=== PATIENT | male | born 1965 | race Caucasian/White ===

== ENCOUNTER 2018-01-15 12:26 | Inpatient (IN) | payer OTHER ==
[~2018-01-15] VITALS: Ht 177.8 cm; Wt 124.9 kg
[~2018-01-15 12:26] MED LIST: ANDROGEL75 G1 TOP; BUPROPION XL300 M1 PO; CARVEDILOL6.25 M1 PO; CREON DR 24,001 EACH PO; DEXTROAMP-AMPHE30 MG PO; GABAPENTIN400 M2 PO; HYDROXYZINE PAM25 M2 PO; IBUPROFEN800 M1 PO; LOSARTAN POTAS100 M1 PO; METHADONE10 MG/1 M2 PO; OMEGA-3 ACID ETH1 GM PO; ZOLPIDEM TARTRA10 M1 PO
[2018-01-15 13:22] LABS: ABSOLUTE BASOPHIL COUNT 0 /CUMM (0.0-0.2); ABSOLUTE EOSINOPHIL COUNT 0.1 /CUMM (0.0-0.7); ABSOLUTE GRANULOCYTE CT 13.9 /CUMM (1.4-6.5); ABSOLUTE LYMPH COUNT 1.2 /CUMM (1.2-3.4); ABSOLUTE MONOCYTE COUNT 0.5 /CUMM (0.10-0.60); BASOPHIL % 0.2 % (0.0-2.0); EOSINOPHIL % 0.5 % (0-5); HEMATOCRIT 29.3 % (42-52); MEAN CORPUSCULAR HGB 28.4 PG (27.0-31.0); MEAN CORPUSCULAR HGB CONC 33.3 G/DL (33.0-37.0); MEAN CORPUSCULAR VOLUME 85.2 FL (80.0-94.0); MEAN PLATELET VOLUME 6.4 FL (7.4-10.4); PLATELET COUNT 334 /CUMM (130-400); RBC DISTRIBUTION WIDTH 14.6 % (11.5-14.5); RED BLOOD CELL CT 3.44 /CUMM (4.70-6.10); WHITE BLOOD CELL COUNT 15.7 /CUMM (4.8-10.8)
--- NOTE | 2018-01-15 13:31 | ED DYSPNEA/ASTHMA COMPLAINT ---
History of Present Illness General Chief Complaint: General Adult Stated Complaint: SENT BY FOR POTENTIAL BLOOD CLOT IN CHEST Source: patient Exam Limitations: no limitations Vital Signs & Intake/Output Vital Signs & Intake/Output Vital Signs Date Time Temp Pulse Resp B/P B/P Pulse O2 O2 Flow FiO2 Mean Ox Delivery Rate 01/17 1925 40 01/17 1647 60 01/17 1430 60 01/17 1250 81 141/74 01/17 1249 80 141/74 01/17 1219 60 01/17 0850 60 01/17 0730 96.6 100 38 176/100 01/17 0609 98 92 01/17 0513 97.5 65 43 150/93 01/17 0342 101 91 01/17 0204 98.6 95 26 158/100 93 Nasal 5.0L Cannula 01/17 0202 84 Nasal 3.0L Cannula 01/17 0200 93.0 158/100 01/17 0000 91 Nasal 3.0L Cannula 01/16 2151 88 140/90 01/16 2147 97.5 88 140/90 91 Nasal 3.0L Cannula 01/16 2022 93 Nasal 3.0L Cannula ED Intake and Output 01/17 0000 01/16 1200 Intake Total 1440 Output Total 1001 700 Balance 439 -700 Intake, IV 120 Intake, Oral 1320 Number 2 Bowel Movements Output, Stool 1 Output, Urine 1000 700 Patient 275 lb Weight Allergies Coded Allergies: Penicillins (UNKNOWN 01/15/18) Reconcile Medications Bupropion HCl (Bupropion XL) 300 MG TAB.ER.24H 1 TAB PO QAM MENTAL HEALTH ( Reported) Carvedilol 6.25 MG TABLET 1 TAB PO BID HEART (Reported) Dextroamphetamine/Amphetamine (Dextroamp-Amphetamin 30 MG Tab) 30 MG TABLET 1 TAB PO BID MENTAL HEALTH (Reported) Gabapentin 400 MG CAPSULE 2 CAP PO TID UNKNOWN (Reported) Ibuprofen 800 MG TABLET 1 TAB PO TID PRN pain Lipase/Protease/Amylase (Feliz Guzman 24,000 Units Capsule) 24-76-120K CAPSULE.DR 3 TAB PO TID UNKNOWN (Reported) Losartan Potassium 100 MG TABLET 1 TAB PO DAILY HEART (Reported) Methadone HCl 10 MG/ML ORAL.CONC 30 MG PO DAILY MAINTENCE (Reported) [place]-3 Acid Ethyl Esters 1 GRAM CAPSULE 1 CAP PO TID SUPPLEMENT (Reported) Testosterone (Androgel) 20.25/1.25 ADMINISTRATIVE PROJECT COORDINATOR 40.5 TOP DAILY UNKNOWN ( Reported) Zolpidem Tartrate 10 MG TABLET 1 TAB PO QPM SLEEP (Reported) Triage Note: PT WAS [facility] FOR R/O PE. PT STATES SOB X 2 DAYS. PT TACHY IN TRIAGE HR 103. PT RECENTLY HAD SURGERY ON LEFT LEG COMPOUND FX. O2 SATS 89% ON RA Triage Nurses Notes Reviewed? yes Onset: Abrupt Duration: day(s): (2), constant, continues in ED, getting worse Timing: single episode today Severity: moderate, severe Activities at Onset: activity Prior Episodes/Possible Cause: no prior episodes Modifying Factors: Improves With: rest. Worsens With: movement. Associated Symptoms: cough HPI: 52-year-old male past medical history hypertension since run patient shortness of breath. Patient states that symptoms started 2 days ago to be getting worse. He reports that he feels short of breath and has a cough reductive of clear sputum that is worse on exertion. Improves somewhat with rest but is still present. Patient had surgery on his left lower extremity to repair a fracture 2 weeks ago. No previous history of PE or DVT. No chest pain or hemoptysis. No lower extremity edema that he can see. He does note that he has had episodes of acute bronchitis in the past multiple times initially thought that's what this was. He went to his primary care doctor today and was referred to the ER to rule out pulmonary embolism. He is also reporting pain in his left lower extremity related to the surgery. Taking morphine for this last dose was yesterday. He states the pain as a 10 out of 10. No numbness or tingling nausea vomiting sweats chills fever abdominal pain back pain or any other associated symptoms. (Ammon Walter) Past History Travel History Traveled to [place] past 21 day No Medical History Any Pertinent Medical History? see below for history Neurological: NONE EENT: NONE Cardiovascular: hypertension Respiratory: NONE Gastrointestinal: NONE Hepatic: NONE Renal: NONE Musculoskeletal: NONE Psychiatric: NONE Endocrine: NONE Blood Disorders: NONE Cancer(s): NONE GENERAL MANAGER IN TRAINING/Reproductive: NONE Surgical History Surgical History: none Psychosocial History What is your primary language Ugandan Tobacco Use: Quit >30 days ago ETOH Use: occasional use Illicit Drug Use: denies illicit drug use Family History Hx Contributory? No (Ammon Walter) Review of Systems Review of Systems Constitutional: Reports: no symptoms. EENTM: Reports: no symptoms. Respiratory: Reports: see HPI, cough, short of breath, sputum production, wheezing. Cardiovascular: Reports: no symptoms. GI: Reports: no symptoms. Genitourinary: Reports: no symptoms. Musculoskeletal: Reports: see HPI, joint pain, muscle pain, muscle stiffness. Skin: Reports: no symptoms. Neurological/Psychological: Reports: no symptoms. Hematologic/Endocrine: Reports: no symptoms. Immunologic/Allergic: Reports: no symptoms. All Other Systems: Reviewed and Negative (Ammon Walter) Physical Exam Physical Exam General Appearance: well developed/nourished, no apparent distress, alert, awake , obese Head: atraumatic, normal appearance Eyes: Bilateral: normal appearance, PERRL, EOMI. Ears, Nose, Throat: normal pharynx, normal ENT inspection, hearing grossly normal Neck: normal inspection, supple, full range of motion, NO JVD Respiratory: chest non-tender, no respiratory distress, rhonchi, wheezing Cardiovascular: normal peripheral pulses, tachycardia Peripheral Pulses: 2+ radial (R), 2+ radial (L) Gastrointestinal: soft, non-tender Extremities: THE LEFT LOWER EXTREMITY IS IN A CAST FROM THE PROXIMAL TIBIA TO THE FOOT. nO OBSERVABLE LOWER EXTREMITY EDEMA. fULL RANGE OF MOTION OF THE REMAINING EXTREMITIES Neurologic/Psych: no motor/sensory deficits, awake, alert, oriented x 3 Skin: intact, normal color, warm/dry Lymphatic: no anterior cervical esmer Core Measures ACS in differential dx? No CVA/TIA Diagnosis No Sepsis Present: No Sepsis Focused Exam Completed? No (Ammon Walter) Progress Differential Diagnosis: asthma, AMI, bronchitis, CHF, COPD, pulmonary embolism, pneumonia, unstable angina Plan of Care: Orders Procedure Date/time Status ARTERIAL BLOOD GAS (GEN) 01/18 0600 Active XRY-PORTABLE CHEST XRAY 01/18 0500 Active CBC WITHOUT DIFFERENTIAL 01/18 0500 Active Lab Add-on Test 01/17 1006 Active ARTERIAL BLOOD GAS (GEN) 01/17 0955 Complete RAPID VIRAL INFLUENZA A 01/17 0938 Complete Lab Add-on Test 01/17 0930 Active LACTIC ACID 01/17 0930 Complete CREATINE PHOSPHOKINASE 01/17 0930 Complete LOWER RESPIRATORY CULTURE 01/17 0920 Active Restraint- Medical 01/17 0901 Active Amos, Insertion/Removal/Asses 01/17 0901 Active VENTILATOR PARAMETERS 01/17 0850 Complete Lab Add-on Test 01/17 0737 Active CULTURE,URINE 01/17 0707 Active CULTURE,URINE 01/17 0639 Active GLYCOSYLATED HGB 01/17 0600 Complete TROPONIN LEVEL 01/17 0515 Complete PHOSPHORUS 01/17 0515 Complete LIPID PANEL 01/17 0515 Complete LIPASE 01/17 0515 Complete B-TYPE NATRIURETIC PEP (BNP) 01/17 0515 Complete AMYLASE 01/17 0515 Complete VRE ACTIVE SURVIELLANCE 01/17 0509 Active ACTIVE SURVEILLANCE NARES 01/17 0509 Active Transfer Disposition 01/17 0454 Active Transfer patient to 01/17 0425 Active ARTERIAL BLOOD GAS (GEN) 01/17 0256 Complete RT RE-EVALUATION 01/17 UNK Active OXYGEN SETUP (GEN) 01/17 UNK Complete CONTIN. POSITIVE AIRWAY PRESS 01/17 UNK Complete Lab Add-on Test 01/17 UNK Active Patient Safety Monitor 01/17 UNK Complete Restraint- Medical 01/17 UNK Active FingerStick- Glucose 01/17 UNK Active Amos, Insertion/Removal/Asses 01/17 UNK Active ICU LAB BUNDLE 01/17 UNK Active PSYCHIATRIC CONSULT 01/17 UNK Active OXYGEN SETUP CHG 01/16 UNK Complete INCENTIVE SPIROMETRY TRX CHG 01/16 UNK Complete AEROSOL CHG 01/16 UNK Complete OXYGEN 01/16 UNK Complete OXYGEN TRANSPORT 01/16 UNK Complete Current Medications Sig/Dylan Start time Last Medication Dose Stop Time Status Admin Cyanocobalamin/ 1 BAG DAILY 01/17 1851 AC Thiamine/Pyridoxine (Vitamin in I.V.) Dextrose/Water 1,000 ML (D5W 1000) Budesonide 0.5 MG BID 01/17 1415 AC 01/17 (Pulmicort) 1915 Lorazepam 100 MG Q10H 01/17 1400 AC 01/17 (Ativan Drip) 1435 Dextrose/Water 1,000 ML (Dextrose 5%) Methylprednisolone 40 MG Q8 01/17 1400 AC 01/17 (Solumedrol) 1251 Morphine Sulfate 2 MG Q6-PRN PRN 01/17 1030 AC (MORPHINE SULFATE) Nystatin 1 ARMIDA TID 01/17 1000 AC 01/17 (Mycostatin) 1515 Pantoprazole Sodium 40 MG DAILY 01/17 1000 AC 01/17 (Protonix) 1034 Propofol 1,000 MG Q7H 01/17 0945 AC 01/17 (PROPOFOL DRIP) 1653 N/A 1 UNIT (No Carrier) Azithromycin 500 MG Q24H 01/17 2000 AC 01/16 (Zithromax) 2150 Sodium Chloride 250 ML (Normal Saline 0.9%) Lorazepam 0 Q1P PRN 01/16 1315 AC 01/17 (Ativan) 0857 Albuterol Sulfate 3 ML BID 01/16 1000 AC 01/17 (Proventil) 1915 Ceftriaxone Sodium 1,000 MG DAILY 01/16 1000 AC 01/17 (Rocephin) 1034 Enoxaparin Sodium 40 MG DAILY 01/16 1000 AC 01/17 (Lovenox) 1035 Losartan Potassium 100 MG DAILY 01/16 1000 AC 01/17 (Cozaar) 1250 Carvedilol 6.25 MG BID 01/15 2200 AC 01/17 (Coreg) 1249 Montelukast Sodium 10 MG AT BEDTIME 01/15 2200 AC 01/16 (Singulair) 215 Acetaminophen 650 MG Q6P PRN 01/15 2030 AC (Tylenol) Laboratory Tests 01/17/18 1049: Lactic Acid 1.1, Creatine Kinase 53 L 01/17/18 1040: pH 7.41, pCO2 40, pO2 78 L, HCO3 24, ABG O2 Sat (Measured) 95.0 L, P-50 (Temp Corrected) N, Carboxyhemoglobin 0 L, O2 Concentration % 60%, Respiration Rate 20, O2 Delivery Method VENT, Vent Mode AC, Expiratory Pressure 5, Tidal Volume 500, Pressure Support 0, Phlebotomy Draw Site RIGHT RADIAL 01/17/18 0600: Hemoglobin A1c 5.8 01/17/18 0515: Anion Gap 14, Estimated GFR > 60, BUN/Creatinine Ratio 22.9, Phosphorus 4.3, Magnesium 1.8, Troponin I < 0.01, Mgy-V-[id number] Pept 1370 H, Triglycerides 115, Cholesterol 113, LDL Cholesterol, Calc 43 L, HDL Cholesterol 47, Cholesterol/HDL Ratio 2, Amylase 51, Lipase 121, CBC w Diff NO MAN DIFF REQ, RBC 3.40 L, MCV 86.8, MCH 27.7, MCHC 32.0 L, RDW 14.8 H, MPV 6.9 L, Gran % 83.2 H, Lymphocytes % 11.3 L, Monocytes % 4.8, Eosinophils % 0.3, Basophils % 0.4, Absolute Granulocytes 14.2 H, Absolute Lymphocytes 1.9, Absolute Monocytes 0.8 H, Absolute Eosinophils 0, Absolute Basophils 0.1 01/17/18 0310: pH 7.42, pCO2 36, pO2 66 L, HCO3 23, ABG O2 Sat (Measured) 93.0 L, P-50 (Temp Corrected) N, Carboxyhemoglobin 0.8 L, O2 Concentration % 6L, O2 Delivery Method N/C, Phlebotomy Draw Site RIGHT RADIAL Microbiology 01/17 1644 NASOPHARYN: Influenza Virus A & B Rapid Smear - COMP 01/17 900 LOWER RESP: Respiratory Culture - RES 01/17 900 LOWER RESP: Gram Stain - RES 01/17 07 URINE ROUT: Urine Culture - RECD 01/17 707 URINE ROUT: Urine Culture - COLB 01/17 500 UPPER RESP: Surveillance Culture - RECD 01/17 050 GI: Surveillance Culture - RECD Patient seen and evaluated. Currently he is hypoxic on room air to 89% he does have some wheezing and rhonchi. Is also slightly tachycardic. Patient will be medicated with a DuoNeb and IV morphine for pain control. We'll check basic blood work including d-dimer patient will also get a CTA to rule out PE. CTA was negative for PE but showed possible infiltrate/atelectasis in the right lower lobe. Patient does have an elevated white blood cell count of 16,000 with a left shift. Despite DuoNeb he still remains hypoxic. When he was an related in the emergency department he desaturated to the 80s. Patient is not on oxygen at baseline. He has no history of COPD or asthma. Patient will be admitted to the hospital for treatment of acute bronchitis/early pneumonia. He was given a dose of Zithromax, ceftriaxone and Solu-Medrol. Patient requires admission to the hospital for IV steroids, IV antibiotics, serial labs, serial chest x-rays, pulmonology consult, DuoNeb's, oxygen administration, monitoring of vital signs, serial EKGs. Case discussed with Dr. BUI and he agrees. Diagnostic Imaging: Viewed by Me: CT Scan. Discussed w/RAD: CT Scan. Radiology Impression: PATIENT: FANTA HAMLIN PRESENT AGE: 52 PATIENT ACCOUNT NO: [id number] : 65 LOCATION: [facility] ORDERING PHYSICIAN: Ammon FAIR SERVICE DATE: 01/15/18 EXAM TYPE: CAT - CTA CHEST-PULMONARY EMBOLISM EXAMINATION: CT ANGIOGRAM OF THE CHEST WITH AND WITHOUT CONTRAST (CT PULMONARY ANGIOGRAM FOR PE) CLINICAL INFORMATION: Reason for Study:
Presumptive Dx: PE
Signs Symptoms: SOB RECENT SURGERY
COMPARISON: None TECHNIQUE: Prior to contrast administration, noncontrast localization images were obtained. Subsequently, multidetector volumetric imaging was performed from the thoracic inlet to below the diaphragms following the administration of 80 mL Omnipaque 350 intravenous contrast. No contrast reaction reported. Sagittal, coronal, and MIP oblique sagittal reformatted images were obtained on the CT workstation, uploaded to PACS, and reviewed. Total exam dose- length product 585 mGy-cm. FINDINGS: The there is no filling defect to suggest a pulmonary embolism. Centrally a esophagus filled with fluid. Mildly dilated. There is some mild mediastinal adenopathy. Prominent subcarinal node measures 1.1 cm short axis. Precarinal node to the right of midline 1.3 cm Imaging lung best. Right lung; Small effusion on the right. Right basilar atelectasis/ infiltrate. Some scattered areas of lung nodularity. 4 mm nodule on image 37 right lung anterior. Groundglass nodule on image 40 measures 8 mm. 6 mm nodule on image 36 right lower lung zone. Left lung; Trace left-sided effusion. Mild left basilar atelectasis or infiltrate. 6 mm nodule on image 36 left lower lobe. Some smaller scattered areas of nodularity are noted. IMPRESSION: There is no filling defect to suggest a pulmonary embolism. Mild bi basilar right greater than left atelectasis/infiltrates and small right effusion and trace left effusion. Prominent central adenopathy. This may be reactive but underlying malignancy cannot be excluded.. Consider PET/CT at this time to further evaluate versus close follow-up CT in 3 months for continued evaluation of this and underlying nodularity described above. DICTATED BY: Denis Waters MD DATE/TIME DICTATED:01/15/181631 WORKFORCE SERVICES REPRESENTATIVE:NIDIA DATE/TIME TRANSCRIBED:1631 CONFIDENTIAL, DO NOT COPY WITHOUT APPROPRIATE AUTHORIZATION. Initial ED EKG: normal sinus rhythm (RATE 74), BORDERLINE PROLONGED QT (Ammon Walter) Departure Departure Disposition: STILL A PATIENT Condition: Stable Clinical Impression Primary Impression: Acute bronchitis Qualifiers: Bronchitis organism: unspecified organism Qualified Code: J20.9 - Acute bronchitis, unspecified Secondary Impressions: Hypoxia Leukocytosis Qualifiers: Leukocytosis type: unspecified Qualified Code: D72.829 - Elevated white blood cell count, unspecified Referrals: Harley Vasquez MD (PCP/Family) Departure Forms: Customer Survey General Discharge Information Admission Note Spoke With: Lindsey Herrera MD Documentation of Exam: Documentation of any treatments & extenuating circumstances including Concerns Regarding Discharge (functional status, medication knowledge or non-compliance, living conditions, etc.) that warrant an admission rather than observation: [duo nebs, iv steriods, iv antibiotics, serial labs, serial ekgs, serial chest x-rays , pulm consult oxygen] (Ammon Walter) PA/BIOLOGIST AIDE Co-Sign Statement Statement: ED Attending supervision documentation- X I saw and evaluated the patient. I have also reviewed all the pertinent lab results and diagnostic results. I agree with the findings and the plan of care as documented in the PA's/BIOLOGIST AIDE's documentation. S/P Sx with cough, sob, hypoxia. Pneumonia on CTA [] I have reviewed the ED Record and agree with the PA's/BIOLOGIST AIDE's documentation. [] Additions or exceptions (if any) to the PAs/BIOLOGIST AIDE's note and plan are summarized below: [] (Carina KU,Mark) Critical Care Note Critical Care Note Critical Care Time: 30-74 min (Ammon Walter)
[2018-01-15 13:33] LABS: PT 12.4 SEC (9.4-12.5); PTT 27 SEC (25-37)
[2018-01-15 13:47] LABS: GRANULOCYTE % 88.1 % (42.2-75.2)
--- NOTE | 2018-01-15 16:46 | CT SCAN REPORT ---
EXAMINATION: CT ANGIOGRAM OF THE CHEST WITH AND WITHOUT CONTRAST (CT PULMONARY ANGIOGRAM FOR PE) CLINICAL INFORMATION: Reason for Study:
Presumptive Dx: PE
Signs Symptoms: SOB RECENT SURGERY
COMPARISON: None TECHNIQUE: Prior to contrast administration, noncontrast localization images were obtained. Subsequently, multidetector volumetric imaging was performed from the thoracic inlet to below the diaphragms following the administration of 80 mL Omnipaque 350 intravenous contrast. No contrast reaction reported. Sagittal, coronal, and MIP oblique sagittal reformatted images were obtained on the CT workstation, uploaded to PACS, and reviewed. Total exam dose-length product 585 mGy-cm. FINDINGS: The there is no filling defect to suggest a pulmonary embolism. Centrally a esophagus filled with fluid. Mildly dilated. There is some mild mediastinal adenopathy. Prominent subcarinal node measures 1.1 cm short axis. Precarinal node to the right of midline 1.3 cm Imaging lung best. Right lung; Small effusion on the right. Right basilar atelectasis/infiltrate. Some scattered areas of lung nodularity. 4 mm nodule on image 37 right lung anterior. Groundglass nodule on image 40 measures 8 mm. 6 mm nodule on image 36 right lower lung zone. Left lung; Trace left-sided effusion. Mild left basilar atelectasis or infiltrate. 6 mm nodule on image 36 left lower lobe. Some smaller scattered areas of nodularity are noted. IMPRESSION: There is no filling defect to suggest a pulmonary embolism. Mild bi basilar right greater than left atelectasis/infiltrates and small right effusion and trace left effusion. Prominent central adenopathy. This may be reactive but underlying malignancy cannot be excluded.. Consider PET/CT at this time to further evaluate versus close follow-up CT in 3 months for continued evaluation of this and underlying nodularity described above.
--- NOTE | 2018-01-15 18:18 | History & Physical ---
Jalen KU,[facility] 01/15/181816: General Information and HPI MD Statement: I have seen and personally examined FANTA HAMLIN and documented this H&P. The patient is a 52 year old M who presented with a patient stated chief complaint of [shortness of breath]. Source of Information: patient, family Exam Limitations: no limitations History of Present Illness: 52 year old male past medical history of hypertension, ANDREW on CPAP at night presented to the ED with complains of worsening shortness of breath for the past 2 days. The patient states that on Monday afternoon he started feeling a little short of breath. On Monday his symptoms progressed getting worse with exertion and by night he had significant difficulty breathing even at rest. He put on his CPAP but that did little to help his symptoms. mentions she could hear him wheezing. He went to see his PCP this morning as he was still feeling short of breath this morning. Patient states that his oxygen sats were in the 80s while he was in the PCP office. His PCP advised him to go to the ER to rule out a blood clot in his lung as he recently had reconstructive surgery two weeks ago on his left leg after a fall. The mentions that the patient was having a cough since Monday, bringing up whitish sputum and he got some Robitussin DM for it which provided him some relief of symptoms. No history of sick contacts. Patient also mentions about having loose bowel movements 3-4 episodes per day since Monday. Patient states that he drinks about 2 pints of Vodka daily. Allergies/Medications Allergies: Coded Allergies: Penicillins (UNKNOWN 01/15/18) Home Med list Bupropion HCl (Bupropion XL) 300 MG TAB.ER.24H 1 TAB PO QAM MENTAL HEALTH ( Reported) Carvedilol 6.25 MG TABLET 1 TAB PO BID HEART (Reported) Dextroamphetamine/Amphetamine (Dextroamp-Amphetamin 30 MG Tab) 30 MG TABLET 1 TAB PO BID MENTAL HEALTH (Reported) Gabapentin 400 MG CAPSULE 2 CAP PO TID UNKNOWN (Reported) Ibuprofen 800 MG TABLET 1 TAB PO TID PRN pain Lipase/Protease/Amylase (Feliz Guzman 24,000 Units Capsule) 24-76-120K CAPSULE.DR 3 TAB PO TID UNKNOWN (Reported) Losartan Potassium 100 MG TABLET 1 TAB PO DAILY HEART (Reported) Methadone HCl 10 MG/ML ORAL.CONC 30 MG PO DAILY MAINTENCE (Reported) Mindoro-3 Acid Ethyl Esters 1 GRAM CAPSULE 1 CAP PO TID SUPPLEMENT (Reported) Testosterone (Androgel) 20.25/1.25 SPEECH INSTRUCTOR 40.5 TOP DAILY UNKNOWN ( Reported) Zolpidem Tartrate 10 MG TABLET 1 TAB PO QPM SLEEP (Reported) Past History Travel History Traveled to [place] past 21 day No Medical History Neurological: SEIZURE x 1 S/P HEAD INJ EENT: NONE Cardiovascular: hypertension Respiratory: CHRONIC BRONCHITIS SINCE Gastrointestinal: umbilical hernia Hepatic: NONE Renal: NONE Musculoskeletal: disk herniation, COMPOUND FX L ANKLE BONE SPURS IN NECK/BACK Psychiatric: NONE Endocrine: NONE Blood Disorders: NONE Cancer(s): NONE BRAZER CONTROLLED ATMOSPHERIC FURNACE/Reproductive: NONE Surgical History Surgical History: none Past Family/Social History Psychosocial History ETOH Use: occasional use Illicit Drug Use: denies illicit drug use Review of Systems Review of Systems Constitutional: Denies: chills, fever. EENTM: Reports: no symptoms. Cardiovascular: Reports: peripheral edema. Denies: chest pain, orthopena. Respiratory: Reports: cough, short of breath, sputum production, wheezing. GI: Reports: diarrhea. Denies: abdominal pain. Genitourinary: Reports: hesitation. Musculoskeletal: Reports: no symptoms. Skin: Reports: no symptoms. Neurological/Psychological: Reports: no symptoms. Exam & Diagnostic Data Last 24 Hrs of Vital Signs/I&O Vital Signs Date Time Temp Pulse Resp B/P B/P Pulse O2 O2 Flow FiO2 Mean Ox Delivery Rate 01/15 2027 98.2 86 18 126/73 94 Room Air 01/15 1720 98.5 88 22 150/93 96 Nasal 6.0L Cannula 01/15 1609 97 22 134/83 97 Nasal 6.0L Cannula 01/15 1420 91 20 134/67 95 Nasal 5.0L Cannula 01/15 1355 95 Nasal 4.0L Cannula 01/15 1330 Room Air 01/15 1254 99.8 102 20 123/71 89 Room Air Intake & Output 01/15 1600 01/15 0800 01/15 0000 Intake Total Output Total Balance Patient 250 lb Weight Weight Reported by Patient Measurement Method Physical Exam General Appearance Alert, Oriented X3, Cooperative, Mild Distress Skin No Rashes, No Breakdown Skin Temp/Moisture Exam: Warm/Dry Sepsis Skin Exam (color): Normal for Ethnicity HEENT Atraumatic Cardiovascular Normal S1, Normal S2, No Murmurs Lungs Clear to Auscultation, Normal Air Movement Abdomen Soft, No Tenderness Neurological Normal Speech Extremities RLE edema, Left leg in cast Assessment/Plan Assessment: 52 year old male past medical history of hypertension, ANDREW on CPAP at night presented to the ED with complains of worsening shortness of breath for the past 2 days. Assessment: 1. Acute Hypoxic Respiratory Failure likely secondary to bronchitis and ? underlying pneumonia 2. History of Heavy Alcohol Use 3. History of Hypertension 4. Left Foot Reconstructive Surgery 5. Anemia 6. Lung nodules Plan: * Patient likely has viral bronchitis though he could be developing superimposed pneumonia as demonstrated by his imaging. He does have a high white count of 15.7. * Oxygen supplementation if needed * Continue IV Ceftriaxone 1g and IV Azithromycin 500mg daily. * Prednisone 40mg with quick taper. * Continue CPAP at night. * TRC/Nebs as needed. * Pulm consult with Dr Martinez in am * Rapid flu test * Will follow up blood culture * Ativan per [facility]. He may go into withdrawal. * Utox - patient was on methadone for a while but states he's currently not on it. * He does have elevated proBNP. No wheezing on exam though. * His Chest CTA shows bilateral small nodules (6mm on left, 4mm and 6mm on right ) * Continue home medications for hypertension * Diet: Regular * DVT Prophylaxis: SC Lovenox * Code: Full Code As Ranked By This Provider Problem List: 1. Acute bronchitis Qualifiers Bronchitis organism: unspecified organism Qualified Code: J20.9 - Acute bronchitis, unspecified Core Measures/Misc (07/16) Acute Coronary Syndrome ACS Diagnosis: No Congestive Heart Failure Congestive Heart Failure Diagnosis No Cerebrovascular Accident CVA/TIA Diagnosis: No VTE (View Protocol) VTE Risk Factors Age>40 No Mechanical VTE Prophylaxis d/t N/A MechProphylax Ordered No VTE Pharm Prophylaxis d/t NA PharmProphylax ordered Sepsis (View protocol) Sepsis Present: No Anna Sorto MD 01/15/182125: Resident Review Statement Resident Statement: examined this patient, discussed with financial analyst intern, agreed with financial analyst intern Other Findings: The patient is a 52-year-old man with a past medical history of hypertension, ANDREW on CPAP at night, ADHD and recent left foot surgery 2 weeks prior to presentation with complaints of worsening shortness of breath for the past 3 days. His shortness of breath is worse with exertion and associated with a wheeze and cough productive of whitish sputum. He went to see his PCP this morning as he was still feeling short of breath and O2 sats were in the 80s. He was sent to the ER to rule out a blood clot in his lung as he recently had reconstructive surgery two weeks ago on his left leg after a fall. No history of sick contacts. Patient also mentions about having loose bowel movements 3-4 episodes per day since Monday. On presentation in the ER he was hypoxic on room air to 89%. CTA was negative for PE but showed mild bibasilar infiltrates/atelectasis R>L and prominent central adenopathy follow up CT in 3 month advised. Physical exam significant for bilateral bronchial breath sounds and mild expiratory wheeze on lung exam. Labs significant for ALP of 138 and Pro BNP of 904. CBC shows WBC of 15.7, Hb 9.8 and platelet of 334 without bands. Urinalysis clear. Urine toxicology benzodiazepines and opiates (medications administered in the ER). . Assessment 1. Acute hypoxic respiratory failure with multifactorial etiology-secondary to acute bronchitis with probable pneumonia and ANDREW 2. ETOH abuse at high risk for withdrawal 3. Hypertension 4. Left leg post surgical pain and chronic back pain 5. History of heroin abuse formerly on methadone 6. ANDREW on CPAP 7. ADHD Plan * [facility] * Patient received IV ceftriaxone and azithromycin in the ER and IV solumedrol 125 mg * Continue IV ceftriaxone 1 g daily and IV azithromycin 500 mg daily * Continue PO prednisone 40 mg daily and plan for quick taper * O2 by intranasal canula to keep SPO2 > 92% * Pulmonology consult with Dr. Martinez in the AM * Place on CIWA protocol and monitor for ETOH withdrawal as patient drinks 1-2 pints of vodka daily and last drink was reportedly yesterday * IV ativan as per CIWA for now * PO percocet 1 tab PO Q 6 hrs, IV morphine 4 mg Q 12 hrs for severe pain * Patient states that he stopped his methadone in August 2017 on his own accord * CTPMP checked today at 1200 AM and no concerning patterns of opiate use detected * [facility] ordered for CPAP at night for today. Patient and has been counselled to bring their own machine from home for tomorrow * Continue home medications for ADHD and depression * CA lovenox 40 mg daily * Patient is full code Kishan KU, [facility] 01/16/18 0031: Attending MD Review Statement Attending Statement Attending MD Statement: examined this patient, discuss w/resident/PA/CARTON FORMING MACHINE TENDER, agreed w/resident/PA/CARTON FORMING MACHINE TENDER, reviewed images, amended to note Attending Assessment/Plan: 52 yo obese M with h/o HTN, ANDREW on CPAP, recurrent bronchitis, ADHD, HLD, alcohol dependence, isolated seizure episode (probably from alcohol wd), pancreatitis, GERD, depression, chronic pain/ heroin abuse was on methadone, who underwent left foot recontructive surgery on December [address] Hassan ([place] ), is here for 2 day h/o exertional dyspnea, productive cough and wheezing. C/o congestion and hoarseness of voice. He went to his PCP's office where his O2 sats were in the low 80's so he was sent to ER for further evaluation. He reports being less active and more sedentary since his surgery. He is scheduled to follow with Dr. Hassan later this week. He denies chest pain, palpitations, lightheadedness, but reports having nonbloody diarrhea for past [address] 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 Patient reports alcohol abuse, drinks 2 pints of Vodka daily and reports never having undergone a detox. He is also on morphine for his pain as prescribed by Dr. Hassan. He also has oxycodone prescribed by PCP. He reports he does not take too much of them. Of note, patient was in a methadone program but stopped 2 months ago. Vitals: afebrile, HR 90-100's, BP 140/80, sats 89% RA --> 97% on 6L --> 94% on 2L. Exam: AAO, hoarse voice, seems hyperactive, speaking fast and at times difficult to understand his words, MMM, Neck supple, Pupils mid-dilated, RTL, Chest b/l reduced air entry with bibasilar rhonchi and expiratory wheeze, Heart S1S2 regular, Abd soft, obese, LE: chronic venous stasis changes, right leg 1+ edema+ , left leg in cast, peripheral pulse palpable on right. Labs: WBC 15.7, H/H 9.8/29.3 (baseline 12-15/ 38-44), D-dimer 476, lactic acid normal, trop neg, UA neg. Utox positive for opiates, benzos, also noted are methadone, amphetamines and phencyclidine. Alcohol < 10. CTA chest: no PE. Mild bibasilar atelectasis/ infiltrates with small right effusion and trace left effusion. Central adenopathy. EKG: sinus rhythm, no changes. Echo (2017): EF > 65%. PFT (2015): normal. Assessment and plan: 1. Acute hypoxic respiratory failure multifactorial in the setting of acute on chronic bronchitis with possible community acquired pneumonia and atelectasis. No evidence of PE. He has underlying sleep apnea and seems to be taking too much opiates which could be contributing to his hypoxia as well. 2. Chronic pain, recent surgery, polysubstance abuse 3. Alcohol dependence, watch for withdrawal 4. Essential hypertension 5. Anemia significant drop in the setting of recent surgery, however this needs to be evaluated. 6. Left foot reconstructive surgery - Admit to general medicine - [facility] nebs - Check flu swab, urine legionella and strep Ag, panculture - IV ceftriaxone and azithro - Rapid prednisone taper - Incentive spirometry - Add mucinex BID - Obtain baseline ABG - Pulm consult (Dr. Martinez) - Resume CPAP at night - Currently patient is awake, alert oriented, no need for Narcan. Patient already received 8 mg morphine IV in the ER. - Resume patient's home dose of morphine PO, and keep IV morphine as needed only. - CIWA protocol, no need for ativan at this point unless he shows signs of withdrawal - Type and crossmatch, goal Hb > 7.0, guaiac all stools. - Check TSH, B12, folic acid and iron studies. - Outpatient follow up with Dr. Hassan, patient does not wish to see Orthopedic surgeon here at [place]. DVT ppx Lovenox. Full code. - Resume CPAP at night - Currently patient is awake, alert oriented, no need for Narcan. Patient already received 8 mg morphine IV in the ER. - Resume patient's home dose of morphine PO, and keep IV morphine as needed only. - CIWA protocol, no need for ativan at this point unless he shows signs of withdrawal - Type and crossmatch, goal Hb > 7.0, guaiac all stools. - Check TSH, B12, folic acid and iron studies. - Outpatient follow up with Dr. Hassan, patient does not wish to see Orthopedic surgeon here at [place]. DVT ppx Lovenox. Full code.
[2018-01-15 21:58] VITALS: BP 167/89
--- NOTE | 2018-01-16 00:31 | Admission Certification ---
Admission Certification Certification Statement - As attending physician, I certify that at the time of - admission, based on clinical presentation, severity of - symptoms, need for further diagnostic testing and - therapeutic interventions, and risk of adverse outcomes - without in-hospital treatment, in my clinical assessment, - this patient requires an acute hospital stay for a minimum - of two nights or longer. I have also considered psychsocial - factors such as support system, advanced age, financial - issues, cognitive issues, and failed out-patient treatments, - past re-admission history, safety of patient, and lack of - compliance as applicable. Specific rationale supporting this admission is: Acute hypoxic respiratory failure, bronchitis, community acquired pneumonia, opiate abuse.
[2018-01-16 06:51] VITALS: BP 160/88
--- NOTE | 2018-01-16 07:06 | PN- Housestaff ---
Jalen KU,[facility] 01/16/18 0706: Subjective Follow-up For: Acute Hypoxic respiratory failure Alcohol withdrawal Subjective: Patient was seen and examined at bedside. He reports feeling better than yesterday. He ambulated last night and briefly the NC slipped off and he started feeling short of breath. States he is on Adderall at home which he would like to be continued on in the hospital. Review of Systems Constitutional: Reports: no symptoms. Respiratory: Reports: short of breath. Objective Last 24 Hrs of Vital Signs/I&O Vital Signs Date Time Temp Pulse Resp B/P B/P Pulse O2 O2 Flow FiO2 Mean Ox Delivery Rate 01/16 1303 84 150/84 01/16 1052 98 150/88 01/16 0837 Nasal 3.0L Cannula 01/16 0837 94 Nasal 3.0L Cannula 01/16 0651 97.8 100 28 160/88 94 Nasal 3.0L Cannula 01/16 0039 94 Nasal 2.0L Cannula 01/15 2325 94 148/80 01/15 2233 Nasal 2.0L Cannula 01/15 2158 97.4 94 20 167/89 94 Nasal 2.0L Cannula 01/15 2027 98.2 86 18 126/73 94 Room Air 01/15 1720 98.5 88 22 150/93 96 Nasal 6.0L Cannula 01/15 1609 97 22 134/83 97 Nasal 6.0L Cannula 01/15 1420 91 20 134/67 95 Nasal 5.0L Cannula 01/15 1355 95 Nasal 4.0L Cannula 01/15 1330 Room Air Intake & Output 01/16 1600 01/16 0800 01/16 0000 Intake Total Output Total 700 250 Balance -700 -250 Output, Urine 700 250 Patient 275 lb 250 lb Weight Weight Reported by Patient Measurement Method Physical Exam General Appearance: Alert, Oriented X3, Cooperative, Mild Distress Skin: No Rashes, No Breakdown Skin Temp/Moisture Exam: Warm/Dry Sepsis Skin Exam (color): Normal for Ethnicity HEENT: Atraumatic Cardiovascular: Normal S1, Normal S2, No Murmurs Lungs: Normal Air Movement, mild wheezing in lower lobes bilaterally Abdomen: Soft, No Tenderness Neurological: Normal Speech Extremities: RLE edema, LLE in cast Assessment/Plan Assessment: 52 year old male past medical history of hypertension, ANDREW on CPAP at night presented to the ED with complains of worsening shortness of breath for the past 2 days. Assessment: 1. Acute Hypoxic Respiratory Failure likely secondary to bronchitis and ? underlying pneumonia 2. History of Heavy Alcohol Use 3. History of Hypertension 4. Left Foot Reconstructive Surgery 5. Anemia 6. Lung nodules Plan: * Patient likely has viral bronchitis though he could be developing superimposed pneumonia as demonstrated by his imaging. His white count has improved since yesterday. * Continue oxygen supplementation to maintain sats >92%. Currently on 3L. Will wean off as tolerated. * Continue IV Ceftriaxone 1g and IV Azithromycin 500mg daily. * Prednisone 40mg daily for 5 days. * Continue CPAP at night. * TRC/Nebs as needed. * Pulm recs appreciated. * Rapid flu test was negative * Will follow up blood culture * IV Ativan prn per JUAN DAVID. Would avoid standing doses as he has been somnolent. * Utox has been positive for opiates and benzodiazepine. Patient states he was on methadone for a while but states he's currently not on it and that it was discontinued two months ago. * He did have elevated proBNP. * Would pursue echo. * His Chest CTA shows bilateral small nodules (6mm on left, 4mm and 6mm on right ). 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 * Continue home medications for hypertension and chronic pain. * Diet: Regular * DVT Prophylaxis: SC Lovenox * Code: Full Code Problem List: 1. Acute bronchitis Pain Ratin Pain Location: none Pain Goal: Remain pain free Pain Plan: none Tomorrow's Labs & Rationales: CBC SoniBoydalirio 01/16/18 1141: Attending MD Review Statement Attending Statement Attending MD Statement: examined this patient, discuss w/resident/PA/INSTRUCTOR PHYSICAL EDUCATION, agreed w/resident/PA/INSTRUCTOR PHYSICAL EDUCATION, discussed with family, reviewed EMR data (avail), discussed with nursing, discussed with case mgmt, reviewed images, amended to note Attending Assessment/Plan: Patient appears to be lethargic. Sleeping during conversation, However responding appropriately to quesitons. cpap at night for ANDREW. Labs and imaging noted. Assessment and plan: 1. Acute hypoxic respiratory failure/dyspnea multifactorial in the setting of acute on chronic bronchitis with possible community acquired pneumonia and atelectasis. No evidence of PE. He has underlying sleep apnea and seems to be taking too much opiates which could be contributing to his hypoxia as well. 2. Chronic pain, recent surgery, polysubstance abuse 3. Alcohol dependence, watch for withdrawal 4. Essential hypertension 5. Anemia significant drop in the setting of recent surgery, however this needs to be evaluated. 6. Left foot reconstructive surgery - Admit to general medicine - TRC nebs - Negative flu swab, f/u cultures - IV ceftriaxone and azithro - Rapid prednisone taper - Incentive spirometry - Add mucinex BID - Pulm consult f/u - c/w CPAP at night. - Resume patient's home dose of morphine PO, and keep IV morphine as needed only. - Type and crossmatch, goal Hb > 7.0, guaiac all stools. - f/u TSH, B12, folic acid and iron studies. - Outpatient follow up with Dr. Hassan, patient does not wish to see Orthopedic surgeon here at [place]. DVT ppx Lovenox. Full code.
[2018-01-16 08:42] LABS: ABSOLUTE BASOPHIL COUNT 0 /CUMM (0.0-0.2); ABSOLUTE EOSINOPHIL COUNT 0 /CUMM (0.0-0.7); ABSOLUTE GRANULOCYTE CT 11.1 /CUMM (1.4-6.5); ABSOLUTE LYMPH COUNT 0.8 /CUMM (1.2-3.4); ABSOLUTE MONOCYTE COUNT 0.4 /CUMM (0.10-0.60); BASOPHIL % 0 % (0.0-2.0); EOSINOPHIL % 0 % (0-5); HEMATOCRIT 28.2 % (42-52); MEAN CORPUSCULAR HGB 28.6 PG (27.0-31.0); MEAN CORPUSCULAR HGB CONC 32.9 G/DL (33.0-37.0); MEAN PLATELET VOLUME 6.9 FL (7.4-10.4); RBC DISTRIBUTION WIDTH 14.8 % (11.5-14.5); RED BLOOD CELL CT 3.24 /CUMM (4.70-6.10); WHITE BLOOD CELL COUNT 12.3 /CUMM (4.8-10.8)
[2018-01-16 11:46] LABS: GRANULOCYTE % 90.5 % (42.2-75.2); PLATELET COUNT 294 /CUMM (130-400)
[2018-01-16 14:09] VITALS: BP 149/80
--- NOTE | 2018-01-16 15:25 | Cons- Pulmonary ---
General Information and HPI Consulting Request Date of Consult: 01/16/18 Requested By: Dr. Shafer Reason for Consult: dyspnea Source of Information: patient Exam Limitations: no limitations History of Present Illness: 52M known from office. has a hx of reactive airways disease, hypertension, extremely severe sleep apnea. Here for dyspnea after recent foot fracture on left. Dx with bronchitis likely viral. Hypoxemic respiratory failure. CT chest with small nodules and likely reactive mild mediastinal adenopathy. Minimal phlegm. Doing/feeling better. Also with leg edema. At home on Symbicort 160/4.5mcg 2 puffs BID. Has taken intermittently, will resume daily. Proair as needed On CPAP and Ambien therapy. No n/v/d/c. No palpitations. No recent travel hx or obvious sick contacts. Allergies/Medications Allergies: Coded Allergies: Penicillins (UNKNOWN 01/15/18) Home Med List: Bupropion HCl (Bupropion XL) 300 MG TAB.ER.24H 1 TAB PO QAM MENTAL HEALTH ( Reported) Carvedilol 6.25 MG TABLET 1 TAB PO BID HEART (Reported) Dextroamphetamine/Amphetamine (Dextroamp-Amphetamin 30 MG Tab) 30 MG TABLET 1 TAB PO BID MENTAL HEALTH (Reported) Gabapentin 400 MG CAPSULE 2 CAP PO TID UNKNOWN (Reported) Ibuprofen 800 MG TABLET 1 TAB PO TID PRN pain Lipase/Protease/Amylase (Feliz Guzman 24,000 Units Capsule) 24-76-120K CAPSULE.DR 3 TAB PO TID UNKNOWN (Reported) Losartan Potassium 100 MG TABLET 1 TAB PO DAILY HEART (Reported) Methadone HCl 10 MG/ML ORAL.CONC 30 MG PO DAILY MAINTENCE (Reported) Adams-3 Acid Ethyl Esters 1 GRAM CAPSULE 1 CAP PO TID SUPPLEMENT (Reported) Testosterone (Androgel) 20.25/1.25 GEL.PACKAGE LINE RELIEF OPERATOR 40.5 TOP DAILY UNKNOWN ( Reported) Zolpidem Tartrate 10 MG TABLET 1 TAB PO QPM SLEEP (Reported) Current Medications: Current Medications Sig/Dylan Start time Last Medication Dose Route Stop Time Status Admin Acetaminophen 650 MG Q6P PRN 01/15 2030 AC PO Albuterol Sulfate 3 ML BID 01/16 1000 AC 01/16 INH 0852 Azithromycin 500 MG Q24H 01/16 2000 AC Sodium Chloride 250 ML IV Azithromycin 500 MG Q24H 01/15 2030 DC Sodium Chloride 250 ML IV Azithromycin 500 MG ONCE ONE 01/15 1800 DC 01/15 Dextrose/Water 250 ML IV 01/15 1859 1943 Budesonide/ 2 PUF BID 01/15 2200 AC 01/16 Formoterol Fumarate INH 1048 Bupropion HCl 300 MG QAM 01/16 1000 AC 01/16 PO 1047 Carvedilol 6.25 MG BID 01/15 2200 AC 01/16 PO 1303 Ceftriaxone Sodium 1,000 MG DAILY 01/16 1000 AC 01/16 IV 1047 Ceftriaxone Sodium 0 .STK-MED ONE 01/16 1932 DC .ROUTE Ceftriaxone Sodium 1,000 MG ONCE ONE 01/15 1800 DC 01/15 IV 01/15 180 194 Enoxaparin Sodium 40 MG DAILY 01/16 1000 AC 01/16 SC 1047 Fish Oil 1,050 MG TID 01/150 AC 01/16 PO 1047 Gabapentin 800 MG TID 01/150 AC 01/16 PO 1047 Guaifenesin/ 10 ML ONCE ONE 01/16 0015 DC 01/16 Dextromethorphan PO 01/16 0016 0057 Lipase/Protease/ 1 CAP WM 01/16 0800 AC 01/16 Amylase PO 1047 Lorazepam 2 MG ONE ONE 01/16 1315 DC 01/16 IV 01/16 1316 1311 Lorazepam 0 Q1P PRN 01/16 1315 AC IV Lorazepam 0 Q1P PRN 01/15 2030 DC IV Losartan Potassium 100 MG DAILY 01/16 1000 AC 01/16 PO 1052 Magnesium Sulfate 1 GM ONCE ONE 01/16 1445 AC Dextrose/Water 100 ML IV 01/16 1844 Methylprednisolone 0 .STK-MED ONE 01/16 1932 DC .ROUTE Methylprednisolone 125 MG ONCE ONE 01/15 1800 DC 01/15 IV 01/15 180 194 Montelukast Sodium 10 MG AT BEDTIME 01/15 2200 AC 01/15 PO 2328 Morphine Sulfate 4 MG Q12P PRN 01/15 2030 AC 01/16 IV 0816 Morphine Sulfate 30 MG Q6PRN PRN 01/15 2030 AC 01/16 PO 1107 Morphine Sulfate 2 MG ONCE ONE 01/15 2030 CAN IV 01/15 203 Morphine Sulfate 4 MG ONCE ONE 01/15 1615 DC 01/15 IV 01/15 1616 1608 Morphine Sulfate 0 .STK-MED ONE 01/15 1610 DC .ROUTE Non-Formulary 0 SEE ADMIN CRITERIA 01/150 CAN Medication ANY Patient Medication 1 ED ONE ONE 01/16 1530 AC Teaching ED 01/16 1531 Prednisone 40 MG DAILY 01/16 1132 AC 01/16 PO 01/20 1001 1302 Prednisone 40 MG DAILY 01/16 1000 DC PO Prednisone 40 MG TAPER 01/16 1000 CAN PO 01/20 0959 Zolpidem Tartrate 10 MG QPM 01/15 2200 AC 01/15 PO 2333 Review of Systems Comments 18 point review of systems was performed and reviewed. Please see pertinent positives and pertinent negatives in the HPI. Otherwise ROS is negative. 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: NONE Surgical History Surgical History: 1 Family History Relations & Conditions If Any: Relation not specified for: *No pertinent family history Psychosocial History Services at Home: None Smoking Status: Former Smoker ETOH Use: occasional use Illicit Drug Use: denies illicit drug use Exam & Diagnostic Data Last 24 Hrs of Vital Signs/I&O Vital Signs Date Time Temp Pulse Resp B/P B/P Pulse O2 O2 Flow FiO2 Mean Ox Delivery Rate 01/16 1409 97.4 94 24 149/80 92 Nasal 2.0L Cannula 01/16 1303 84 150/84 01/16 1052 98 150/88 01/16 0837 Nasal 3.0L Cannula 01/16 0837 94 Nasal 3.0L Cannula 01/16 0800 93 Nasal 3.0L Cannula 01/16 0651 97.8 100 28 160/88 94 Nasal 3.0L Cannula 01/16 0039 94 Nasal 2.0L Cannula 01/15 2325 94 148/80 01/15 2233 Nasal 2.0L Cannula 01/15 2158 97.4 94 20 167/89 94 Nasal 2.0L Cannula 01/15 2027 98.2 86 18 126/73 94 Room Air 01/15 1720 98.5 88 22 150/93 96 Nasal 6.0L Cannula 01/15 1609 97 22 134/83 97 Nasal 6.0L Cannula Intake & Output 01/16 1600 01/16 0800 01/16 0000 Intake Total Output Total 700 250 Balance -700 -250 Output, Urine 700 250 Patient 275 lb 250 lb Weight Weight Reported by Patient Measurement Method Physical Exam Other Physical Findings: gen awake and alert heent ncat cvs s1, s2 lungs rare rhonchi abd soft, obese ext left foot cast, right trace edema Last 48 Hrs of Labs/Maurilio: Laboratory Tests 01/16/18 0735: CBC w Diff NO MAN DIFF REQ, RBC 3.24 L, MCV 87.0, MCH 28.6, MCHC 32.9 L, RDW 14.8 H, MPV 6.9 L, Gran % 90.5 H, Lymphocytes % 6.4 L, Monocytes % 3.1, Eosinophils % 0, Basophils % 0, Absolute Granulocytes 11.1 H, Absolute Lymphocytes 0.8 L, Absolute Monocytes 0.4, Absolute Eosinophils 0, Absolute Basophils 0 01/15/180: Urine Opiates Screen > 4000.00 H, Methadone Screen 48, Barbiturate Screen < 60, Ur Phencyclidine Scrn 11.10, Amphetamines Screen 557, U Benzodiazepines Scrn > 800 H, Urine Cocaine Screen < 50, Urine Cannabis Screen < 5.00, Urine Color YEL , Urine Clarity HAZY H, Urine pH 6.5, Ur Specific [place] 1.010, Urine Protein 30 H, Urine Ketones NEG, Urine Nitrite NEG, Urine Bilirubin NEG, Urine Urobilinogen 0.2, Ur Leukocyte Esterase NEG, Ur Microscopic SEDIMENT EXAMINED, Urine RBC RARE, Urine WBC RARE, Urine Hemoglobin NEG, Urine Glucose NEG 01/15/18 1315: Anion Gap 16, Estimated GFR > 60, BUN/Creatinine Ratio 16.7, Glucose 144 H, Lactic Acid 1.6, Calcium 9.4, Magnesium 1.4 L, Iron 27 L, TIBC 412, % Saturation 7 L, Ferritin 45.9, Total Bilirubin 0.7, AST 36, ALT 41, Alkaline Phosphatase 138 H, Troponin I < 0.01, Ilq-[id number] Pept 904 H, Total Protein 6.9, Albumin 3.7, Globulin 3.2, Albumin/Globulin Ratio 1.2, Vitamin B12 305, Folate > 20.0 H, TSH 2.830, PT 12.4, INR 1.14, APTT 27, D-Dimer High Sensitivty 476 H, CBC w Diff NO MAN DIFF REQ, RBC 3.44 L, MCV 85.2, MCH 28.4, MCHC 33.3, RDW 14.6 H, MPV 6.4 L, Gran % 88.1 H, Lymphocytes % 7.7 L, Monocytes % 3.5, Eosinophils % 0.5, Basophils % 0.2, Absolute Granulocytes 13.9 H, Absolute Lymphocytes 1.2, Absolute Monocytes 0.5, Absolute Eosinophils 0.1, Absolute Basophils 0, Serum Alcohol < 10.0 Microbiology 01/16 0100 NASOPHARYN: Influenza Virus A & B Rapid Smear - COMP Assessment/Plan Impression/Plan: Impression 52 year old man * acute hypoxemic respiratory failure, secondary to likely viral bronchitis * [place] * leg edema Plan -prednisone 40mg po x 5 days -cont abx -will need outpt imaging follow up -trc/nebs -cpap at night -okay with davidien q -recommend ECHO DVT prophylaxis at all times Consult Acknowledgment - Thank you for your consult request.
--- NOTE | 2018-01-16 21:03 | ECHOCARDIOGRAM REPORT ---
FANTA HAMLIN Age: 52 : 1965 Gender: M Exam Date: 01/16/2018 19:32 Exam Location: [address] [place] [address] Ht (in): 70 Wt (lb): 275 BSA: 2.54 BP: 149 / 80 Ordering Physician: Maciej Rao MD Referring Physician: Maciej Rao MD Technologist: Sheela Montgomery [facility] Room Number: [id number] Indications: PULMONARY HYPERTENSION Rhythm: Sinus Technical Quality: Fair FINDINGS Left Ventricle Normal size left ventricle. No obvious regional wall motion abnormalities. Left ventricular wall thickness increased. Right Ventricle Right ventricle at upper limits of normal. Right Atrium Normal right atrial size. Left Atrium Moderate left atrial dilatation. Mitral Valve Mitral valve thickened. Alcp-qh-tzvkhiyw mitral regurgitation. Aortic Valve Trileaflet aortic valve. Diffuse thickening (sclerosis) of the aortic valve cusps without reduced excursion. No aortic stenosis. No aortic regurgitation. Tricuspid Valve Tricuspid valve not well visualized, grossly normal. Mild tricuspid regurgitation. Right ventricular systolic pressure estimated at 40 mmHg. Pulmonic Valve Pulmonic valve not well visualized. Pericardium Minimal pericardial effusion (normal variant). Great Vessels Aortic root and proximal ascending aorta not well visualized, grossly normal. CONCLUSIONS 1. This was a technically difficult examination. 2. Aortic sclerosis is present with no valvular stenosis or insufficiency. 3. Mitral leaflet thickening is present with mild to moderate mitral insufficiency and moderate left atrial enlargement. 4. A physiologic pericardial effusion is noted. 5. The left ventricular chamber size and systolic function are normal with mild concentric hypertrophy and no resting wall motion abnormalities. Mild diastolic dysfunction is present. 6. Mild tricuspid insufficiency is present with an estimated RV systolic pressure of at least 40 mmHg. 7. Lipomatous atrial septal hypertrophy is noted. Mason Boston M.D. (Electronically Signed) Final Date: 16 January 2018 21:02 MEASUREMENTS (Male / Female) Normal Values 2D ECHO LV Diastolic Diameter PLAX 5.1 cm 4.2 - 5.9 / 3.9 - 5.3 cm LV Systolic Diameter PLAX 3.2 cm 2.1 - 4.0 cm LV Fractional Shortening PLAX 37.3 % 25 - 46 % LV Ejection Fraction 2D Teich 66.9 % IVS Diastolic Thickness 1.3 cm LVPW Diastolic Thickness 1.3 cm LV Relative Wall Thickness 0.5 RV Internal Dim ED PLAX 4.0 cm 1.9 - 3.8 cm LVOT Diameter 2.2 cm Aortic Root Diameter 2.9 cm LA Systolic Diameter LX 4.8 cm 3.0 - 4.0 / 2.7 - 3.8 cm LA Volume 53.0 cm 18 - 58 / 22 - 52 cm Ascending Aorta Diameter 2.9 cm DOPPLER AV Peak Velocity 152.0 cm/s AV Peak Gradient 9.2 mmHg AV Mean Velocity 113.0 cm/s AV Mean Gradient 6.0 mmHg AV Velocity Time Integral 29.7 cm LVOT Peak Velocity 128.0 cm/s LVOT Peak Gradient 6.6 mmHg LVOT Mean Velocity 85.6 cm/s LVOT Mean Gradient 3.0 mmHg LVOT Velocity Time Integral 24.5 cm LVOT Stroke Volume 93.1 cm AV Area Cont Eq vti 3.1 cm AV Area Cont Eq pk 3.2 cm MV Peak Velocity 146.0 cm/s MV Peak Gradient 8.5 mmHg MV Mean Velocity 66.1 cm/s MV Mean Gradient 2.0 mmHg Mitral E Point Velocity 134.0 cm/s Mitral A Point Velocity 69.9 cm/s Mitral E to A Ratio 1.9 MV PHT Velocity 153.0 cm/s MV Deceleration [place] 430.0 cm/s MV Pressure Half Time 106.7 ms MV Area PHT 2.1 cm MV Deceleration Time 140.0 ms TR Peak Velocity 301.0 cm/s TR Peak Gradient 36.2 mmHg Right Atrial Pressure 5.0 mmHg Pulmonary Artery Systolic Pressu 41.2 mmHg Right Ventricular Systolic Press 41.2 mmHg PV Peak Velocity 117.0 cm/s PV Peak Gradient 5.5 mmHg PV Mean Velocity 85.9 cm/s PV Mean Gradient 3.0 mmHg PV Velocity Time Integral 24.9 cm LV E' Lateral Velocity 13.9 cm/s Mitral E to LV E' Lateral Ratio 9.6 LV E' Septal Velocity 9.8 cm/s Mitral E to LV E' Septal Ratio 13.6
[2018-01-16 21:47] VITALS: BP 140/90
[2018-01-17] VITALS (14 sets, daily range): BP systolic 122–199; BP diastolic 64–116
--- NOTE | 2018-01-17 03:21 | Event Note ---
Event Note Event Note: I was paged that patient is agitated and saturation was decreased to 80s. Went to see the patient and his oxygen was increased from 3 L to 5 L and his saturation was 94%. Patient was getting Ativan after every hour as his CIWA score is high. A/P: Patient was examined. On examination his breathing sounds were clear on both sides with normal air entry. Patient was drowsy and not able to follow the commands. ABGs were ordered to see if patient is retaining CO2 that came back normal. Case was discussed with attending and will plan to put the patient on CPAP. Later on patient was reassessed again also he was using CPAP but his saturation was 93% with difficulty in breathing and gurgling sound in the lungs. Considering patient is low threshold to be intubated and requiring Ativan after every 1 hour, it was decided to transfer the patient to ICU for close monitoring. Patient's family was informed about patient's condition and transfer to ICU. They agreed with the plan that if patient start deteriorating we will intubate him.
[2018-01-17 05:39] LABS: ABSOLUTE BASOPHIL COUNT 0.1 /CUMM (0.0-0.2); ABSOLUTE EOSINOPHIL COUNT 0 /CUMM (0.0-0.7); ABSOLUTE GRANULOCYTE CT 14.2 /CUMM (1.4-6.5); ABSOLUTE LYMPH COUNT 1.9 /CUMM (1.2-3.4); ABSOLUTE MONOCYTE COUNT 0.8 /CUMM (0.10-0.60); BASOPHIL % 0.4 % (0.0-2.0); EOSINOPHIL % 0.3 % (0-5); GRANULOCYTE % 83.2 % (42.2-75.2); HEMATOCRIT 29.5 % (42-52); MEAN CORPUSCULAR HGB 27.7 PG (27.0-31.0); MEAN CORPUSCULAR VOLUME 86.8 FL (80.0-94.0); MEAN PLATELET VOLUME 6.9 FL (7.4-10.4); PLATELET COUNT 351 /CUMM (130-400); RBC DISTRIBUTION WIDTH 14.8 % (11.5-14.5); WHITE BLOOD CELL COUNT 17.1 /CUMM (4.8-10.8)
--- NOTE | 2018-01-17 06:35 | RADIOLOGY REPORT ---
EXAMINATION: XR PORTABLE CHEST CLINICAL INFORMATION: Shortness of breath. Desaturation. COMPARISON: None TECHNIQUE: Portable frontal view of the chest was obtained. 6:02 AM FINDINGS: The projection is apical lordotic. Lung volume is low. This causes crowding of the bronchovascular markings. There is no significant central pulmonary vascular congestion. There is no infiltrate or pleural effusion or pneumothorax. IMPRESSION: Low lung volume. No acute abnormality of the chest.
--- NOTE | 2018-01-17 07:28 | Transfer of Care Summary ---
Hospital Course Course Hospital Course: 52 year old male past medical history of hypertension, ANDREW on CPAP at night presented to the ED with complains of worsening shortness of breath for the past 2 days. He reported using 2 pints of vodka/day Hospital Course: Mr Vitale was admitted with a diagnosis of acute hypoxic respiratory failure likely secondary tp viral bronchitis with possible pneumonia. He was started on oxygen 3L via NC, as well as IV Ceftriaxone and Azithromycin for pneumonia and a 5 day course of Prednisone 40mg. He was initially started on IV Ativan prn per JUAN DAVID. However, by yesterday evening, the patient was reported to be increasingly agitated and hence he was started on scheduled Ativan 2mg q6. Overnight patient was reported to be increasingly agitated requiring frequent doses of IV Ativan. His respiratory status deteriorated with his sats in 80s on 8L of oxygen. He was thus transferred to the ICU for possible intubation and IV Ativan drip to treat for alcohol withdrawal. Significant Procedures: SERVICE DATE: 01/15/18 EXAM TYPE: CAT - CTA CHEST-PULMONARY EMBOLISM IMPRESSION: There is no filling defect to suggest a pulmonary embolism. Mild bi basilar right greater than left atelectasis/infiltrates and small right effusion and trace left effusion. Prominent central adenopathy. This may be reactive but underlying malignancy cannot be excluded.. Consider PET/CT at this time to further evaluate versus close follow-up CT in 3 months for continued evaluation of this and underlying nodularity described above. Assessment/Plan: Assessment: 1. Acute Hypoxic Respiratory Failure likely secondary to bronchitis and ? underlying pneumonia 2. History of Heavy Alcohol Use 3. History of Hypertension 4. Left Foot Reconstructive Surgery 5. Anemia 6. Lung nodules 7. History of ANDREW on CPAP at night Plan: * Continue monitoring in the ICU. * Continue IV antibiotics and Ativan as per primary team. * follow up blood culture * Nurse had concerns that patient may have aspirated during last night's episode. Consider CXR in 24-48 hours. * Utox has been positive for opiates and benzodiazepine. Patient states he was on methadone for a while but states he's currently not on it and that it was discontinued two months ago. * Consider Clonidine * Follow up Echo * His Chest CTA shows bilateral small nodules (6mm on left, 4mm and 6mm on right ). 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 * Diet: Regular * DVT Prophylaxis: SC Lovenox * Code: Full Code
--- NOTE | 2018-01-17 08:58 | Event Note ---
Event Note Event Note: I spoke around 8:35 A.M with his about that we will need to intubating him to protect his airway and starting him on Ativan drip for detox. She agree with that.
--- NOTE | 2018-01-17 08:58 | PN- Resident CRCU ---
Jase KU,Jayne 01/17/18 0858: Subjective HPI/CRCU Issues: Patient was transferred at approximately 5 AM to the ICU due to worsening respiratory status and increased requirement of Ativan. Patient was intubated at approximately 9 AM in the ICU and placed on a propofol drip. Patient was started on IV Ativan drip at rate of 10. Vitals: MAXIMUM TEMPERATURE of 98.6, heart rate 80-101, respiration rate ranging from the 20s to 40s, blood pressure in the morning prior to intubation was greater than 200 systolic, after intubation repeat blood pressure was 141/74 patient saturating in the low 90s to mid 90s on mechanical ventilation. Labs: WBC 17.1 with 83.2% granulocytes, H&H 9.4 and 29.5, platelet count 351 Sodium 145, potassium 3.9, chloride 104, bicarbonate 27, BUN 16, creatinine 0.7, phosphorus 4.3, magnesium 1.8, upon and less than 0.01, proBNP increased at 1370 from 904, Imaging: Chest x-ray prior to intubation: Low lung volumes, no acute abnormality Chest x-ray after intubation: Endotracheal tube at approximately 4 cm above the flori, OG tube within the stomach, worsening airspace opacity within the right mid lung and at the right lung base Objective Vital Signs & I&O Last 8 Hrs of Vitals and I&O: Vital Signs Date Time Temp Pulse Resp B/P B/P Pulse O2 O2 Flow FiO2 Mean Ox Delivery Rate 01/17 1647 60 01/17 1430 60 01/17 1250 81 141/74 01/17 1249 80 141/74 01/17 1219 60 01/17 0850 60 01/17 0730 96.6 100 38 176/100 01/17 0609 98 92 01/17 0513 97.5 65 43 150/93 01/17 0342 101 91 01/17 0204 98.6 95 26 158/100 93 Nasal 5.0L Cannula 01/17 020 84 Nasal 3.0L Cannula 01/17 0200 93.0 158/100 01/17 0000 91 Nasal 3.0L Cannula 01/161 88 140/90 01/167 97.5 88 140/90 91 Nasal 3.0L Cannula 01/16 2022 93 Nasal 3.0L Cannula Intake & Output 01/17 1600 01/17 0800 01/17 0000 Intake Total 30 700 Output Total 200 501 Balance -170 199 Intake, IV 30 100 Intake, Oral 0 600 Number 0 1 Bowel Movements Output, Stool 1 Output, Urine 200 500 Exam General Appearance: well developed/nourished, sedated, intubated, obese Respiratory: rhonchi Cardiovascular: regular rate/rhythm Gastrointestinal: normal bowel sounds, soft, non-tender, distention Extremities: lower extremity edema, left leg with cast Cranial Nerves: PERRL, on sedation Skin: intact Skin Temp/Moisture Exam: Warm/Dry Current Medications: Current Medications Sig/Dylan Start time Last Medication Dose Route Stop Time Status Admin Acetaminophen 650 MG Q6P PRN 01/15 2030 AC PO Albuterol Sulfate 3 ML BID 01/16 1000 AC 01/17 INH 0914 Azithromycin 500 MG Q24H 01/16 2000 AC 01/16 Sodium Chloride 250 ML IV 2150 Budesonide 0.5 MG BID 01/17 1415 AC INH Budesonide/ 2 PUF BID 01/15 2200 DC 01/16 Formoterol Fumarate INH 2151 Bupropion HCl 300 MG QAM 01/16 1000 DC 01/16 PO 1047 Carvedilol 6.25 MG BID 01/15 2200 AC 01/17 PO 1249 Ceftriaxone Sodium 1,000 MG DAILY 01/16 1000 AC 01/17 IV 1034 Enoxaparin Sodium 40 MG DAILY 01/16 1000 AC 01/17 SC 1035 Fish Oil 1,050 MG TID 01/15 2200 DC 01/16 PO 2151 Furosemide 40 MG ONCE ONE 01/17 1015 DC 01/17 IV 01/17 1016 1034 Gabapentin 800 MG TID 01/15 2200 DC 01/16 PO 2151 Lipase/Protease/ 1 CAP WM 01/16 0800 DC 01/16 Amylase PO 1633 Lorazepam 100 MG Q24H 01/17 1415 DC Dextrose/Water 1,000 ML IV Lorazepam 100 MG Q10H 01/17 1400 AC 01/17 Dextrose/Water 1,000 ML IV 1435 Lorazepam 50 MG Q24H 01/17 0845 DC 01/17 Dextrose/Water 500 ML IV 0856 Lorazepam 2 MG Q6 01/16 1800 DC 01/16 PO 2359 Lorazepam 0 Q1P PRN 01/16 1315 AC 01/17 IV 0857 Losartan Potassium 100 MG DAILY 01/16 1000 AC 01/17 PO 1250 Magnesium Sulfate 1 GM ONCE ONE 01/16 1445 DC 01/16 Dextrose/Water 100 ML IV 01/16 1844 1813 Methylprednisolone 40 MG Q8 01/17 1400 AC 01/17 IV 1251 Methylprednisolone 125 MG ONCE ONE 01/17 0430 DC 01/17 IV 01/17 0431 0455 Montelukast Sodium 10 MG AT BEDTIME 01/15 2200 AC 01/16 PO 2151 Morphine Sulfate 2 MG Q6-PRN PRN 01/17 1030 AC IV Morphine Sulfate 4 MG Q12P PRN 01/15 2030 DC 01/17 IV 0756 Morphine Sulfate 30 MG Q6PRN PRN 01/15 2030 DC 01/16 PO 1107 Non-Formulary 0 SEE ADMIN CRITERIA 01/17 0930 DC Medication ANY Nystatin 1 ARMIDA TID 01/17 1000 AC 01/17 TOP 1515 Pantoprazole Sodium 40 MG DAILY 01/17 1000 AC 01/17 IV 1034 Prednisone 40 MG DAILY 01/16 1132 DC 01/16 PO 01/20 1001 1302 Propofol 1,000 MG Q24H 01/17 0945 DC N/A 1 UNIT IV Propofol 1,000 MG Q7H 01/17 0945 AC 01/17 N/A 1 UNIT IV 1653 Propofol 1,000 MG .STK-MED ONE 01/17 0905 DC IV 01/17 0906 Zolpidem Tartrate 10 MG QPM 01/15 2200 DC 01/16 PO 2150 Impression/Plan Impression/Problem List Impression: Patient is a 52 year old male past medical history of hypertension, ANDREW on CPAP at night presented to the ED with complains of worsening shortness of breath for the past 2 days. He reported using 2 pints of vodka/day Hospital Course: Mr Vitale was admitted with a diagnosis of acute hypoxic respiratory failure likely secondary tp viral bronchitis with possible pneumonia. He was started on oxygen 3L via NC, as well as IV Ceftriaxone and Azithromycin for pneumonia and a 5 day course of Prednisone 40mg. He was initially started on IV Ativan prn per JUAN DAVID. However, by yesterday evening, the patient was reported to be increasingly agitated and hence he was started on scheduled Ativan 2mg q6. Overnight patient was reported to be increasingly agitated requiring frequent doses of IV Ativan. His respiratory status deteriorated with his sats in 80s on 8L of oxygen. He was thus transferred to the ICU for possible intubation and IV Ativan drip to treat for alcohol withdrawal. Respiratory: Acute Hypoxic Respiratory Failure likely secondary to bronchitis and ? underlying pneumonia Patient had increased respiratory effort and was intubated for impending respiratory failure. Patient was placed on IV propofol - Respiratory therapy on board - ABG and CXR in AM - Continue to monitor q1h - Continue IV Antibiotics - IV Solumedrol Lung nodules Follow up CT Chest Infection: Bronchitis/Pneumonia - IV Ceftriaxone - IV Azithromycin - Continue to monitor vitals - Follow up sputum cultures - Trend WBC Cardiac History of HTN - continue coreg Fluid Overload: Patient was diuresed IV lasix x1 today. - continue to monitor I/O - continue daily weights Heme: Anemia Continue to monitor h/h Metabolic: Alcohol withdrawal - Continue IV Ativan drip - Monitor CIWA per protocol Ailementary: NPO due to intubation and sedation IV fluids Neurology: Sedated on propofol Ativan for alcohol withdrawal Nephrology: No issues DVT PPx: Lovenox Problem List: 1. Hypoxia Pain Ratin Tomorrow's Labs & Rationales: cbc bep abg Royal Martinez MD 01/17/18 1038: Impression/Plan Plan DVT/Prophylaxis: pharmacological Attending MD Review Statement Attending Sign Off Attending Cosign Statement: I have: examined this patient, reviewed [employer] EMR data, personally reviewd images, discussd w/resident/PA/BEVELING MACHINE OPERATOR, discussed mgmt plan w/tulio, discussed mgmt plan w/CM, discussed mgmt plan w/pt, agreed w/resident/PA/BEVELING MACHINE OPERATOR, amended to note. Other Findings: Impression 52 year old man * acute hypoxemic respiratory failure, likely to withdrawal symptoms requiring increased sedation, his lung opacities have a differential diagnosis of pneumonia, ARDS, fluid overload which all will be treated * substance dependence, etoh dependence Plan Respiratory -RR reduced -sedation so that patient is not breathing over the ventilator -assess abg in 1 hour and will reassess ventilator settings -solumedrol 40mg iv q8h ID -cont abx -f/u all cultures -influenza swab and pcr CVS -ECHO reviewed -trial of lasix -monitor hemodynamics -monitor ins/outs Heme -monitor cbc, coags, platelets Metabolic -ins/outs -monitor electrolytes -mvi, folate, thiamine -check amylase, lipase -cpk Alimentary -NPO for now Neuro -sedate to ciwa and that patient is not overbreathing the ventilator then will titrate -currently on propofol and ativan -check lactate DVT prophylaxis at all times TTS 50 min
--- NOTE | 2018-01-17 09:32 | RADIOLOGY REPORT ---
XR PORTABLE CHEST CLINICAL INFORMATION: Intubated. COMPARISON: Chest x-ray 01/17/2018. TECHNIQUE: Portable frontal view of the chest was obtained. FINDINGS: Technically limited study. Endotracheal tube tip is approximately 4 cm above the flori. Enteric tube courses below the diaphragm with its tip projecting over the stomach. Low lung volumes. Worsening airspace opacity within the right midlung and at the right lung base. The left lung remains clear. No definite pneumothorax. Cardiac silhouette is enlarged and unchanged. Osseous structures are stable. IMPRESSION: Endotracheal tube tip is approximately 4 cm above the flori. Enteric tube tip is within the stomach. Worsening airspace opacity within the right midlung and at the right lung base. Stable enlargement of the cardiac silhouette.
[2018-01-18] VITALS (7 sets, daily range): BP systolic 133–156; BP diastolic 69–90
[2018-01-18 05:35] LABS: ABSOLUTE BASOPHIL COUNT 0 /CUMM (0.0-0.2); ABSOLUTE EOSINOPHIL COUNT 0 /CUMM (0.0-0.7); ABSOLUTE GRANULOCYTE CT 9.2 /CUMM (1.4-6.5); ABSOLUTE LYMPH COUNT 0.9 /CUMM (1.2-3.4); ABSOLUTE MONOCYTE COUNT 0.5 /CUMM (0.10-0.60); BASOPHIL % 0.4 % (0.0-2.0); EOSINOPHIL % 0.1 % (0-5); GRANULOCYTE % 86.1 % (42.2-75.2); HEMATOCRIT 28.8 % (42-52); MEAN CORPUSCULAR HGB CONC 32.4 G/DL (33.0-37.0); MEAN CORPUSCULAR VOLUME 86.4 FL (80.0-94.0); MEAN PLATELET VOLUME 7.2 FL (7.4-10.4); PLATELET COUNT 313 /CUMM (130-400); RBC DISTRIBUTION WIDTH 14.4 % (11.5-14.5); RED BLOOD CELL CT 3.34 /CUMM (4.70-6.10); WHITE BLOOD CELL COUNT 10.7 /CUMM (4.8-10.8)
--- NOTE | 2018-01-18 06:38 | RADIOLOGY REPORT ---
EXAMINATION: XR PORTABLE CHEST CLINICAL INFORMATION: Intubation. COMPARISON: Chest x-ray January 17, 2018 TECHNIQUE: Portable frontal view of the chest was obtained. 5:59 AM FINDINGS: Endotracheal tube catheter about 2.5 cm above the flori. Nasogastric tube catheter passes below the diaphragm into the stomach the catheter tip is not visualized. There is low lung volume. Prominence of the central hilar vessels and increased lung markings is accentuated by the low inspiratory effort. There is increased density in the retrocardiac area and at the right lung base due to probable basilar atelectasis present. IMPRESSION: 1. Endotracheal tube catheter about 2.5 cm above flori. 2. Nasogastric tube in stomach. 3. Low lung volume with prominence of the central hilar vessels and probable bibasilar atelectasis.
--- NOTE | 2018-01-18 07:20 | PN- Resident CRCU ---
Jase KU,Jayne 01/18/18 0717: Subjective HPI/CRCU Issues: Overnight issues: Patient is sedated on mechanical ventilation. Overnight patient became agitated, fighting the vent. Propofol was increased. Vitals: MAXIMUM TEMPERATURE: 98.6, heart rate 60s to 100, sinus, respiration rate 40 is now down to 20s, blood pressure 199/116 now down to 137/81, 92-95% on mechanical ventilation on tidal volume of 500, O2 of 40%, respiration rate of 20, PEEP of 5 Labs: WBC: 10.7 down from 17.1, H&H 9.4 and 28.8, platelets 313 Sodium 139, potassium 3.8, chloride 100, bicarbonate 27, anion gap 12, BUN 16, creatinine 0.6, calcium 8.8, phosphorus 3.5, magnesium 1.8, LFTs within normal limits, albumin 3.3 Electrolytes repleted this AM Imaging: Chest x-ray showing endotracheal tube 2.5 cm above the flori, NG tube and stomach, low lung volumes with prominence of the central hilar vessels and probable bibasilar atelectasis Objective Vital Signs & I&O Last 8 Hrs of Vitals and I&O: Vital Signs Date Time Temp Pulse Resp B/P B/P Pulse O2 O2 Flow FiO2 Mean Ox Delivery Rate 01/18 1620 40 01/18 1600 94 Ventilator 40% 01/18 1600 97.6 56 22 140/88 94 Ventilator 40% 01/18 1338 40 01/18 1200 94 Ventilator 40% 01/18 1027 40 Intake & Output 01/18 1600 Intake Total 1479 Output Total 3100 Balance -1621 Intake, IV 1359 Intake, Tube 120 Irrigant Number 0 Bowel Movements Output, Urine 3100 Patient 275 lb Weight Intake & Output 01/18 1600 Intake Total 1479 Output Total 3100 Balance -1621 Intake, IV 1359 Intake, Tube 120 Irrigant Number 0 Bowel Movements Output, Urine 3100 Patient 275 lb Weight Exam General Appearance: well developed/nourished, sedated, intubated Head: atraumatic Respiratory: crackles, wheezing Cardiovascular: regular rate/rhythm Gastrointestinal: normal bowel sounds, soft, non-tender Extremities: lower extermity edema, left leg with cast IV Drips IV Drips: IV Ativan IV Propofol Current Medications: Current Medications Sig/Dylan Start time Last Medication Dose Route Stop Time Status Admin Acetaminophen 650 MG Q6P PRN 01/15 2030 AC PO Albuterol Sulfate 3 ML BID 01/16 1000 AC 01/18 INH 0834 Azithromycin 500 MG Q24H 01/16 2000 AC 01/17 Sodium Chloride 250 ML IV 2022 Budesonide 0.5 MG BID 01/17 1415 AC 01/18 INH 0835 Carvedilol 6.25 MG BID 01/15 2200 AC 01/18 PO 1045 Ceftriaxone Sodium 1,000 MG DAILY 01/16 1000 AC 01/18 IV 1046 Cyanocobalamin/ 1 BAG DAILY 01/17 1851 DC 01/18 Thiamine/Pyridoxine IV 1047 Dextrose/Water 1,000 ML Enoxaparin Sodium 40 MG DAILY 01/16 1000 AC 01/18 SC 1045 Folic Acid 1 MG DAILY 01/19 1000 AC PO Furosemide 40 MG ONCE ONE 01/18 1000 DC 01/18 IV 01/18 1001 1053 Lorazepam 100 MG Q10H 01/17 1400 AC 01/18 Dextrose/Water 1,000 ML IV 1045 Lorazepam 0 Q1P PRN 01/16 1315 AC 01/17 IV 0857 Losartan Potassium 100 MG DAILY 01/16 1000 AC 01/18 PO 1045 Magnesium Chloride 64 MG DAILY 01/18 1000 CAN PO Magnesium Oxide 400 MG ONE ONE 01/18 0815 DC 01/18 PO 01/18 0816 0830 Methylprednisolone 40 MG Q8 01/17 1400 AC 01/18 IV 1427 Montelukast Sodium 10 MG AT BEDTIME 01/15 2200 AC 01/17 PO 2249 Morphine Sulfate 2 MG Q6-PRN PRN 01/17 1030 AC IV Multivitamins 1 TAB DAILY 01/19 1000 AC PO Nystatin 1 ARMIDA TID 01/17 1000 AC 01/18 TOP 1558 Pantoprazole Sodium 40 MG DAILY 01/17 1000 AC 01/18 IV 1046 Phosphate 250 MG ONCE ONE 01/18 0745 DC 01/18 PO 01/18 0746 0830 Potassium Chloride 20 MEQ ONCE ONE 01/18 0745 DC 01/18 PO 01/18 0746 0830 Propofol 1,000 MG Q7H 01/17 0945 AC 01/18 N/A 1 UNIT IV 1427 Thiamine HCl 100 MG DAILY 01/19 1000 AC PO Impression/Plan Impression/Problem List Impression: Patient is a 52 year old male past medical history of hypertension, ANDREW on CPAP at night presented to the ED with complains of worsening shortness of breath for the past 2 days. He reported using 2 pints of vodka/day Hospital Course: Mr Vitale was admitted with a diagnosis of acute hypoxic respiratory failure likely secondary tp viral bronchitis with possible pneumonia. He was started on oxygen 3L via NC, as well as IV Ceftriaxone and Azithromycin for pneumonia and a 5 day course of Prednisone 40mg. He was initially started on IV Ativan prn per CIWA. However, by yesterday evening, the patient was reported to be increasingly agitated and hence he was started on scheduled Ativan 2mg q6. On 01/18 early monring at ~ 5AM, patient was reported to be increasingly agitated requiring frequent doses of IV Ativan. His respiratory status deteriorated with his sats in 80s on 8L of oxygen. He was thus transferred to the ICU for possible intubation and IV Ativan drip to treat for alcohol withdrawal. Respiratory: Acute Hypoxic Respiratory Failure likely secondary to bronchitis and ? underlying pneumonia Patient had increased respiratory effort and was intubated for impending respiratory failure. Patient was placed on IV propofol which was increased overnight due to agitation. Patient's ABG today shows respiratory alkalosis. Respiratory rate decreased today. Will try to wean down sedation. - Respiratory therapy on board - ABG and CXR in AM - Continue to monitor q1h - Continue IV Antibiotics - IV Solumedrol Lung nodules Follow up CT Chest outpatient Infection: Bronchitis/Pneumonia Sputum culture today is growing Staph Aureus and patient is positive for MRSA in the nares. However as patient remains afebrile with resolving leukocytosis on day 4 of current IV antibiotics will not broaden coverage at this time. - IV Ceftriaxone - IV Azithromycin - Continue to monitor vitals - Follow up sputum cultures sensitivities - Trend WBC Cardiac History of HTN - continue coreg Diastolic Heart Failure Patient's CXR today appears to have worsened from day prior. Patient is currently fluid balance positive. Patient given 1 dose of IV Lasix 40mg. - continue to monitor I/O - continue daily weights Heme: Anemia Continue to monitor h/h Metabolic: Alcohol withdrawal - Continue IV Ativan drip - Monitor CIWA per protocol - Thiamine, Folic acid, MVM Ailementary: NPO due to intubation and sedation IV fluids Electrolytes repleted Nutrition consulted today Will start tube feeds pending nutrition assessment Neurology: Sedated on propofol and IV ativan Nephrology: None DVT PPx: Lovenox Problem List: 1. Hypoxia 2. Alcohol withdrawal Pain Ratin Tomorrow's Labs & Rationales: cbc bep abg Plan DVT/Prophylaxis: mechanical, pharmacological Royal Martinez MD 01/18/18 1219: Attending MD Review Statement Attending Sign Off Attending Cosign Statement: I have: examined this patient, reviewed aval EMR data, personally reviewd images, discussd w/resident/PA/PROCESS ASSISTANT, discussed mgmt plan w/tulio, discussed mgmt plan w/CM, discussed mgmt plan w/pt, agreed w/resident/PA/PROCESS ASSISTANT, amended to note. Other Findings: Impression 52 year old man * acute hypoxemic respiratory failure, likely to withdrawal symptoms requiring increased sedation, his lung opacities have a differential diagnosis of pneumonia, ARDS, fluid overload which all will be treated * substance dependence, etoh dependence Plan Respiratory -RR reduce to 16 -sedation so that patient is not breathing over the ventilator -continue solumedrol 40mg iv q8h ID -cont abx -f/u all cultures CVS -ECHO reviewed -lasix -monitor hemodynamics -monitor ins/outs Heme -monitor cbc, coags, platelets Metabolic -ins/outs -monitor electrolytes -mvi, folate, thiamine Alimentary -can consider tube feeds in am Neuro -ciwa -currently on propofol and ativan, titrate propofol to off DVT prophylaxis at all times TTS 35 min
[2018-01-19] VITALS (8 sets, daily range): BP systolic 140–158; BP diastolic 73–90
[2018-01-19 04:44] LABS: ABSOLUTE BASOPHIL COUNT 0 /CUMM (0.0-0.2); ABSOLUTE EOSINOPHIL COUNT 0 /CUMM (0.0-0.7); ABSOLUTE GRANULOCYTE CT 10.1 /CUMM (1.4-6.5); ABSOLUTE LYMPH COUNT 1.1 /CUMM (1.2-3.4); ABSOLUTE MONOCYTE COUNT 0.6 /CUMM (0.10-0.60); BASOPHIL % 0.2 % (0.0-2.0); EOSINOPHIL % 0 % (0-5); GRANULOCYTE % 85.4 % (42.2-75.2); MEAN CORPUSCULAR HGB 28.1 PG (27.0-31.0); MEAN CORPUSCULAR HGB CONC 32.5 G/DL (33.0-37.0); MEAN CORPUSCULAR VOLUME 86.6 FL (80.0-94.0); PLATELET COUNT 332 /CUMM (130-400); RBC DISTRIBUTION WIDTH 14.5 % (11.5-14.5); RED BLOOD CELL CT 3.47 /CUMM (4.70-6.10); WHITE BLOOD CELL COUNT 11.8 /CUMM (4.8-10.8)
--- NOTE | 2018-01-19 06:35 | RADIOLOGY REPORT ---
EXAMINATION: XR PORTABLE CHEST CLINICAL INFORMATION: Intubation. COMPARISON: Chest x-ray January 18, 2018 TECHNIQUE: Portable frontal view of the chest was obtained. 6:05 AM FINDINGS: Patient's rotated to left. Endotracheal tube catheter in position about 4 cm above flori. Nasogastric tube tip in stomach. There is continued mild central pulmonary vascular prominence accentuated by the low inspiration. There is continued density the left lung base of infiltrate and/or atelectasis. There is improved aeration at the right lung base since prior chest x-ray. IMPRESSION: 1. Endotracheal tube 4 cm above flori. 2. Nasogastric tube in stomach. 3. Low lung volumes. Improved aeration of right lung. Persistent dense left lung base
--- NOTE | 2018-01-19 07:30 | PN- Resident CRCU ---
Jase KU,Jayne 01/19/18 0730: Subjective HPI/CRCU Issues: Overnight issues: Patient was fighting the vent overnight and propranolol was increased. Patient today remains sedated on propranolol of 20 and Ativan 12 Vitals: MAXIMUM TEMPERATURE 98.4, heart rate 60s to 70s, sinus rhythm, respiration rate 16-28, blood pressure 140s to 150s over 70s to 90s, saturating between 93-96% on mechanical ventilation at tidal volume of 500, FiO2 of 40, PEEP of 5 Total intake 7837, total output 9400 Labs: WBC 11.8 with 79 segmented neutrophils and 2 bands, H&H 9.7 and 30, platelet count 332 Sodium 140, potassium 3.8, chloride 101, bicarbonate 26, BUN 16, creatinine 0.6, glucose 250, calcium 8.9, phosphorus 3.8, magnesium 1.8, LFTs within normal limits, albumin 3.1 Microbiology: Respiratory culture from January 17 growing yeast and MRSA Upper respiratory nares surveillance culture from January 17 growing MRSA Chest x-ray: No tracheal to 4 cm above flori, NG tube stomach, low lung volumes , improved aeration of right lung, persistent dense left lung base ABG: PH 7.47, PCO2 35, PO2 76, bicarbonate 25, ABG O2 saturation 95, on vent settings of FiO2 40%, respiratory rate of 16, PEEP of 5, tidal volume 500 Objective Vital Signs & I&O Last 8 Hrs of Vitals and I&O: Vital Signs Date Time Temp Pulse Resp B/P B/P Pulse O2 O2 Flow FiO2 Mean Ox Delivery Rate 01/19 1200 93 Ventilator 40% 01/19 0848 40 01/19 0822 98.2 64 20 140/86 94 Ventilator 40% 01/19 0800 96 Ventilator 40% 01/19 0600 61 21 140/73 01/19 0542 40 01/19 0402 40 01/19 0400 93 Ventilator 40% 01/19 0047 40 01/19 0000 98.7 66 27 150/90 01/19 0000 95 Ventilator 40% 01/18 2300 98.7 65 16 150/90 96 Ventilator 40% 01/18 2232 40 01/18 2102 74 150/82 01/19 2000 40 01/19 2000 97.7 66 24 156/84 01/19 2000 96 Ventilator 40% 01/18 1620 40 01/18 1600 94 Ventilator 40% 01/18 1600 97.6 56 22 140/88 94 Ventilator 40% 01/18 1338 40 Intake & Output 01/19 1600 01/19 0800 01/19 0000 Intake Total 1222 1191 Output Total 1000 1075 Balance 222 116 Intake, IV 1117 1191 Intake, Oral 0 0 Intake, Tube 45 Feeding Intake, Tube 60 Irrigant Number 2 Bowel Movements Output, 100 Gastric Drainage Output, Urine 1000 975 Exam General Appearance: well developed/nourished, sedated, intubated, obese Head: atraumatic Respiratory: normal breath sounds, no respiratory distress, lungs clear Cardiovascular: regular rate/rhythm Gastrointestinal: normal bowel sounds, soft, non-tender Extremities: no edema, right leg with cast Cranial Nerves: PERRL IV Drips IV Drips: IV Ativan IV Propofol Current Medications: Current Medications Sig/Dylan Start time Last Medication Dose Route Stop Time Status Admin Acetaminophen 650 MG Q6P PRN 01/15 2030 AC PO Albuterol Sulfate 3 ML BID 01/16 1000 AC 01/19 INH 0808 Azithromycin 500 MG Q24H 01/16 2000 AC 01/18 Sodium Chloride 250 ML IV 2003 Budesonide 0.5 MG BID 01/17 1415 AC 01/19 INH 0808 Carvedilol 6.25 MG BID 01/15 2200 AC 01/19 PO 0936 Ceftriaxone Sodium 1,000 MG DAILY 01/16 1000 AC 01/19 IV 0936 Cyanocobalamin/ 1 BAG DAILY 01/17 1851 DC 01/18 Thiamine/Pyridoxine IV 1047 Dextrose/Water 1,000 ML Enoxaparin Sodium 40 MG DAILY 01/16 1000 AC 01/19 SC 0936 Folic Acid 1 MG DAILY 01/19 1000 AC 01/19 PO 0936 Insulin Aspart 3 UNITS .STK-MED ONE 01/19 0002 DC SC 01/19 0003 Insulin Aspart 0 Q6 01/18 2359 AC 01/19 SC 1220 Insulin Human Regular 3 UNITS .STK-MED ONE 01/18 2359 DC IV 01/19 0000 Lorazepam 100 MG Q7H 01/19 1400 AC Dextrose/Water 1,000 ML IV Lorazepam 100 MG Q10H 01/17 1400 AC 01/19 Dextrose/Water 1,000 ML IV 01/19 1359 0550 Lorazepam 0 Q1P PRN 01/16 1315 AC 01/17 IV 0857 Losartan Potassium 100 MG DAILY 01/16 1000 AC 01/19 PO 0936 Magnesium Oxide 400 MG ONE ONE 01/19 0545 DC 01/19 PO 01/19 0546 0550 Methylprednisolone 40 MG Q8 01/17 1400 AC 01/19 IV 0508 Montelukast Sodium 10 MG AT BEDTIME 01/15 2200 AC 01/18 PO 2102 Morphine Sulfate 2 MG Q6-PRN PRN 01/17 1030 AC 01/19 IV 1155 Multivitamins 1 TAB DAILY 01/19 1000 AC 01/19 PO 0936 Nystatin 1 ARMIDA TID 01/17 1000 AC 01/19 TOP 0937 Pantoprazole Sodium 40 MG DAILY 01/17 1000 AC 01/19 IV 0936 Potassium Chloride 40 MEQ ONCE ONE 01/19 0545 DC 01/19 PO 01/19 0546 0550 Propofol 1,000 MG Q12H 01/19 2200 AC N/A 1 UNIT IV Propofol 1,000 MG Q7H 01/17 0945 AC 01/19 N/A 1 UNIT IV 01/19 2159 1003 Thiamine HCl 100 MG DAILY 01/19 1000 AC 01/19 PO 0936 Impression/Plan Impression/Problem List Impression: Patient is a 52 year old male past medical history of hypertension, ANDREW on CPAP at night presented to the ED with complains of worsening shortness of breath for the past 2 days. He reported using 2 pints of vodka/day Hospital Course: Mr Vitale was admitted with a diagnosis of acute hypoxic respiratory failure likely secondary tp viral bronchitis with possible pneumonia. He was started on oxygen 3L via NC, as well as IV Ceftriaxone and Azithromycin for pneumonia and a 5 day course of Prednisone 40mg. He was initially started on IV Ativan prn per JUAN DAVID. However, by yesterday evening, the patient was reported to be increasingly agitated and hence he was started on scheduled Ativan 2mg q6. On 01/18 early at ~ 5AM, patient was reported to be increasingly agitated requiring frequent doses of IV Ativan. His respiratory status deteriorated with his sats in 80s on 8L of oxygen. He was thus transferred to the ICU for possible intubation and IV Ativan drip to treat for alcohol withdrawal. Respiratory: Acute Hypoxic Respiratory Failure likely secondary to bronchitis and ? underlying pneumonia Patient had increased respiratory effort and was intubated for impending respiratory failure. Patient was placed on IV propofol which was increased overnight due to agitation. Patient's ABG today continues to show respiratory alkalosis. Respiratory rate was decreased yesterday to 16. Will decrease tidal volume to 450 today. - Respiratory therapy on board - ABG and CXR in AM - Continue to monitor q1h - Continue IV Antibiotics - IV Solumedrol decreased to 40 q12 Lung nodules Follow up CT Chest outpatient Infection: Bronchitis/Pneumonia Sputum culture today is growing Staph Aureus and patient is positive for MRSA in the nares. However as patient remains afebrile with resolving leukocytosis on day 4 of current IV antibiotics will not broaden coverage at this time. - IV Ceftriaxone - IV Azithromycin - Continue to monitor vitals - Trend WBC Cardiac Run of VTACH - 8 beats - EKG was done, showed no change from previous EKG. Troponin <0.01. - electrolytes which were borderline - K+ of 3.8, Mg of 1.8 were repleted - discussed with cardiology, Dr. [place]. Per cardiology if repeated episodes, coreg can be increased. History of HTN - continue coreg Diastolic Heart Failure Patient's CXR today appears to have improved from day prior. Patient is currently fluid balance negative. - continue to monitor I/O - continue daily weights - avoid excessive fluids Heme: Anemia Continue to monitor h/h Metabolic: Alcohol withdrawal - Continue IV Ativan drip - Monitor CIWA per protocol - Thiamine, Folic acid, MVM Ailementary: NPO due to intubation and sedation IV fluids Electrolytes repleted Continue tube feeds Neurology: Sedated on propofol and IV ativan Continue to wean off propofol. IV ativan can be increased if needed. Nephrology: None DVT PPx: Lovenox Problem List: 1. Hypoxia 2. Alcohol withdrawal 3. Acute bronchitis 4. V-tach Pain Ratin Tomorrow's Labs & Rationales: cbc bep abg Plan DVT/Prophylaxis: mechanical, pharmacological Royal Martinez MD 01/19/18 1115: Attending MD Review Statement Attending Sign Off Attending Cosign Statement: I have: examined this patient, reviewed [facility] EMR data, personally reviewd images, discussd w/resident/PA/[employer], discussed mgmt plan w/tluio, discussed mgmt plan w/CM, discussed mgmt plan w/pt, agreed w/resident/PA/[employer], amended to note. Other Findings: Impression 52 year old man * acute hypoxemic respiratory failure, likely to withdrawal symptoms requiring increased sedation, his lung opacities have a differential diagnosis of pneumonia, ARDS, fluid overload which all will be treated * substance dependence, etoh dependence Plan Respiratory -TV reduce to 450 -reduce solumedrol 40mg iv q12h ID -cont abx -f/u all cultures CVS -ECHO reviewed -lasix -monitor hemodynamics -monitor ins/outs Heme -monitor cbc, coags, platelets Metabolic -ins/outs -monitor electrolytes -mvi, folate, thiamine Alimentary -tube feeds Neuro -ciwa -currently on propofol and ativan, titrate propofol to off DVT prophylaxis at all times TTS 35 min
--- NOTE | 2018-01-19 13:38 | Cons- Cardiology ---
General Information and HPI Consulting Request Date of Consult: 01/19/18 Requested By: William Shafer MD Reason for Consult: Non sustained VT; Respiratory failure Source of Information: old records Exam Limitations: clinical condition History of Present Illness: The patient is a 52-year-old male. His past history is remarkable for hypertension. He was seen by me in the office last July for evaluation of hypertension. At that time, the patient was on losartan 100 mg day, carvedilol 3.125 mg twice a day, amlodipine 5 mg a day, Lasix, and atorvastatin. The patient was admitted to the hospital immediately emergency room a few days ago with complaints of worsening shortness of breath. On arrival to the emergency room, his oxygen saturations were in the low 80s. No other obvious cardiac basilar symptoms are noted at that time. The patient was admitted to the hospital for further evaluation and treatment. After admission, the patient was ultimately transferred to the ICU due to increasing oxygen requirements and hypoxia. He was ultimately intubated. Currently, the patient seemed dynamically stable. Earlier today, the patient had a 7 beat run of wide-complex tachycardia. As noted, the patient also has history of alcohol use/abuse. Allergies/Medications Allergies: Coded Allergies: Penicillins (UNKNOWN 01/15/18) Home Med List: Bupropion HCl (Bupropion XL) 300 MG TAB.ER.24H 1 TAB PO QAM MENTAL HEALTH ( Reported) Carvedilol 6.25 MG TABLET 1 TAB PO BID HEART (Reported) Dextroamphetamine/Amphetamine (Dextroamp-Amphetamin 30 MG Tab) 30 MG TABLET 1 TAB PO BID MENTAL HEALTH (Reported) Gabapentin 400 MG CAPSULE 2 CAP PO TID UNKNOWN (Reported) Ibuprofen 800 MG TABLET 1 TAB PO TID PRN pain Lipase/Protease/Amylase (Creon Dr 24,000 Units Capsule) 24-76-120K CAPSULE.DR 3 TAB PO TID UNKNOWN (Reported) Losartan Potassium 100 MG TABLET 1 TAB PO DAILY HEART (Reported) Methadone HCl 10 MG/ML ORAL.CONC 30 MG PO DAILY MAINTENCE (Reported) [place]-3 Acid Ethyl Esters 1 GRAM CAPSULE 1 CAP PO TID SUPPLEMENT (Reported) Testosterone (Androgel) 20.25/1.25 GEL.MD.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 40.5 TOP DAILY UNKNOWN ( Reported) Zolpidem Tartrate 10 MG TABLET 1 TAB PO QPM SLEEP (Reported) Current Medications: Current Medications Sig/Dylan Start time Last Medication Dose Route Stop Time Status Admin Acetaminophen 650 MG Q6P PRN 01/15 2030 AC PO Albuterol Sulfate 3 ML BID 01/16 1000 AC 01/19 INH 0808 Azithromycin 500 MG Q24H 01/16 2000 AC 01/18 Sodium Chloride 250 ML IV 2002 Budesonide 0.5 MG BID 01/17 1415 AC 01/19 INH 0808 Carvedilol 6.25 MG BID 01/15 2200 AC 01/19 PO 0936 Ceftriaxone Sodium 1,000 MG DAILY 01/16 1000 AC 01/19 IV 0936 Cyanocobalamin/ 1 BAG DAILY 01/17 1851 DC 01/18 Thiamine/Pyridoxine IV 1047 Dextrose/Water 1,000 ML Enoxaparin Sodium 40 MG DAILY 01/16 1000 AC 01/19 SC 0936 Folic Acid 1 MG DAILY 01/19 1000 AC 01/19 PO 0936 Insulin Aspart 3 UNITS .STK-MED ONE 01/19 0002 DC SC 01/19 0003 Insulin Aspart 0 Q6 01/18 2359 AC 01/19 SC 1220 Insulin Human Regular 3 UNITS .STK-MED ONE 01/18 2359 DC IV 01/19 0000 Lorazepam 100 MG Q7H 01/19 1400 AC 01/19 Dextrose/Water 1,000 ML IV 1323 Lorazepam 100 MG Q10H 01/17 1400 AC 01/19 Dextrose/Water 1,000 ML IV 01/19 1359 0550 Lorazepam 0 Q1P PRN 01/16 1315 AC 01/17 IV 0857 Losartan Potassium 100 MG DAILY 01/16 1000 AC 01/19 PO 0936 Magnesium Oxide 400 MG ONE ONE 01/19 1330 DC 01/19 PO 01/19 1331 1323 Magnesium Oxide 400 MG ONE ONE 01/19 0545 DC 01/19 PO 01/19 0546 0550 Methylprednisolone 40 MG Q12 01/19 2200 AC IV Methylprednisolone 40 MG Q8 01/17 1400 DC 01/19 IV 0508 Montelukast Sodium 10 MG AT BEDTIME 01/15 2200 AC 01/18 PO 2102 Morphine Sulfate 2 MG Q6-PRN PRN 01/17 1030 AC 01/19 IV 1155 Multivitamins 1 TAB DAILY 01/19 1000 AC 01/19 PO 0936 Nystatin 1 ARMIDA TID 01/17 1000 AC 01/19 TOP 0937 Pantoprazole Sodium 40 MG DAILY 01/17 1000 AC 01/19 IV 0936 Phosphate 250 MG 1330 01/19 1330 DC PO 01/19 1331 Potassium Chloride 20 MEQ ONCE ONE 01/19 1315 DC 01/19 PO 01/19 1316 1323 Potassium Chloride 40 MEQ ONCE ONE 01/19 0545 DC 01/19 PO 01/19 0546 0550 Propofol 1,000 MG Q12H 01/19 2200 AC N/A 1 UNIT IV Propofol 1,000 MG Q7H 01/17 0945 AC 01/19 N/A 1 UNIT IV 01/19 2159 1003 Thiamine HCl 100 MG DAILY 01/19 1000 AC 01/19 PO 0936 Past History Travel History Traveled to [place] past 21 day No Medical History Neurological: SEIZURE x 1 S/P HEAD INJ EENT: NONE Cardiovascular: hypertension Respiratory: CHRONIC BRONCHITIS SINCE Gastrointestinal: umbilical hernia Hepatic: NONE Renal: NONE Musculoskeletal: disk herniation, COMPOUND FX L ANKLE BONE SPURS IN NECK/BACK Psychiatric: NONE Endocrine: NONE Blood Disorders: NONE Cancer(s): NONE 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 Surgical History Surgical History: 1 Family History Relations & Conditions If Any: Relation not specified for: *No pertinent family history Psychosocial History Services at Home: None Smoking Status: Former Smoker ETOH Use: occasional use Illicit Drug Use: denies illicit drug use Exam & Diagnostic Data Vital Signs and I&O Vital Signs Date Time Temp Pulse Resp B/P B/P Pulse O2 O2 Flow FiO2 Mean Ox Delivery Rate 01/19 1200 93 Ventilator 40% 01/19 0848 40 01/19 0822 98.2 64 20 140/86 94 Ventilator 40% 01/19 0800 96 Ventilator 40% 01/19 0600 61 21 140/73 01/19 0542 40 01/19 0402 40 01/19 0400 93 Ventilator 40% 01/19 0047 40 01/19 0000 98.7 66 27 150/90 01/19 0000 95 Ventilator 40% 01/18 2300 98.7 65 16 150/90 96 Ventilator 40% 01/18 2232 40 01/18 2102 74 150/82 01/18 2000 40 01/19 2000 97.7 66 24 156/84 01/19 2000 96 Ventilator 40% 01/18 1620 40 01/18 1600 94 Ventilator 40% 01/18 1600 97.6 56 22 140/88 94 Ventilator 40% Intake & Output 03/01/19 0800 01/19 0000 01/18 1600 01/18 0800 01/18 0000 Intake Total 1222 1191 1479 1712 1530 Output Total 1000 1075 3100 1600 350 Balance 222 116 -7097 219 9160 Intake, IV 1117 1191 1359 1712 1430 Intake, Oral 0 0 Intake, Other 0 100 Intake, Tube 45 0 Feeding Intake, Tube 60 120 Irrigant Number 2 0 0 0 Bowel Movements Output, 100 100 Gastric Drainage Output, Urine 6248 850 4429 1500 350 Patient 275 lb 275 lb Weight Physical Exam: General Appearance intubated and sedated in the ICU Skin normal HEENT Atraumatic Cardiovascular regular S1, S2, no audible murmurs Lungs scant bilateral rhonchi Abdomen Soft, No Tenderness Neurological patient sedated, minimally arousable, grossly nonfocal Extremities RLE edema, Left leg in cast Labs/Maurilio Results: Laboratory Tests 01/19 01/19 0545 0403 Blood Gas pH (7.35 - 7.45 PH) 7.47 H pCO2 (35 - 45 TORR) 35 pO2 (80 - 100 TORR) 76 L HCO3 (21 - 28 MEQ/L) 25 ABG O2 Sat (Measured) (>96.0 %) 95.0 L P-50 (Temp Corrected) N Carboxyhemoglobin (1.5 - 5.0 %) 0.3 L O2 Concentration % .40 Respiration Rate (BPM) 16 O2 Delivery Method VENT Vent Mode A/C Expiratory Pressure (CMH2O/P) 5 Tidal Volume (CC) 500 Chemistry Sodium (137 - 145 mmol/L) 140 Potassium (3.5 - 5.1 mmol/L) 3.8 Chloride (98 - 107 mmol/L) 101 Carbon Dioxide (22 - 30 mmol/L) 26 Anion Gap (5 - 16) 13 BUN (9 - 20 mg/dL) 16 Creatinine (0.7 - 1.2 mg/dL) 0.6 L Estimated GFR (>60 ml/min) > 60 Glucose (65 - 99 mg/dL) 250 H Calcium (8.4 - 10.2 mg/dL) 8.9 Phosphorus (2.5 - 4.5 mg/dL) 3.8 Magnesium (1.6 - 2.3 mg/dL) 1.8 Total Bilirubin (0.2 - 1.3 mg/dL) 0.4 AST (17 - 59 U/L) 16 L ALT (21 - 72 U/L) 34 Albumin (3.5 - 5.0 g/dL) 3.1 L Hematology CBC w Diff MAN DIFF ORDERED WBC (4.8 - 10.8 /CUMM) 11.8 H RBC (4.70 - 6.10 /CUMM) 3.47 L Hgb (14.0 - 18.0 G/DL) 9.7 L Hct (42 - 52 %) 30.0 L MCV (80.0 - 94.0 FL) 86.6 MCH (27.0 - 31.0 PG) 28.1 MCHC (33.0 - 37.0 G/DL) 32.5 L RDW (11.5 - 14.5 %) 14.5 Plt Count (130 - 400 /CUMM) 332 MPV (7.4 - 10.4 FL) 7.0 L Gran % (42.2 - 75.2 %) 85.4 H Lymphocytes % (20.5 - 51.1 %) 9.3 L Monocytes % (1.7 - 9.3 %) 5.1 Eosinophils % (0 - 5 %) 0 Basophils % (0.0 - 2.0 %) 0.2 Absolute Granulocytes (1.4 - 6.5 /CUMM) 10.1 H Segmented Neutrophils (42.2 - 75.2 %) 79 H Band Neutrophils (0.0 - 5.0 %) 2 Absolute Lymphocytes (1.2 - 3.4 /CUMM) 1.1 L Lymphocytes (20.5 - 51.1 %) 16 L Monocytes (1.7 - 9.3 %) 3 Absolute Monocytes (0.10 - 0.60 /CUMM) 0.6 Absolute Eosinophils (0.0 - 0.7 /CUMM) 0 Absolute Basophils (0.0 - 0.2 /CUMM) 0 Platelet Estimate (ADEQUATE) ADEQUATE Polychromasia 1+ Poikilocytosis 1+ Anisocytosis 1+ Elliptocytes FEW Miscellaneous Phlebotomy Draw Site RIGHT RADIAL 01/18 01/18 0545 0500 Blood Gas pH (7.35 - 7.45 PH) 7.46 H pCO2 (35 - 45 TORR) 33 L pO2 (80 - 100 TORR) 67 L HCO3 (21 - 28 MEQ/L) 23 ABG O2 Sat (Measured) (>96.0 %) 93.0 L P-50 (Temp Corrected) N Carboxyhemoglobin (1.5 - 5.0 %) 0.4 L O2 Concentration % .40 Respiration Rate (BPM) 20 O2 Delivery Method VENT Vent Mode A/C Expiratory Pressure (CMH2O/P) 5 Tidal Volume (CC) 500 Chemistry Sodium Cancelled Potassium Cancelled Chloride Cancelled Carbon Dioxide Cancelled Anion Gap Cancelled BUN Cancelled Creatinine Cancelled Glucose Cancelled Calcium Cancelled Phosphorus Cancelled Magnesium Cancelled Total Bilirubin Cancelled AST Cancelled ALT Cancelled Albumin Cancelled Miscellaneous Phlebotomy Draw Site RIGHT RADIAL 01/18 2519 Chemistry Sodium (137 - 145 mmol/L) 139 Potassium (3.5 - 5.1 mmol/L) 3.8 Chloride (98 - 107 mmol/L) 100 Carbon Dioxide (22 - 30 mmol/L) 27 Anion Gap (5 - 16) 12 BUN (9 - 20 mg/dL) 16 Creatinine (0.7 - 1.2 mg/dL) 0.6 L Estimated GFR (>60 ml/min) > 60 Glucose (65 - 99 mg/dL) 268 H Calcium (8.4 - 10.2 mg/dL) 8.8 Phosphorus (2.5 - 4.5 mg/dL) 3.5 Magnesium (1.6 - 2.3 mg/dL) 1.8 Total Bilirubin (0.2 - 1.3 mg/dL) 0.5 AST (17 - 59 U/L) 19 ALT (21 - 72 U/L) 31 [id number]-P-[id number] Pept (<125 pg/mL) 433 H Albumin (3.5 - 5.0 g/dL) 3.3 L Hematology CBC w Diff MAN DIFF ORDERED WBC (4.8 - 10.8 /CUMM) 10.7 RBC (4.70 - 6.10 /CUMM) 3.34 L Hgb (14.0 - 18.0 G/DL) 9.4 L Hct (42 - 52 %) 28.8 L MCV (80.0 - 94.0 FL) 86.4 MCH (27.0 - 31.0 PG) 28.0 MCHC (33.0 - 37.0 G/DL) 32.4 L RDW (11.5 - 14.5 %) 14.4 Plt Count (130 - 400 /CUMM) 313 MPV (7.4 - 10.4 FL) 7.2 L Gran % (42.2 - 75.2 %) 86.1 H Lymphocytes % (20.5 - 51.1 %) 8.7 L Monocytes % (1.7 - 9.3 %) 4.7 Eosinophils % (0 - 5 %) 0.1 Basophils % (0.0 - 2.0 %) 0.4 Absolute Granulocytes (1.4 - 6.5 /CUMM) 9.2 H Segmented Neutrophils (42.2 - 75.2 %) 89 H Absolute Lymphocytes (1.2 - 3.4 /CUMM) 0.9 L Lymphocytes (20.5 - 51.1 %) 9 L Monocytes (1.7 - 9.3 %) 2 Absolute Monocytes (0.10 - 0.60 /CUMM) 0.5 Absolute Eosinophils (0.0 - 0.7 /CUMM) 0 Absolute Basophils (0.0 - 0.2 /CUMM) 0 Platelet Estimate (ADEQUATE) ADEQUATE Polychromasia 1+ Hypochromic-Microcytic 1+ Poikilocytosis 1+ Basophilic Stippling 1+ Ovalocytes 1+ Other Body Source Fld Total RBCs Counted (%) 100 Diagnostic Data CXR Results FINDINGS: Patient's rotated to left. Endotracheal tube catheter in position about 4 cm above flori. Nasogastric tube tip in stomach. There is continued mild central pulmonary vascular prominence accentuated by the low inspiration. There is continued density the left lung base of infiltrate and/or atelectasis. There is improved aeration at the right lung base since prior chest x-ray. IMPRESSION: 1. Endotracheal tube 4 cm above flori. 2. Nasogastric tube in stomach. 3. Low lung volumes. Improved aeration of right lung. Persistent dense left lung base Other Results Echocardiogram:CONCLUSIONS 1. This was a technically difficult examination. 2. Aortic sclerosis is present with no valvular stenosis or insufficiency. 3. Mitral leaflet thickening is present with mild to moderate mitral insufficiency and moderate left atrial enlargement. 4. A physiologic pericardial effusion is noted. 5. The left ventricular chamber size and systolic function are normal with mild concentric hypertrophy and no resting wall motion abnormalities. Mild diastolic dysfunction is present. 6. Mild tricuspid insufficiency is present with an estimated RV systolic pressure of at least 40 mmHg. 7. Lipomatous atrial septal hypertrophy is noted. Assessment/Plan Assessment/Plan Assessment: 1. Nonsustained wide-complex tachycardia-the patient's rhythm strip is most suggestive of nonsustained ventricular tachycardia. At the moment, his potassium and magnesium are somewhat borderline. His left ventricular function is normal by recent echocardiogram. There is no evidence of ischemia. 2. Acute hypoxic respiratory failure 3. History of hypertension 4. Possible bronchitis/pneumonia; sputum culture positive for staph aureus 5. Pulmonary nodules 6. History of hypertension 7. Transient acute HFpEF, likely related to volume overload 8. Normocytic anemia 9. Hypoalbuminemia Recommendations: -The case was discussed in detail with the medical house staff. -Continue current medications. Continue beta blockers at current dose for now. -Replete potassium and magnesium -No need to repeat echocardiogram -Continue to monitor on equipment monitor phototypesetting -Recheck troponin to rule out interval change -If recurrent episodes of nonsustained wide, plus tachycardia are noted, consider increasing carvedilol to 12.5 mg twice a day -Otherwise continue as per the medical/ICU team. Consult Acknowledgment - Thank you for your consult request.
--- NOTE | 2018-01-19 20:01 | Incdntl Nt Psy ---
Incidental Note Notation: 52 , male presented to the ED 01/15/18 with a CC of worsening SOB. PMH includes hypertension, ANDREW on CPAP at night. He also reports he drinks 2 pints of vodka daily, He is currently intubated and on a lorazepam drip for delirium tremens. The lorazepam is running at 15 mg/hour, now at 1950. Propofol was stopped at approx. 1300. We had been asked previously about his psychotropic medications, including bupropion, zolpidem, hydroxyzine, and amphetamine salts. We are unsure why the gabapentin is prescribed, but it is sometimes used off-label for anxiety. Since the patient has an alcohol use disorder, he should not restart bupropion, due to the combined effect of lowering seizure threshold. Also, zolpidem presents an increased risk of dependence in patients who drink alcoholically, and should be avoided, along with the other "Z" drugs, such as zaleplon. Hydroxyzine, sometimes used for anxiety, can prolong QTc; The ekg of 01/19/18 shows SR 64 bpm, and QTc 475 mS, the upper limit we observe for increased risk for TdP. The patient does not need amphetamine salts/Adderall in the hospital. 1. All of the psychotropic medications, as above, can be held, and some should not be restarted. We will offer assistance as we go forward in finding acceptable medications after we can interview the patient. 2. When medically clear, we would like to see the patient enter into aftercare with [facility], if he wants to stop drinking alcohol, [facility] we suggest. Social work can assist with this process. We will continue to follow along. Thank you for this consult.
[2018-01-20] VITALS (7 sets, daily range): BP systolic 140–163; BP diastolic 76–98
[2018-01-20 04:30] LABS: ABSOLUTE BASOPHIL COUNT 0 /CUMM (0.0-0.2); ABSOLUTE EOSINOPHIL COUNT 0 /CUMM (0.0-0.7); ABSOLUTE GRANULOCYTE CT 9.3 /CUMM (1.4-6.5); ABSOLUTE MONOCYTE COUNT 0.5 /CUMM (0.10-0.60); BASOPHIL % 0.2 % (0.0-2.0); EOSINOPHIL % 0.1 % (0-5); GRANULOCYTE % 86.3 % (42.2-75.2); HEMATOCRIT 31.4 % (42-52); MEAN CORPUSCULAR HGB 27.1 PG (27.0-31.0); MEAN CORPUSCULAR HGB CONC 31.3 G/DL (33.0-37.0); MEAN CORPUSCULAR VOLUME 86.7 FL (80.0-94.0); MEAN PLATELET VOLUME 7.1 FL (7.4-10.4); PLATELET COUNT 333 /CUMM (130-400); RBC DISTRIBUTION WIDTH 14.2 % (11.5-14.5); RED BLOOD CELL CT 3.62 /CUMM (4.70-6.10); WHITE BLOOD CELL COUNT 10.7 /CUMM (4.8-10.8)
--- NOTE | 2018-01-20 05:54 | RADIOLOGY REPORT ---
EXAMINATION: XR PORTABLE CHEST CLINICAL INFORMATION: Intubation. COMPARISON: Chest x-ray January 19, 2018, 6:05 AM TECHNIQUE: Portable frontal view of the chest was obtained. 5:22 AM FINDINGS: Patient's rotated to left. Endotracheal tube catheter about 5 cm above the flori. Nasogastric tube passes down into stomach. Lung volume is low. There is continued mild central pulmonary vascular congestion accentuated by the low inspiratory effort. Improved aeration at right lung base. There is no focal consolidation. No large pleural effusion. IMPRESSION: 1. Endotracheal tube twice and is above flori. 2. Nasogastric tube passes into stomach. 3. Low lung volume with mild central pulmonary vascular congestion. 4. Resolved atelectasis of the right lung base.
--- NOTE | 2018-01-20 09:45 | PN- Resident CRCU ---
Subjective HPI/CRCU Issues: Patient has had multiple loose watery bowel movements yesterday and overnight. Patient had guiac positive stools. Vitals: MAXIMUM TEMPERATURE 99, heart rate 60s to 70s, sinus rhythm, respiration rate 16 -2, blood pressure in the 150s over 80s, saturating between 97 and 99% on mechanical ventilation with tidal volume at 450, FiO2 at 40, PEEP at 5 Patient is approximately half a liter fluid positive. Currently on an IV Ativan drip running at 15 IV propofal drip was shut off yesterday at 1 PM Labs: WBC: 10.7, H&H 9.8 and 30 1., platelet count 333 Sodium: 139, potassium: 4.1, chloride: 102, BUN/creatinine 15 and 0.6, calcium 8.9, phosphorus 3.7, magnesium 1.9, LFTs within normal limits, troponin less than 0.01, proBNP 328 ABG: PH 7.43, PCO2 36, PO2 82, bicarbonate 23, ABG O2 saturation at 96, on vent settings of 40% O2, respiratory rate of 16, PEEP of 5, tidal volume 450 Chest x-ray: 1. Endotracheal tube twice and is above flori. 2. Nasogastric tube passes into stomach. 3. Low lung volume with mild central pulmonary vascular congestion. 4. Resolved atelectasis of the right lung base. Objective Vital Signs & I&O Last 8 Hrs of Vitals and I&O: Vital Signs Date Time Temp Pulse Resp B/P B/P Pulse O2 O2 Flow FiO2 Mean Ox Delivery Rate 01/20 1200 94 Ventilator 30% 01/20 1114 30 01/20 0815 40 01/20 0800 97 Ventilator 40% 01/20 0800 97.4 78 24 140/80 97 Ventilator 40% 01/20 0600 67 22 145/79 01/20 0552 40 01/20 0400 98.6 66 16 147/77 01/20 0400 97 Ventilator 40% 01/20 0318 40 01/20 0200 65 18 160/80 01/20 0048 40 01/20 0000 96 Ventilator 40% 01/19 2359 99.2 62 25 158/90 96 Ventilator 40% 01/19 2300 99.2 62 27 158/90 96 Ventilator 40% 01/19 2214 40 01/19 2200 62 23 144/88 01/19 2123 64 136/86 01/19 2021 40 01/20 2000 97.8 70 20 158/90 01/20 2000 96 Ventilator 40% 01/19 1647 40 01/19 1600 98 Ventilator 40% 01/19 1600 99.0 70 16 150/80 98 Ventilator 40% 01/19 1421 40 Intake & Output 01/20 1600 01/20 0800 01/20 0000 Intake Total 1830 2086 Output Total 1375 1575 Balance 455 511 Intake, IV 1197 1450 Intake, Oral 0 0 Intake, Tube 403 346 Feeding Intake, Tube 230 290 Irrigant Number 2 1 Bowel Movements Output, Urine 1375 1575 Exam General Appearance: well developed/nourished, no apparent distress, sedated, intubated, obese Head: atraumatic, normal appearance Respiratory: normal breath sounds, chest non-tender, no respiratory distress, crackles Cardiovascular: regular rate/rhythm Gastrointestinal: normal bowel sounds, soft Extremities: left leg covered with cast IV Drips IV Drips: IV Ativan Nutrition Nutrition: tube feeding Current Medications: Current Medications Sig/Dylan Start time Last Medication Dose Route Stop Time Status Admin Acetaminophen 650 MG Q6P PRN 01/15 2030 AC PO Albuterol Sulfate 3 ML BID 01/16 1000 AC 01/20 INH 0806 Azithromycin 500 MG Q24H 01/16 2000 AC 01/19 Sodium Chloride 250 ML IV 1956 Budesonide 0.5 MG BID 01/17 1415 AC 01/20 INH 0807 Carvedilol 6.25 MG BID 01/15 2200 AC 01/20 PO 0914 Ceftriaxone Sodium 1,000 MG DAILY 01/16 1000 DC 01/20 IV 0913 Enoxaparin Sodium 40 MG DAILY 01/16 1000 AC 01/20 SC 0913 Fentanyl Citrate 50 MCG ONCE ONE 01/19 2045 DC 01/19 IV 01/19 2046 2040 Fentanyl Citrate 100 MCG .STK-MED ONE 01/19 2038 DC IM 01/19 203 Folic Acid 1 MG DAILY 01/19 1000 AC 01/20 PO 0914 Furosemide 40 MG ONCE ONE 01/20 1100 DC 01/20 IV 01/20 1101 1058 Insulin Aspart 0 Q6 01/18 2359 AC 01/20 SC 1217 Lorazepam 100 MG Q7H 01/20 1100 AC 01/20 Dextrose/Water 500 ML IV 1133 Lorazepam 100 MG Q7H 01/19 1400 DC 01/20 Dextrose/Water 1,000 ML IV 0406 Lorazepam 0 Q1P PRN 01/16 1315 AC 01/17 IV 0857 Losartan Potassium 100 MG DAILY 01/16 1000 AC 01/20 PO 0913 Magnesium Oxide 400 MG ONE ONE 01/20 1000 DC 01/20 PO 01/20 1001 1441 Methylprednisolone 40 MG DAILY 01/21 1000 AC IV Methylprednisolone 40 MG Q12 01/19 2200 DC 01/20 IV 0913 Montelukast Sodium 10 MG AT BEDTIME 01/15 2200 AC 01/19 PO 2123 Morphine Sulfate 2 MG Q6-PRN PRN 01/17 1030 AC 01/19 IV 1155 Multivitamins 1 TAB DAILY 01/19 1000 AC 01/20 PO 0914 Nystatin 1 ARMIDA TID 01/17 1000 AC 01/20 TOP 0914 Pantoprazole Sodium 40 MG DAILY 01/17 1000 AC 01/20 IV 0913 Phosphate 250 MG 1330 01/20 1330 DC 01/20 PO 01/20 1331 1440 Propofol 1,000 MG Q12H 01/19 2200 CAN N/A 1 UNIT IV Propofol 1,000 MG Q7H 01/17 0945 DC 01/19 N/A 1 UNIT IV 01/19 2159 1003 Thiamine HCl 100 MG DAILY 01/19 1000 AC 01/20 PO 0913 Impression/Plan Impression/Problem List Impression: Patient is a 52 year old male past medical history of hypertension, ANDREW on CPAP at night presented to the ED with complains of worsening shortness of breath for the past 2 days. He reported using 2 pints of vodka/day Hospital Course: Mr Vitale was admitted with a diagnosis of acute hypoxic respiratory failure likely secondary tp viral bronchitis with possible pneumonia. He was started on oxygen 3L via NC, as well as IV Ceftriaxone and Azithromycin for pneumonia and a 5 day course of Prednisone 40mg. He was initially started on IV Ativan prn per JUAN DAVID. However, by yesterday evening, the patient was reported to be increasingly agitated and hence he was started on scheduled Ativan 2mg q6. 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 His respiratory status deteriorated with his sats in 80s on 8L of oxygen. He was thus transferred to the ICU for possible intubation and IV Ativan drip to treat for alcohol withdrawal. Respiratory: Acute Hypoxic Respiratory Failure likely secondary to bronchitis and ? underlying pneumonia Patient had increased respiratory effort and was intubated for impending respiratory failure. IV propofol was weaned off on 01/19. Patient remains on sedated on IV Ativan. ABG todays is wnl. - Will attempt to wean off the intubation today and IV ativan with agitation score raised to 3-4. - Respiratory therapy on board - ABG and CXR in AM - Continue to monitor q1h - Continue IV Antibiotics - IV Solumedrol decreased to 40mg daily Lung nodules Follow up CT Chest outpatient Infection: Bronchitis/Pneumonia Sputum culture is growing MRSA and patient is positive for MRSA in the nares. However as patient remains afebrile with resolving leukocytosis on day 5 of current IV antibiotics. 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 Will not broaden coverage at this time. - IV Ceftriaxone - IV Azithromycin - Continue to monitor vitals - Trend WBC Cardiac: Run of VTACH - 8 beats on 01/19 EKG was done on 01/19, showed no change from previous EKG. Troponin <0.01. Discussed with cardiology, Dr. [place]. Per cardiology if repeated episodes, coreg can be increased. - electrolytes repleted today - continue to monitor - if further vtach, may increase dose of carvedilol - cardiology on board. appreciate recommendations History of HTN - continue coreg Diastolic Heart Failure Patient's CXR today appears to have improved from day prior. Patient is currently fluid balance positive. Will diurese with IV lasix 40mg today. Patient 's ativan is now double concentrated to decrease excessive fluids. - continue to monitor I/O - continue daily weights - avoid excessive fluids Heme: Anemia. Likely 2/2 to iron deficiency anemia with low iron levels. Patient today was found to have guiac positive stools. Continue to monitor h/h Patient will need to follow up with GI for outpatient colonoscopy IV protonix increased to 40mg BID Metabolic: Alcohol withdrawal - Continue IV Ativan drip and wean as tolerated for PARISH between 3-4. - Monitor CIWA per protocol - Thiamine, Folic acid, MVM Ailementary: NPO due to intubation and sedation Electrolytes repleted Continue tube feeds Diarrhea: Patient has had multiple episodes of loose stools - C.dif sent Neurology: Sedated on IV ativan Wean off Ativan as tolerated Nephrology: None DVT PPx: Lovenox GI PPx: IV Protonix Problem List: 1. Hypoxia 2. Alcohol withdrawal Pain Ratin Tomorrow's Labs & Rationales: cbc - infection bep - lasix, monitor electrolytes abg - intubated Plan DVT/Prophylaxis: mechanical, pharmacological
--- NOTE | 2018-01-20 10:18 | PN- CRCU ---
Subjective HPI/Critical Care Issues: Patient remains intubated sedated hemodynamically stable Objective Current Medications: Current Medications Sig/Dlyan Start time Last Medication Dose Route Stop Time Status Admin Acetaminophen 650 MG Q6P PRN 01/15 2030 AC PO Albuterol Sulfate 3 ML BID 01/16 1000 AC 01/20 INH 0806 Azithromycin 500 MG Q24H 01/16 2000 AC 01/19 Sodium Chloride 250 ML IV 1956 Budesonide 0.5 MG BID 01/17 1415 AC 01/20 INH 0807 Carvedilol 6.25 MG BID 01/15 2200 AC 01/20 PO 0914 Ceftriaxone Sodium 1,000 MG DAILY 01/16 1000 DC 01/20 IV 0913 Enoxaparin Sodium 40 MG DAILY 01/16 1000 AC 01/20 SC 0913 Fentanyl Citrate 50 MCG ONCE ONE 01/19 2045 DC 01/19 IV 01/19 2046 2040 Fentanyl Citrate 100 MCG .STK-MED ONE 01/19 203 DC IM 01/19 203 Folic Acid 1 MG DAILY 01/19 1000 AC 01/20 PO 0914 Insulin Aspart 0 Q6 01/18 2359 AC 01/20 SC 0608 Lorazepam 100 MG Q7H 01/19 1400 AC 01/20 Dextrose/Water 1,000 ML IV 0406 Lorazepam 100 MG Q10H 01/17 1400 DC 01/19 Dextrose/Water 1,000 ML IV 01/19 1359 0550 Lorazepam 0 Q1P PRN 01/16 1315 AC 01/17 IV 0857 Losartan Potassium 100 MG DAILY 01/16 1000 AC 01/20 PO 0913 Magnesium Oxide 400 MG ONE ONE 01/20 1000 DC PO 01/20 1001 Magnesium Oxide 400 MG ONE ONE 01/19 1330 DC 01/19 PO 01/19 1331 1323 Methylprednisolone 40 MG Q12 01/19 2200 AC 01/20 IV 0913 Methylprednisolone 40 MG Q8 01/17 1400 DC 01/19 IV 0508 Montelukast Sodium 10 MG AT BEDTIME 01/15 2200 AC 01/19 PO 2123 Morphine Sulfate 2 MG Q6-PRN PRN 01/17 1030 AC 01/19 IV 1155 Multivitamins 1 TAB DAILY 01/19 1000 AC 01/20 PO 0914 Nystatin 1 ARMIDA TID 01/17 1000 AC 01/20 TOP 0914 Pantoprazole Sodium 40 MG DAILY 01/17 1000 AC 01/20 IV 0913 Phosphate 250 MG 1330 01/20 1330 AC PO 01/20 1331 Phosphate 250 MG 1330 01/19 1330 DC 01/19 PO 01/19 1331 1607 Potassium Chloride 20 MEQ ONCE ONE 01/19 1315 DC 01/19 PO 01/19 1316 1323 Propofol 1,000 MG Q12H 01/19 2200 CAN N/A 1 UNIT IV Propofol 1,000 MG .STK-MED ONE 01/19 1327 DC IV 01/19 1328 Propofol 1,000 MG Q7H 01/17 0945 DC 01/19 N/A 1 UNIT IV 01/19 2159 1003 Thiamine HCl 100 MG DAILY 01/19 1000 AC 01/20 PO 0913 Vital Signs & I&O Last 24 Hrs of Vitals and I&O: Vital Signs Date Time Temp Pulse Resp B/P B/P Pulse O2 O2 Flow FiO2 Mean Ox Delivery Rate 01/20 0815 40 01/20 0800 97 Ventilator 40% 01/20 0800 97.4 78 24 140/80 97 Ventilator 40% 01/20 0600 67 22 145/79 01/20 0552 40 01/20 0400 98.6 66 16 147/77 01/20 0400 97 Ventilator 40% 01/20 0318 40 01/20 0200 65 18 160/80 01/20 0048 40 01/20 0000 96 Ventilator 40% 01/19 2359 99.2 62 25 158/90 96 Ventilator 40% 01/19 2300 99.2 62 27 158/90 96 Ventilator 40% 01/19 2214 40 01/19 2200 62 23 144/88 01/19 2123 64 136/86 01/19 2021 40 01/20 2000 97.8 70 20 158/90 01/20 2000 96 Ventilator 40% 01/19 1647 40 01/19 1600 98 Ventilator 40% 01/19 1600 99.0 70 16 150/80 98 Ventilator 40% 01/19 1421 40 01/19 1200 93 Ventilator 40% Intake & Output 01/20 1600 01/20 0800 01/20 0000 Intake Total 1830 2086 Output Total 1375 1575 Balance 455 511 Intake, IV 1197 1450 Intake, Oral 0 0 Intake, Tube 403 346 Feeding Intake, Tube 230 290 Irrigant Number 2 1 Bowel Movements Output, Urine 1375 1575 FiO2 0.4 saturation 97% exam of his chest shows rare rhonchi cardiac exam shows regular S1 and S2 without murmurs abdomen is soft nontender x-ray shows no evidence of pneumonia Impression/Plan Impression/Plan Impression/Plan: 52-year-old intubated in the setting of alcohol withdrawal bronchitis. Respiratory status appears stable. Sputum shows few white cells and MRSA is likely a colonizer. Recommendations: Decrease IV Solu-Medrol to daily. Taper FiO2 as saturations allow. Continue sedation. DVT prophylaxis
[2018-01-21] VITALS (15 sets, daily range): BP systolic 138–185; BP diastolic 70–102
--- NOTE | 2018-01-21 06:27 | RADIOLOGY REPORT ---
EXAMINATION: CHEST 1 VIEW CLINICAL INFORMATION: Intubated. COMPARISON: January 20, 2018. TECHNIQUE: An AP view of the chest is provided. FINDINGS: The cardiac silhouette is enlarged, though stable. An endotracheal tube is in place. The tip is approximately 4 cm above the flori. An enteric tube is in place. The tip extends below the diaphragm. The mediastinal and hilar contours are unremarkable. There are neither pleural effusions nor pneumothoraces. There are no consolidations. The osseous structures are unremarkable. IMPRESSION: No evidence for acute disease. Endotracheal tube and enteric tube in place.
[2018-01-21 08:18] LABS: ABSOLUTE BASOPHIL COUNT 0 /CUMM (0.0-0.2); ABSOLUTE EOSINOPHIL COUNT 0.5 /CUMM (0.0-0.7); ABSOLUTE GRANULOCYTE CT 10.5 /CUMM (1.4-6.5); ABSOLUTE LYMPH COUNT 2.4 /CUMM (1.2-3.4); ABSOLUTE MONOCYTE COUNT 1.1 /CUMM (0.10-0.60); BASOPHIL % 0.3 % (0.0-2.0); EOSINOPHIL % 3.1 % (0-5); GRANULOCYTE % 72.6 % (42.2-75.2); HEMATOCRIT 33.7 % (42-52); MEAN CORPUSCULAR HGB 27.7 PG (27.0-31.0); MEAN CORPUSCULAR HGB CONC 32.5 G/DL (33.0-37.0); MEAN CORPUSCULAR VOLUME 85.3 FL (80.0-94.0); MEAN PLATELET VOLUME 6.9 FL (7.4-10.4); PLATELET COUNT 329 /CUMM (130-400); RBC DISTRIBUTION WIDTH 14.2 % (11.5-14.5); RED BLOOD CELL CT 3.95 /CUMM (4.70-6.10); WHITE BLOOD CELL COUNT 14.4 /CUMM (4.8-10.8)
--- NOTE | 2018-01-21 08:35 | PN- Resident CRCU ---
Subjective HPI/CRCU Issues: Patient seen and examined. He is seen lying flat in bed with his head elevated intubated on a vent with multiple lines and restraints in place. He appears to be in no acute distress. He is awake and alert and follows simple commands. When asked if he is in any pain he shakes his head indicating "No". Subjective complaints and review of systems are unobtainable. Objective Vital Signs & I&O Last 8 Hrs of Vitals and I&O: Tele NSR HR 70s/80s SBP 150s/160s Exam General Appearance: awake, comfortable, intubated, lethargic Other Physical Findings: GEN: obese middle aged man in no acute distress HEENT: NCAT, PERRL, EOMI, anicteric sclera, MMM, ET/OG tubes in place NECK: Supple, no JVD, trachea midline CARD: Normal S1/S2 w/o m/g/r; RRR PULM: CTA bilaterally ABD: Soft, NT, ND, BS + : Amos catheter in place draining clear yellow urine NEURO: Awake and alert, calm and cooperative following simple commands, CN II- XII EXT: hard cast in place on LLE, normal pulses, sensation intact, no edema Weaning Parameters NIF: 48 Weaning Schedule Start Time: 1015 Minute Volume: 9.6 Resp Rate: 27 Vt: 390 Heart Rate: 66 End Time: 1020 Minute Volume: 10.4 Resp Rate: 38 Vt: 350 Heart Rate: 66 Start Time: 1245 Minute Volume: 12.0 Resp Rate: 32 Vt: 385 Heart Rate: 66 End Time: 1420 Minute Volume: 13.8 Resp Rate: 38 Vt: 400 Heart Rate: 88 Current Medications: Current Medications Sig/Dylan Start time Last Medication Dose Route Stop Time Status Admin Acetaminophen 1,000 MG ONCE ONE 01/21 0230 DC 01/21 N/A 1 UNIT IV 01/21 0244 0251 Acetaminophen 650 MG Q6P PRN 01/15 2030 AC PO Albuterol Sulfate 3 ML BID 01/16 1000 AC 01/21 INH 0806 Azithromycin 500 MG Q24H 01/17 2000 DC 01/19 Sodium Chloride 250 ML IV 195 Budesonide 0.5 MG BID 01/17 1415 AC 01/21 INH 0806 Carvedilol 6.25 MG BID 01/15 2200 AC 01/21 PO 1046 Enoxaparin Sodium 40 MG DAILY 01/16 1000 AC 01/21 SC 1045 Folic Acid 1 MG DAILY 01/19 1000 AC 01/21 PO 1045 Insulin Aspart 0 Q6 01/18 2359 AC 01/21 SC 0700 Lorazepam 100 MG Q7H 01/20 1100 AC 01/21 Dextrose/Water 500 ML IV 1047 Lorazepam 0 Q1P PRN 01/16 1315 AC 01/21 IV 0322 Losartan Potassium 100 MG DAILY 01/16 1000 AC 01/21 PO 1045 Methylprednisolone 40 MG DAILY 01/21 1000 AC 01/21 IV 1045 Methylprednisolone 40 MG Q12 01/19 2200 DC 01/20 IV 0913 Montelukast Sodium 10 MG AT BEDTIME 01/15 2200 AC 01/20 PO 2300 Morphine Sulfate 4 MG .STK-MED ONE 01/20 2327 DC IM 01/20 232 Morphine Sulfate 2 MG Q6-PRN PRN 01/17 1030 AC 01/20 IV 2328 Multivitamins 1 TAB DAILY 01/19 1000 AC 01/21 PO 1045 Nystatin 1 ARMIDA TID 01/17 1000 DC 01/20 TOP 2220 Pantoprazole Sodium 40 MG DAILY 01/17 1000 AC 01/21 IV 1045 Phosphate 250 MG 1330 01/20 1330 DC 01/20 PO 01/20 1331 1440 Thiamine HCl 100 MG DAILY 01/19 1000 AC 01/21 PO 1045 Impression/Plan Impression/Problem List Impression: 52 year old man with multiple medical problems obstructive sleep apnea and alcohol abuse seen for evaluation of worsening shortness of breath found to have acute bronchitis / pneumonia. Patient was started on intravenous antibiotics and steroids but subsequently developed respiratory failure requiring intubation. He began to show symptoms of alcohol withdrawal with elevated CIWA scores for which ativan drip was started. Patient remains hemodynamically stable while intubated on a ventilator with ativan drip for EtOH withdrawal. He is awake and alert, calm and cooperitive, following simple commands. He remains on maximum dose ativan via drip and is requiring multiple additional doses of ativan per CIWA scoring. He remains afebrile off antibiotics, however has mild leukocytosis without any clear significance. Patient underwent a weaning trial successfully today and was subsequently extubated. Problem List -Acute hypoxic Respiratory Failure s/p intubation -Acute Bronchitis/Pneumonia -EtOH withdrawal, on Ativan Drip -ANDREW on CPAP -Hypertension -Hyperlipidemia -GERD -ADHD -Depression -History of pancreatitis -History of alcohol withdrawal seizures -History of heroin abuse -Iron Deficiency anemia with guaic positive stools Plan -Continue ICU admission -Telemetry monitoring -TRC with Nebs PRN -Intubated, on Vent: VT 450, RR 16, FiO2 30%, PEEP 5 -OGT / Amos -CIWA -Restraints: soft bilateral upper extremities -Contact isolation for MRSA -Accuchecks with Novolog SSI Q6H -Guaic all stools -Ativan GGT -Ativan PRN per CIWA -Solumedrol 40 mg IV Daily -Protonix 40 mg IV Daily -S/P 5 days azithromycin/ceftriaxone -Thiamine / Folate / Multivitamin -Continue meds: Pulmicort, Coreg, Losartan -Psych following for alcohol abuse -Cardiology following for ectopy -Follow cultures & sensitivites -Daily CBC, ICU, ABG, CXR -Pain control with acetaminophen, morphine -NPO, on Tube Feeds -DVT PPx with lovenox -FULL CODE -Outpatient follow up for lung nodules and anemia Problem List: 1. Hypoxia 2. Acute bronchitis 3. Alcohol withdrawal Pain Ratin Tomorrow's Labs & Rationales: CBC, ICU, ABG, CXR Plan DVT/Prophylaxis: mechanical, pharmacological Plan DVT/Prophylaxis: mechanical, pharmacological
--- NOTE | 2018-01-21 09:42 | PN- CRCU ---
Subjective HPI/Critical Care Issues: Patient remains intubated and sedated Objective Current Medications: Current Medications Sig/Dylan Start time Last Medication Dose Route Stop Time Status Admin Acetaminophen 1,000 MG ONCE ONE 01/21 0230 DC 01/21 N/A 1 UNIT IV 01/21 0244 0251 Acetaminophen 650 MG Q6P PRN 01/15 2030 AC PO Albuterol Sulfate 3 ML BID 01/16 1000 AC 01/21 INH 0806 Azithromycin 500 MG Q24H 01/16 2000 DC 01/19 Sodium Chloride 250 ML IV 1956 Budesonide 0.5 MG BID 01/17 1415 AC 01/21 INH 0806 Carvedilol 6.25 MG BID 01/15 2200 AC 01/20 PO 2300 Ceftriaxone Sodium 1,000 MG DAILY 01/16 1000 DC 01/20 IV 0913 Enoxaparin Sodium 40 MG DAILY 01/16 1000 AC 01/20 SC 0913 Folic Acid 1 MG DAILY 01/19 1000 AC 01/20 PO 0914 Furosemide 40 MG ONCE ONE 01/20 1100 DC 01/20 IV 01/20 1101 1058 Insulin Aspart 0 Q6 01/18 2359 AC 01/21 SC 0700 Lorazepam 100 MG Q7H 01/20 1100 AC 01/21 Dextrose/Water 500 ML IV 0232 Lorazepam 100 MG Q7H 01/19 1400 DC 01/20 Dextrose/Water 1,000 ML IV 0406 Lorazepam 0 Q1P PRN 01/16 1315 AC 01/21 IV 0322 Losartan Potassium 100 MG DAILY 01/16 1000 AC 01/20 PO 0913 Magnesium Oxide 400 MG ONE ONE 01/20 1000 DC 01/20 PO 01/20 1001 1441 Methylprednisolone 40 MG DAILY 01/21 1000 AC IV Methylprednisolone 40 MG Q12 01/19 2200 DC 01/20 IV 0913 Montelukast Sodium 10 MG AT BEDTIME 01/15 2200 AC 01/20 PO 2300 Morphine Sulfate 4 MG .STK-MED ONE 01/20 2327 DC IM 01/20 2328 Morphine Sulfate 2 MG Q6-PRN PRN 01/17 1030 AC 01/20 IV 2328 Multivitamins 1 TAB DAILY 01/19 1000 AC 01/20 PO 0914 Nystatin 1 ARMIDA TID 01/17 1000 AC 01/20 TOP 2220 Pantoprazole Sodium 40 MG DAILY 01/17 1000 AC 01/20 IV 0913 Phosphate 250 MG 1330 01/20 1330 DC 01/20 PO 01/20 1331 1440 Thiamine HCl 100 MG DAILY 01/19 1000 AC 01/20 PO 0913 Vital Signs & I&O Last 24 Hrs of Vitals and I&O: Vital Signs Date Time Temp Pulse Resp B/P B/P Pulse O2 O2 Flow FiO2 Mean Ox Delivery Rate 01/21 0810 30 01/21 0800 98.4 84 18 160/90 01/21 0800 98.4 84 18 160/90 94 Ventilator 30% 01/21 0606 30 01/21 0600 76 28 167/84 01/21 0400 97.9 86 25 154/84 01/21 0400 96 Ventilator 30% 01/21 0340 30 01/21 0300 82 30 151/80 01/21 0200 88 25 160/84 01/21 0100 88 23 166/84 01/21 0050 30 01/21 0000 98.8 92 26 174/102 01/21 0000 98.8 92 26 174/102 97 Ventilator 30% 01/21 0000 97 Ventilator 30% 01/20 2300 98 164/88 01/20 2235 30 01/20 2200 88 28 163/98 01/21 2000 98.1 74 16 155/85 01/20 2000 97 Ventilator 30% 01/20 1910 30 01/20 1625 30 01/20 1600 96 Ventilator 30% 01/20 1600 98.9 80 26 140/76 94 Ventilator 30% 01/20 1432 30 01/20 1200 94 Ventilator 30% 01/20 1114 30 Intake & Output 01/21 1600 01/21 0800 01/21 0000 Intake Total 1474 1917 Output Total 1000 1202 Balance 474 715 Intake, IV 645 738 Intake, Tube 599 679 Feeding Intake, Tube 230 500 Irrigant Number 300 150 Bowel Movements Output, Stool 0 2 Output, Urine 1000 1200 Oxygen saturation 94-96% exam of his chest shows occasional rhonchi cardiac exam shows a regular S1 and S2 abdomen is soft. Positive bowel sounds Impression/Plan Impression/Plan Impression/Plan: 52-year-old gentleman intubated in the setting of COPD and alcohol withdrawal his Ativan is been able to be tapered. Recommendations: Now the propofol has been discontinued assess weaning parameters and begin CPAP pressure support trials.
[2018-01-22] VITALS (7 sets, daily range): BP systolic 148–193; BP diastolic 83–100
[2018-01-22 05:31] LABS: ABSOLUTE BASOPHIL COUNT 0.1 /CUMM (0.0-0.2); ABSOLUTE EOSINOPHIL COUNT 0.4 /CUMM (0.0-0.7); ABSOLUTE GRANULOCYTE CT 11.6 /CUMM (1.4-6.5); ABSOLUTE LYMPH COUNT 2.2 /CUMM (1.2-3.4); ABSOLUTE MONOCYTE COUNT 0.9 /CUMM (0.10-0.60); BASOPHIL % 0.4 % (0.0-2.0); EOSINOPHIL % 2.8 % (0-5); GRANULOCYTE % 76.2 % (42.2-75.2); HEMATOCRIT 34.4 % (42-52); MEAN CORPUSCULAR HGB CONC 31.7 G/DL (33.0-37.0); MEAN PLATELET VOLUME 7.2 FL (7.4-10.4); PLATELET COUNT 307 /CUMM (130-400); RBC DISTRIBUTION WIDTH 14.5 % (11.5-14.5); RED BLOOD CELL CT 4.05 /CUMM (4.70-6.10); WHITE BLOOD CELL COUNT 15.3 /CUMM (4.8-10.8)
--- NOTE | 2018-01-22 07:21 | PN- Resident CRCU ---
Jase KU,Jayne 01/22/18 0720: Subjective HPI/CRCU Issues: Overnight issues: Patient was extubated yesterday afternoon. Patient was on CPAP overnight. Patient is currently in wrist restraint due to confusion and impulsivity. Patient this morning is alert and oriented 3 asking for his . Patient denies any shortness of breath, chest pain, cough, fever/chills, abdominal pain, nausea/vomiting, tremor, auditory/visual/tactile hallucinations, headache, sweating. Vitals: MAXIMUM TEMPERATURE 98.9, heart rate 70s to 90s, sinus rhythm, respiration rate 16- 20, blood pressure 168/90, saturating at 95-99% Total intake 18,404, output 20,075 On IV Ativan drip currently at a rate of 10. Labs: WBC 15.3 with 76 percent granulocytes, H&H 10.9 and 34.4, platelet count 307. Sodium 143, potassium 3.7, chloride 104, bicarbonate 24, BUN 14, creatinine 0.6, calcium 9.2, phosphorus 3.8, magnesium 1.9 LFTs within normal limits ABG: PH 7.44, PCO2 33, PO2 109, bicarbonate 22, ABG O2 sat at 97, Chest x-ray: No evidence for acute disease. Endotracheal tube and enteric tube in place. Objective Vital Signs & I&O Last 8 Hrs of Vitals and I&O: Vital Signs Date Time Temp Pulse Resp B/P B/P Pulse O2 O2 Flow FiO2 Mean Ox Delivery Rate 01/22 0843 94 Nasal 2.0L Cannula 01/22 0600 98.8 90 20 178/94 01/22 0526 79 97 01/22 0400 98.8 85 24 174/83 01/22 0400 97 CPAP 2.0L 01/22 0246 78 96 01/22 0200 98.0 88 20 193/90 01/22 0004 78 100 01/22 0000 98.0 90 22 157/86 01/22 0000 96 CPAP 2.0L 01/22 0000 98.0 90 22 157/86 96 CPAP 2.0L 01/21 2200 97.4 78 18 153/86 01/21 2137 71 97 01/21 2112 83 058/83 01/21 2015 97 Nasal 2.0L Cannula 01/22 2000 Nasal 3.0L Cannula 01/22 2000 97.4 70 20 142/76 01/21 1800 98.4 80 32 138/73 01/21 1700 98.4 84 20 146/70 01/21 1645 30 01/21 1600 98.4 86 20 160/88 01/21 1600 97 Ventilator 30% 01/21 1600 98.4 86 20 160/88 97 CPAP 01/21 1415 30 01/21 1400 98.6 92 28 173/94 01/21 1200 98.6 84 30 158/90 01/21 1200 94 Ventilator 30% 01/21 1046 80 185/94 01/21 1045 30 01/21 1045 80 185/94 01/21 1000 98.4 84 20 18594 Intake & Output 01/22 1600 01/22 0800 01/22 0000 Intake Total 400 400 Output Total 750 1195 Balance -350 -795 Intake, IV 400 400 Output, Stool 50 Output, Urine 700 1195 Exam General Appearance: well developed/nourished, no apparent distress, alert, awake , comfortable, obese Head: atraumatic, normal appearance Respiratory: chest non-tender, no respiratory distress, wheezing Cardiovascular: regular rate/rhythm Gastrointestinal: normal bowel sounds, soft, non-tender Extremities: normal inspection, left leg with cast Cranial Nerves: normal hearing, normal speech, PERRL Weaning Parameters NIF: 35 Minute Volume: 9.7 Resp rate: 26 Vt: 350 Heart Rate: 110 Weaning Schedule Start Time: 1050 Minute Volume: 11.5 Resp Rate: 29 Vt: 450 Heart Rate: 110 End Time: 1205 Minute Volume: 12.1 Resp Rate: 26 Vt: 1089 Heart Rate: 100 Start Time: 1415 Minute Volume: 10.1 Resp Rate: 26 Vt: 401 Heart Rate: 86 End Time: 1420 Minute Volume: 13.8 Resp Rate: 38 Vt: 400 Heart Rate: 88 IV Drips IV Drips: IV Ativan Drip Nutrition Nutrition: NPO, tube feeding Current Medications: Current Medications Sig/Dylan Start time Last Medication Dose Route Stop Time Status Admin Acetaminophen 650 MG Q6P PRN 01/15 2030 AC PO Albuterol Sulfate 3 ML BID 01/16 1000 AC 01/22 INH 0839 Budesonide 0.5 MG BID 01/17 1415 AC 01/22 INH 0840 Carvedilol 6.25 MG BID 01/15 2200 AC 01/21 PO 1046 Enoxaparin Sodium 40 MG DAILY 01/16 1000 AC 01/21 SC 1045 Folic Acid 1 MG DAILY 01/19 1000 AC 01/21 PO 1045 Insulin Aspart 0 Q6 01/18 2359 DC 01/21 SC 1229 Lorazepam 100 MG Q7H 01/20 1100 AC 01/22 Dextrose/Water 500 ML IV 0609 Lorazepam 0 Q1P PRN 01/16 1315 AC 01/21 IV 0322 Losartan Potassium 100 MG DAILY 01/16 1000 AC 01/21 PO 1045 Methylprednisolone 40 MG DAILY 01/21 1000 AC 01/21 IV 1045 Montelukast Sodium 10 MG AT BEDTIME 01/15 2200 AC 01/20 PO 2300 Morphine Sulfate 2 MG Q6-PRN PRN 01/17 1030 AC 01/21 IV 1227 Multivitamins 1 TAB DAILY 01/19 1000 AC 01/21 PO 1045 Nystatin 1 ARMIDA TID 01/17 1000 DC 01/20 TOP 2220 Pantoprazole Sodium 40 MG DAILY 01/17 1000 AC 01/21 IV 1045 Potassium Chloride 30 MEQ ONCE ONE 01/22 0745 DC PO 01/22 0746 Thiamine HCl 100 MG DAILY 01/19 1000 AC 01/21 PO 1045 Impression/Plan Impression/Problem List Impression: Patient is a 52 year old male past medical history of hypertension, ANDREW on CPAP at night presented to the ED with complains of worsening shortness of breath for the past 2 days. He reported using 2 pints of vodka/day Hospital Course: Mr Vitale was admitted with a diagnosis of acute hypoxic respiratory failure likely secondary tp viral bronchitis with possible pneumonia. He was started on oxygen 3L via NC, as well as IV Ceftriaxone and Azithromycin for pneumonia and a 5 day course of Prednisone 40mg. He was initially started on IV Ativan prn per JUAN DAVID. However, by yesterday evening, the patient was reported to be increasingly agitated and hence he was started on scheduled Ativan 2mg q6. On 01/18 consultant at ~ 5AM, patient was reported to be increasingly agitated requiring frequent doses of IV Ativan. His respiratory status deteriorated with his sats in 80s on 8L of oxygen. He was thus transferred to the ICU for possible intubation and IV Ativan drip to treat for alcohol withdrawal. Respiratory: Acute Hypoxic Respiratory Failure likely secondary to bronchitis and ? underlying pneumonia Patient had increased respiratory effort and was intubated for impending respiratory failure on 01/18 and sedated with IV propofol which was weaned off on 01/19. Sedation was continued with IV Ativan. Patient was successfully extubated on 01/21. Patient's chest x-ray and blood gas are within normal limits. Patient is in no acute respiratory distress this morning saturating well on nasal cannula and CPAP at night. Patient received a DuoNeb treatment this morning. - Oxygen supplementation, continue to wean off as tolerated. - TRC/DuoNeb - IV Solumedrol discontinued - Start by mouth prednisone at 40 mg daily for the next 3 days followed by tapering to 30 mg daily Lung nodules - Follow up CT Chest outpatient Infection: Bronchitis/Pneumonia Sputum culture is growing MRSA and patient is positive for MRSA in the nares. 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 Patient received a total of 5 days of IV antibiotics. Patient remains afebrile in no acute respiratory distress with decreasing requirement of oxygen and doing well off mechanical ventilation. Patient's leukocytosis is likely secondary to steroid use. Patient's chest x- ray and ABG are within normal limits. - Continue to monitor vitals and watch off antibiotics Cardiac: Run of VTACH - 8 beats on 01/19 EKG was done on 01/19, showed no change from previous EKG. Troponin <0.01. Discussed with cardiology, Dr. Boston. Per cardiology if repeated episodes, coreg can be increased. - electrolytes repleted today - continue to monitor - if further vtach, may increase dose of carvedilol - cardiology on board. appreciate recommendations History of HTN - continue coreg Diastolic Heart Failure Patient's echo showed mild diastolic dysfunction. During his ICU stay patient was fluid overloaded requiring daily IV Lasix. Patient today appears euvolemic with a normal chest x-ray. - continue to monitor I/O - continue daily weights - avoid excessive fluids Heme: Anemia. Likely 2/2 to iron deficiency anemia with low iron levels. Guiac positive stools on 01/20. H/H stable. - Continue to monitor h/h - Patient will need to follow up with GI for outpatient colonoscopy - IV protonix switched to PO Metabolic: Alcohol withdrawal - Continue IV Ativan drip and wean as tolerated - Monitor CIWA per protocol - Thiamine, Folic acid, MVM Ailementary: Formal swallow evaluation today after extubating on 01/21. Patient started on a heart healthy puree, nectar thick diet. Electrolytes repleted today Diarrhea: Patient has had multiple episodes of loose stools. - C.dif negative Neurology: Sedated on IV ativan Wean off Ativan as tolerated Nephrology: None DVT PPx: Lovenox Problem List: 1. Alcohol withdrawal 2. Leukocytosis 3. Hypoxia 4. Acute bronchitis 5. V-tach Pain Ratin Tomorrow's Labs & Rationales: cbc- leukocytosis icu bundle Plan DVT/Prophylaxis: mechanical, pharmacological Juan KU,Royal 01/22/18 1101: Attending MD Review Statement Attending Sign Off Attending Cosign Statement: I have: examined this patient, reviewed aval EMR data, personally reviewd images, discussd w/resident/PA/MARKETING LIAISON, discussed mgmt plan w/tulio, discussed mgmt plan w/CM, discussed mgmt plan w/pt, agreed w/resident/PA/MARKETING LIAISON, amended to note. Other Findings: Impression 52 year old man * improved acute hypoxemic respiratory failure, likely to withdrawal symptoms requiring increased sedation * substance dependence, etoh dependence Plan Respiratory -steroid taper -po prednisone ID -monitor wbc, fevers CVS -ECHO reviewed -lasix -monitor hemodynamics -monitor ins/outs Heme -monitor cbc, coags, platelets Metabolic -ins/outs -monitor electrolytes -mvi, folate, thiamine Alimentary -diet/nutrition follow up Neuro -ciwa -taper ativan gtt -psych/crisis evaluation DVT prophylaxis at all times TTS 35 min
--- NOTE | 2018-01-22 12:29 | PN- Cardiology ---
Objective Vital Signs and I&Os Vital Signs Date Time Temp Pulse Resp B/P B/P Pulse O2 O2 Flow FiO2 Mean Ox Delivery Rate 01/22 1200 96 Nasal 2.0L Cannula 01/22 0843 94 Nasal 2.0L Cannula 01/22 0800 94 Nasal 2.0L Cannula 01/22 0600 98.8 90 20 178/94 01/22 0526 79 97 01/22 0400 98.8 85 24 174/83 01/22 0400 97 CPAP 2.0L 01/22 0246 78 96 01/22 0200 98.0 88 20 193/90 01/22 0004 78 100 01/22 0000 98.0 90 22 157/86 01/22 0000 96 CPAP 2.0L 01/22 0000 98.0 90 22 157/86 96 CPAP 2.0L 01/21 2200 97.4 78 18 153/86 01/21 2137 71 97 01/21 2112 83 058/83 01/21 2015 97 Nasal 2.0L Cannula 01/22 2000 Nasal 3.0L Cannula 01/22 2000 97.4 70 20 142/76 01/21 1800 98.4 80 32 138/73 01/21 1700 98.4 84 20 146/70 01/21 1645 30 01/21 1600 98.4 86 20 160/88 01/21 1600 97 Ventilator 30% 01/21 1600 98.4 86 20 160/88 97 CPAP 01/21 1415 30 01/21 1400 98.6 92 28 173/94 Intake & Output 01/22 1600 01/22 0800 01/22 0000 01/21 1600 01/21 0800 01/21 0000 Intake Total 869 036 7940 1474 1917 Output Total 750 1195 1650 1000 1202 Balance -350 -795 -527 474 715 Intake, IV 400 400 454 645 738 Intake, Other 215 Intake, Tube 454 599 679 Feeding Intake, Tube 230 500 Irrigant Number 300 150 Bowel Movements Output, Stool 50 300 0 2 Output, Urine 700 1195 1350 1000 1200 Current Medications: Current Medications Sig/Dylan Start time Last Medication Dose Route Stop Time Status Admin Acetaminophen 650 MG Q6P PRN 01/15 2030 AC PO Albuterol Sulfate 3 ML BID 01/16 1000 AC 01/22 INH 0839 Budesonide 0.5 MG BID 01/17 1415 AC 01/22 INH 0840 Carvedilol 6.25 MG BID 01/15 2200 AC 01/22 PO 1023 Enoxaparin Sodium 40 MG DAILY 01/16 1000 AC 01/22 SC 1023 Folic Acid 1 MG DAILY 01/19 1000 AC 01/22 PO 1024 Insulin Aspart 0 Q6 01/18 2359 DC 01/21 SC 1229 Lorazepam 100 MG Q10H 01/22 1400 AC Dextrose/Water 500 ML IV Lorazepam 100 MG Q7H 01/20 1100 DC 01/22 Dextrose/Water 500 ML IV 0609 Lorazepam 0 Q1P PRN 01/16 1315 AC 01/21 IV 0322 Losartan Potassium 100 MG DAILY 01/16 1000 AC 01/22 PO 1023 Methylprednisolone 40 MG DAILY 01/21 1000 AC 01/22 IV 1024 Montelukast Sodium 10 MG AT BEDTIME 01/15 2200 AC 01/20 PO 2300 Morphine Sulfate 2 MG Q6-PRN PRN 01/17 1030 AC 01/21 IV 1227 Multivitamins 1 TAB DAILY 01/19 1000 AC 01/22 PO 1024 Pantoprazole Sodium 40 MG DAILY 01/17 1000 AC 01/22 IV 1024 Potassium Chloride 30 MEQ ONCE ONE 01/22 0745 DC 01/22 PO 01/22 0746 1023 Thiamine HCl 100 MG DAILY 01/19 1000 AC 01/22 PO 1024 Results Last 48 Hrs of Labs/Mics: Laboratory Tests 01/22/18 0500: Anion Gap 14, Estimated GFR > 60, Glucose 128 H, Calcium 9.2, Phosphorus 3.8, Magnesium 1.9, Total Bilirubin 0.6, AST 22, ALT 33, Albumin 3.5, CBC w Diff NO MAN DIFF REQ, RBC 4.05 L, MCV 85.0, MCH 27.0, MCHC 31.7 L, RDW 14.5, MPV 7.2 L, Gran % 76.2 H, Lymphocytes % 14.4 L, Monocytes % 6.2, Eosinophils % 2.8, Basophils % 0.4, Absolute Granulocytes 11.6 H, Absolute Lymphocytes 2.2, Absolute Monocytes 0.9 H, Absolute Eosinophils 0.4, Absolute Basophils 0.1 01/21/18 1550: pH 7.44, pCO2 33 L, pO2 109 H, HCO3 22, ABG O2 Sat (Measured) 97.0, P-50 (Temp Corrected) N, Carboxyhemoglobin 0.5 L, O2 Concentration % 30%, Temperature 98.6 , O2 Delivery Method ESPRIT, Vent Mode CPAP, Expiratory Pressure 5, Pressure Support 6, Phlebotomy Draw Site RIGHT RADIAL 01/21/18 0658: CBC w Diff NO MAN DIFF REQ, RBC 3.95 L, MCV 85.3, MCH 27.7, MCHC 32.5 L, RDW 14.2, MPV 6.9 L, Gran % 72.6, Lymphocytes % 16.4 L, Monocytes % 7.6, Eosinophils % 3.1, Basophils % 0.3, Absolute Granulocytes 10.5 H, Absolute Lymphocytes 2.4, Absolute Monocytes 1.1 H, Absolute Eosinophils 0.5, Absolute Basophils 0 01/21/18 0600: pH 7.45, pCO2 34 L, pO2 78 L, HCO3 24, ABG O2 Sat (Measured) 96.0, P-50 (Temp Corrected) N, Carboxyhemoglobin 0.6 L, O2 Concentration % .30, Respiration Rate 16, O2 Delivery Method VENT, Vent Mode A/C, Expiratory Pressure 5, Tidal Volume 450, Phlebotomy Draw Site RIGHT RADIAL 01/21/18 0510: Anion Gap 13, Estimated GFR > 60, Glucose 167 H, Calcium 8.9, Phosphorus 4.1, Magnesium 1.9, Total Bilirubin 0.4, AST 23, ALT 34, Albumin 3.4 L Assessment/Plan Assessment/Plan Assessment: 1. Nonsustained wide-complex tachycardia-the patient's rhythm strip is most suggestive of nonsustained ventricular tachycardia. At the moment, his potassium and magnesium are somewhat borderline. His left ventricular function is normal by recent echocardiogram. There is no evidence of ischemia. 2. Acute hypoxic respiratory failure 3. History of hypertension 4. Possible bronchitis/pneumonia; sputum culture positive for staph aureus 5. Pulmonary nodules 6. History of hypertension 7. Transient acute HFpEF, likely related to volume overload 8. Normocytic anemia 9. Hypoalbuminemia Recommendations:
[2018-01-23] VITALS (8 sets, daily range): BP systolic 126–171; BP diastolic 74–95
[2018-01-23 05:17] LABS: ABSOLUTE BASOPHIL COUNT 0 /CUMM (0.0-0.2); ABSOLUTE EOSINOPHIL COUNT 0.4 /CUMM (0.0-0.7); ABSOLUTE GRANULOCYTE CT 10.5 /CUMM (1.4-6.5); ABSOLUTE LYMPH COUNT 2.9 /CUMM (1.2-3.4); ABSOLUTE MONOCYTE COUNT 0.9 /CUMM (0.10-0.60); BASOPHIL % 0.3 % (0.0-2.0); EOSINOPHIL % 2.6 % (0-5); GRANULOCYTE % 71.1 % (42.2-75.2); HEMATOCRIT 36.6 % (42-52); MEAN CORPUSCULAR HGB 27.4 PG (27.0-31.0); MEAN CORPUSCULAR HGB CONC 32.2 G/DL (33.0-37.0); MEAN CORPUSCULAR VOLUME 85.1 FL (80.0-94.0); MEAN PLATELET VOLUME 7.6 FL (7.4-10.4); PLATELET COUNT 333 /CUMM (130-400); RBC DISTRIBUTION WIDTH 14.1 % (11.5-14.5); WHITE BLOOD CELL COUNT 14.7 /CUMM (4.8-10.8)
--- NOTE | 2018-01-23 07:20 | PN- Resident CRCU ---
Jase KU,Jayne 01/23/18 0720: Subjective HPI/CRCU Issues: Overnight issues: Patient continues to remain confused. Was alert and oriented this morning to time and place but not person. Denies any complaints this morning. Denies auditory/visual/tactile hallucinations however does at times appear to be having a conversation with no one in particular. Patient denies headache, tremor, sweats, chest pain, palpitations, shortness of breath, cough, abdominal pain, n/ v. Patient has a gardner in place that is draining. Patient has a rectal tube in place which continues to put soft, watery diarrhea. Vitals: MAXIMUM TEMPERATURE 99.2, heart rate 70s to 80s, sinus rhythm, respiration rate 16-30, blood pressure this morning 158/71, ranging from 140s to 160s over 70s to 90s, saturating between 92-96% on room air and CPAP at night Currently on IV Ativan drip at a rate of 8 Total intake 12133, output 40746 Accu-Cheks: 95, 110, 238, 140, 124 CIWA: 13, 13, 14, 9, 7, 8, 7, 7, 13 Labs: WBC 14.7 on steroids, H&H 11.8 and 36.6, platelets 333 Sodium 143, potassium 4.0, chloride 104, Bicarbonate 24, BUN 17, creatinine 0.7, glucose 106, calcium 9.5, phosphorus 3.5, magnesium 2.0, LFTs within normal limits Objective Vital Signs & I&O Last 8 Hrs of Vitals and I&O: Vital Signs Date Time Temp Pulse Resp B/P B/P Pulse O2 O2 Flow FiO2 Mean Ox Delivery Rate 01/23 0910 75 152/75 01/23 0910 75 152/73 01/23 0800 98.2 73 22 150/88 01/23 0800 98.2 73 22 150/88 99 Room Air 01/23 0600 81 30 165/91 01/23 0521 71 95 01/23 0400 97.4 71 15 171/90 01/23 0400 94 CPAP 01/23 0308 88 96 01/23 0200 91 25 152/87 Exam General Appearance: well developed/nourished, no apparent distress, awake, comfortable, obese, alert and oriented x 2, confused Head: atraumatic, normal appearance Respiratory: normal breath sounds, chest non-tender, no respiratory distress, lungs clear Cardiovascular: regular rate/rhythm Gastrointestinal: normal bowel sounds, soft, non-tender Extremities: no edema, left leg in cast Cranial Nerves: normal hearing, PERRL, slightly slurred speech, no tremor Skin: intact, warm/dry Skin Temp/Moisture Exam: Warm/Dry Weaning Parameters NIF: 35 Minute Volume: 9.7 Resp rate: 26 Vt: 350 Heart Rate: 110 Weaning Schedule Start Time: 1050 Minute Volume: 11.5 Resp Rate: 29 Vt: 450 Heart Rate: 110 End Time: 1205 Minute Volume: 12.1 Resp Rate: 26 Vt: 1089 Heart Rate: 100 Start Time: 1415 Minute Volume: 10.1 Resp Rate: 26 Vt: 401 Heart Rate: 86 End Time: 1420 Minute Volume: 13.8 Resp Rate: 38 Vt: 400 Heart Rate: 88 IV Drips IV Drips: IV Ativan Current Medications: Current Medications Sig/Dylan Start time Last Medication Dose Route Stop Time Status Admin Acetaminophen 650 MG Q6P PRN 01/15 2030 AC PO Acetylcysteine 2 ML BID 01/22 1445 DC INH Albuterol Sulfate 3 ML BID 01/16 1000 AC 01/22 INH 195 Budesonide 0.5 MG BID 01/17 1415 AC 01/22 INH 195 Carvedilol 6.25 MG BID 01/15 2200 AC 01/23 PO 0910 Enoxaparin Sodium 40 MG DAILY 01/16 1000 AC 01/23 SC 0910 Folic Acid 1 MG DAILY 01/19 1000 DC 01/22 PO 1024 Lorazepam 100 MG Q10H 01/22 1400 AC 01/23 Dextrose/Water 500 ML IV 0204 Lorazepam 100 MG Q7H 01/20 1100 DC 01/22 Dextrose/Water 500 ML IV 0609 Lorazepam 0 Q1P PRN 01/16 1315 AC 01/23 IV 0911 Losartan Potassium 100 MG DAILY 01/16 1000 AC 01/23 PO 0910 Magnesium Oxide 400 MG ONE ONE 01/23 0800 DC 01/23 PO 01/23 0801 0909 Methylprednisolone 40 MG DAILY 01/21 1000 DC 01/22 IV 1024 Montelukast Sodium 10 MG AT BEDTIME 01/15 2200 AC 01/22 PO 2115 Morphine Sulfate 2 MG Q6-PRN PRN 01/17 1030 AC 01/23 IV 0801 Multivitamins 1 TAB DAILY 01/19 1000 AC 01/23 PO 0911 Omeprazole 40 MG DAILY AC 01/23 0700 AC 01/23 PO 0647 Pantoprazole Sodium 40 MG DAILY 01/17 1000 DC 01/22 IV 1024 Prednisone 40 MG DAILY 01/23 1000 AC 01/23 PO 0911 Thiamine HCl 100 MG DAILY 01/19 1000 AC 01/23 PO 0911 Impression/Plan Impression/Problem List Impression: Patient is a 52 year old male past medical history of hypertension, ANDREW on CPAP at night presented to the ED with complains of worsening shortness of breath for the past 2 days. He reported using 2 pints of vodka/day Hospital Course: Mr Vitale was admitted with a diagnosis of acute hypoxic respiratory failure likely secondary tp viral bronchitis with possible pneumonia. He was started on oxygen 3L via NC, as well as IV Ceftriaxone and Azithromycin for pneumonia and a 5 day course of Prednisone 40mg. He was initially started on IV Ativan prn per JUAN DAVID. However, by yesterday evening, the patient was reported to be increasingly agitated and hence he was started on scheduled Ativan 2mg q6. On 01/18 addiction social worker at ~ 5AM, patient was reported to be increasingly agitated requiring frequent doses of IV Ativan. His respiratory status deteriorated with his sats in 80s on 8L of oxygen. He was thus transferred to the ICU for possible intubation and IV Ativan drip to treat for alcohol withdrawal. Respiratory: Acute Hypoxic Respiratory Failure likely secondary to bronchitis and ? underlying pneumonia Patient had increased respiratory effort and was intubated for impending respiratory failure on 01/18 and sedated with IV propofol which was weaned off on 01/19. Sedation was continued with IV Ativan. Patient was successfully extubated on 01/21. Patient's chest x-ray and blood gas are within normal limits. Patient is in no acute respiratory distress this morning saturating well on room air and CPAP at night. - Continue CPAP at night for ANDREW - TRC/DuoNeb - Continue PO prednisone at 40 mg daily for the next 2 days followed by tapering to 30 mg daily Lung nodules - Follow up CT Chest outpatient Infection: Bronchitis/Pneumonia Sputum culture is growing MRSA and patient is positive for MRSA in the nares. 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 Patient received a total of 5 days of IV antibiotics. Patient remains afebrile in no acute respiratory distress with decreasing requirement of oxygen and doing well off mechanical ventilation. Patient's leukocytosis is likely secondary to steroid use. Patient's chest x- ray and ABG are within normal limits. - Continue to monitor vitals and watch off antibiotics Cardiac: Run of VTACH - 8 beats on 01/19 EKG was done on 01/19, showed no change from previous EKG. Troponin <0.01. Discussed with cardiology, Dr. Boston. Per cardiology if repeated episodes, coreg can be increased. - electrolytes repleted today - continue to monitor - if further vtach, may increase dose of carvedilol - cardiology on board. appreciate recommendations History of HTN - continue coreg Diastolic Heart Failure Patient's echo showed mild diastolic dysfunction. During his ICU stay patient was fluid overloaded requiring daily IV Lasix. Patient today appears euvolemic with a normal chest x-ray. - continue to monitor I/O - continue daily weights - avoid excessive fluids Heme: Anemia. Likely 2/2 to iron deficiency anemia with low iron levels. Guiac positive stools on 01/20. H/H stable. - Continue to monitor h/h - Patient will need to follow up with GI for outpatient colonoscopy - Continue PO protonix Metabolic: Alcohol withdrawal - Continue IV Ativan drip and wean as tolerated - Monitor CIWA per protocol - Thiamine, Folic acid, MVM Ailementary: Formal swallow evaluation today after extubating on 01/21. Patient started on a heart healthy puree, nectar thick diet. Electrolytes repleted today Diarrhea: Patient has had multiple episodes of loose stools. - C.dif negative Neurology: AMS secondary to alcohol withdrawal: Sedated on IV ativan Wean off Ativan as tolerated Psychiatric Health Per psychiatry patient's medications have been held Psychiatry is to re-evaluate patient Further recommendations pending Nephrology: None DVT PPx: Lovenox Problem List: 1. Alcohol withdrawal 2. Leukocytosis 3. V-tach Pain Ratin Tomorrow's Labs & Rationales: cbc icu bundle Plan DVT/Prophylaxis: mechanical, pharmacological Royal Martinez MD 01/23/18 1241: Attending MD Review Statement Attending Sign Off Attending Cosign Statement: I have: examined this patient, reviewed aval EMR data, personally reviewd images, discussd w/resident/PA/PHYSICAL THERAPY COORDINATOR, discussed mgmt plan w/tulio, discussed mgmt plan w/CM, discussed mgmt plan w/pt, agreed w/resident/PA/PHYSICAL THERAPY COORDINATOR, amended to note. Other Findings: Impression 52 year old man * improved acute hypoxemic respiratory failure, likely to withdrawal symptoms requiring increased sedation * substance dependence, etoh dependence Plan Respiratory -steroid taper -po prednisone ID -monitor wbc, fevers CVS -ECHO reviewed -lasix -monitor hemodynamics -monitor ins/outs Heme -monitor cbc, coags, platelets Metabolic -ins/outs -monitor electrolytes -mvi, folate, thiamine Alimentary -diet/nutrition follow up Neuro -ciwa -taper ativan gtt -psych/crisis evaluation DVT prophylaxis at all times TTS 35 min
[2018-01-24] VITALS (8 sets, daily range): BP systolic 110–163; BP diastolic 68–96
--- NOTE | 2018-01-24 07:23 | PN- Resident CRCU ---
Jase KU,Jayne 01/24/18 0722: Subjective HPI/CRCU Issues: Patient remains confused however is calm at this time. Patient is alert and oriented to place and person. Patient denies any complaints at this time. Vitals: MAXIMUM TEMPERATURE 98.2, heart rate 60s to 93, sinus rhythm, respiration rate 18-29, blood pressure 140/83, saturating at 93% on room air, on CPAP at night Patient remains on IV Ativan drip at a rate of 7 Total intake 03413, output 04036 CIWA: 6, 9, 6, 0, 0, 10, 15, 13 Accu-Cheks: 122, 99, 193, 137 Labs: WBC 13.7, H&H 11.8 and 37.0, platelets 320 Sodium 144, potassium 3.6, chloride 105, bicarbonate 23, BUN and creatinine 19 and 0.9, glucose 86, calcium 9.6, phosphorus 4.6, magnesium 1.9, LFTs within normal limits Objective Vital Signs & I&O Last 8 Hrs of Vitals and I&O: Vital Signs Date Time Temp Pulse Resp B/P B/P Pulse O2 O2 Flow FiO2 Mean Ox Delivery Rate 01/24 1101 94 Room Air Room Air 01/24 1001 74 122/65 01/24 1001 75 122/65 01/24 0800 98.2 76 20 140/80 96 Room Air 01/24 0600 74 27 115/76 01/24 0520 70 93 01/24 0400 97.4 66 26 117/68 01/24 0400 93 CPAP 01/24 0217 66 92 01/24 0200 65 26 110/68 01/24 0018 70 92 01/24 0000 97.2 70 18 153/77 01/24 0000 97.2 70 18 153/77 93 CPAP 01/24 0000 93 CPAP 01/23 2209 86 96 01/23 2200 82 26 151/88 01/23 2122 88 156/83 01/23 2119 95 Room Air 01/24 2000 97.6 72 26 160/95 01/24 2000 95 Nasal 1.0L Cannula 01/23 1600 93 Nasal 2.0L Cannula 01/23 1556 97.7 78 24 126/80 93 Room Air Intake & Output 01/24 1600 01/24 0800 01/24 0000 Intake Total 8374 079 5588 Output Total 650 400 700 Balance 590 332 335 Intake, IV 520 612 615 Intake, Oral 720 120 420 Number 1 1 0 Bowel Movements Output, Urine 650 400 700 Intake & Output 01/24 1600 Intake Total 1240 Output Total 650 Balance 590 Intake, IV 520 Intake, Oral 720 Number 1 Bowel Movements Output, Urine 650 Exam General Appearance: well developed/nourished, alert, awake, obese Respiratory: normal breath sounds, chest non-tender, no respiratory distress, lungs clear Cardiovascular: regular rate/rhythm Gastrointestinal: normal bowel sounds, soft, non-tender Extremities: normal inspection, no edema, left leg with cast Cranial Nerves: normal hearing, normal speech, PERRL Weaning Parameters NIF: 35 Minute Volume: 9.7 Resp rate: 26 Vt: 350 Heart Rate: 110 Weaning Schedule Start Time: 1050 Minute Volume: 11.5 Resp Rate: 29 Vt: 450 Heart Rate: 110 End Time: 1205 Minute Volume: 12.1 Resp Rate: 26 Vt: 1089 Heart Rate: 100 Start Time: 1415 Minute Volume: 10.1 Resp Rate: 26 Vt: 401 Heart Rate: 86 End Time: 1420 Minute Volume: 13.8 Resp Rate: 38 Vt: 400 Heart Rate: 88 Current Medications: Current Medications Sig/Dylan Start time Last Medication Dose Route Stop Time Status Admin Acetaminophen 650 MG Q6P PRN 01/15 2030 AC 01/24 PO 1431 Albuterol Sulfate 3 ML BID 01/16 1000 AC 01/24 INH 1057 Atorvastatin Calcium 20 MG DAILY 01/24 1000 AC 01/24 PO 1220 Budesonide 0.5 MG BID 01/17 1415 DC 01/24 INH 1057 Budesonide/ 2 PUF BID 01/24 2200 AC Formoterol Fumarate INH Carvedilol 6.25 MG BID 01/15 2200 AC 01/24 PO 1001 Diphenhydramine HCl 25 MG Q6P PRN 01/23 1200 AC 01/23 IV 1759 Enoxaparin Sodium 40 MG DAILY 01/16 1000 AC 01/24 SC 1001 Lidocaine 1 PAT DAILY PRN 01/24 1430 AC EXT Lorazepam 100 MG Q14H 01/24 1130 AC 01/24 Dextrose/Water 500 ML IV 1109 Lorazepam 100 MG Q11H 01/23 1230 DC 01/24 Dextrose/Water 500 ML IV 01/24 1129 0001 Lorazepam 0 Q1P PRN 03/20 1315 AC 01/23 IV 0911 Losartan Potassium 100 MG DAILY 01/16 1000 AC 01/24 PO 1001 Magnesium Oxide 400 MG ONE ONE 01/24 1015 DC 01/24 PO 01/24 1016 1220 Montelukast Sodium 10 MG AT BEDTIME 01/15 2200 AC 01/23 PO 2122 Morphine Sulfate 2 MG Q4 HRS NEEDED PRN 01/23 1200 AC 01/24 IV 1222 Multivitamins 1 TAB DAILY 01/19 1000 AC 01/24 PO 1001 Nicotine 7 MG DAILY 01/24 1354 AC 01/24 TOP 1434 Omeprazole 40 MG DAILY AC 01/23 0700 AC 01/24 PO 0655 Polyethylene Glycol 17 GM DAILY 01/24 1000 CAN PO Potassium Chloride 40 MEQ ONCE ONE 01/24 1015 DC 01/24 PO 01/24 1016 1220 Prednisone 30 MG DAILY 01/25 1000 AC PO Prednisone 40 MG DAILY 01/23 1000 DC 01/24 PO 1001 Thiamine HCl 500 MG TID 01/23 1000 AC 01/24 Sodium Chloride 250 ML IV 01/25 2213 1109 Impression/Plan Impression/Problem List Impression: Patient is a 52 year old male past medical history of hypertension, ANDREW on CPAP at night presented to the ED with complains of worsening shortness of breath for the past 2 days. He reported using 2 pints of vodka/day Hospital Course: Mr Vitale was admitted with a diagnosis of acute hypoxic respiratory failure likely secondary tp viral bronchitis with possible pneumonia. He was started on oxygen 3L via NC, as well as IV Ceftriaxone and Azithromycin for pneumonia and a 5 day course of Prednisone 40mg. He was initially started on IV Ativan prn per JUAN DAVID. However, by yesterday evening, the patient was reported to be increasingly agitated and hence he was started on scheduled Ativan 2mg q6. 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 His respiratory status deteriorated with his sats in 80s on 8L of oxygen. He was thus transferred to the ICU for possible intubation and IV Ativan drip to treat for alcohol withdrawal. Respiratory: Acute Hypoxic Respiratory Failure likely secondary to bronchitis and ? underlying pneumonia Patient had increased respiratory effort and was intubated for impending respiratory failure on 01/18 and sedated with IV propofol which was weaned off on 01/19. Sedation was continued with IV Ativan. Patient was successfully extubated on 01/21. Patient's chest x-ray and blood gas are within normal limits. Patient is in no acute respiratory distress this morning saturating well on room air and CPAP at night. - Continue CPAP at night for ANDREW - TRC/DuoNeb - Continue PO prednisone with a taper of 10mg every 2 days. - Symbicort BID Lung nodules - Follow up CT Chest outpatient Infection: Bronchitis/Pneumonia Sputum culture is growing MRSA and patient is positive for MRSA in the nares. 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 Patient received a total of 5 days of IV antibiotics. Patient remains afebrile in no acute respiratory distress with decreasing requirement of oxygen and doing well off mechanical ventilation. Patient's leukocytosis is likely secondary to steroid use. Patient's chest x- ray and ABG are within normal limits. - Continue to monitor vitals and watch off antibiotics Cardiac: Run of VTACH - 8 beats on 01/19 EKG was done on 01/19, showed no change from previous EKG. Troponin <0.01. Discussed with cardiology, Dr. Boston. Per cardiology if repeated episodes, coreg can be increased. - electrolytes repleted today - continue to monitor - if further vtach, may increase dose of carvedilol - cardiology on board. appreciate recommendations History of HTN - continue coreg Diastolic Heart Failure Patient's echo showed mild diastolic dysfunction. During his ICU stay patient was fluid overloaded requiring daily IV Lasix. Patient today appears euvolemic with a normal chest x-ray. - continue to monitor I/O - continue daily weights - avoid excessive fluids Heme: Anemia. Likely 2/2 to iron deficiency anemia with low iron levels. Guiac positive stools on 01/20. H/H stable. - Continue to monitor h/h - Patient will need to follow up with GI for outpatient colonoscopy - Continue PO protonix Metabolic: Alcohol withdrawal - Continue IV Ativan drip and wean as tolerated - Monitor CIWA per protocol - Thiamine, Folic acid, MVM Ailementary: Formal swallow evaluation today after extubating on 01/21. Patient started on a heart healthy puree, nectar thick diet. Re-evaluated today. Patient's diet changed to puree with thin liquids. Electrolytes repleted today Diarrhea: Patient has had multiple episodes of loose stools. Continues to have loose stool. Frequency has decreased. - C.dif negative Neurology: AMS and agitation 2/2 alcohol withdrawal and back pain: Sedated on IV ativan Wean off Ativan as tolerated Morphine PRN, Lidocaine patch, Tylenol PRN Psychiatric Health Per psychiatry patient's medications have been held Psychiatry is to re-evaluate patient Further recommendations pending Tobacco use Patient reports tobacco use Nicotine patch given Nephrology: None DVT PPx: Lovenox Problem List: 1. Alcohol withdrawal 2. V-tach Pain Ratin Tomorrow's Labs & Rationales: cbc icu bundle Plan DVT/Prophylaxis: mechanical, pharmacological Royal Martinez MD 01/24/18 1202: Attending MD Review Statement Attending Sign Off Attending Cosign Statement: I have: examined this patient, reviewed [employer] EMR data, personally reviewd images, discussd w/resident/PA/SCHOOL LEADER, discussed mgmt plan w/tulio, discussed mgmt plan w/CM, discussed mgmt plan w/pt, agreed w/resident/PA/SCHOOL LEADER, amended to note. Other Findings: Impression 52 year old man * resolving acute hypoxemic respiratory failure, likely to withdrawal symptoms requiring increased sedation * substance dependence, etoh dependence Plan -taper prednisone by 10mg every 2 days -dc pulmicort, begin symbicort 160/4.5 2 puffs BID with rinsing of the mouth -f/u crisis/psych recommendations -mvi, folate, thiamine -ciwa monitoring -taper ativan gtt, begin and taper librium DVT prophylaxis at all times TTS 35 min
[2018-01-24 08:06] LABS: ABSOLUTE BASOPHIL COUNT 0 /CUMM (0.0-0.2); ABSOLUTE EOSINOPHIL COUNT 0.6 /CUMM (0.0-0.7); ABSOLUTE GRANULOCYTE CT 8.8 /CUMM (1.4-6.5); ABSOLUTE LYMPH COUNT 3.3 /CUMM (1.2-3.4); BASOPHIL % 0.4 % (0.0-2.0); EOSINOPHIL % 4.6 % (0-5); MEAN CORPUSCULAR HGB 27.2 PG (27.0-31.0); MEAN CORPUSCULAR VOLUME 85.1 FL (80.0-94.0); MEAN PLATELET VOLUME 7.7 FL (7.4-10.4); PLATELET COUNT 320 /CUMM (130-400); RBC DISTRIBUTION WIDTH 14.6 % (11.5-14.5); RED BLOOD CELL CT 4.35 /CUMM (4.70-6.10); WHITE BLOOD CELL COUNT 13.7 /CUMM (4.8-10.8)
[2018-01-24] MEDS ORDERED: ATORVASTATIN CA20 M1 PO (09:50)
--- NOTE | 2018-01-24 16:38 | Cons- Psychiatry ---
Psychiatric Consult Date of Consult: 01/24/18 Reason for Consult: "Psychiatric medication adjustment" History of Present Illness: 52 , male presented to the ED 01/15/18 with a CC of worsening SOB. PMH includes hypertension, ANDREW on CPAP at night. He also reports he drinks 2 pints of vodka daily, He is currently on a lorazepam drip for delirium tremens, which is running at 7 mg/hour. We had previously discussed psychotropic medication management with the team. He has been delirious, and this is the first opportunity we have had to talk with him, although nursing reports he was alert and oriented yesterday. Colateral: The patient's spouse, Yarely, is present and supportive. She reports that the patient has been drinking for about 2 years, and that subsequent to a concussion last year, he was supposed to have an appointment with a neuropsychiatrist today , and was also referred to a neuro-glass blower,; that appointment is not made yet. He reports that the patient was treated for depression, and he has never had a suicide attempt. She reports that the patient goes to [facility] in [place], and is prescribed Adderall, in the same unknown medication that Dr. Tamayo had started. The patient takes gabapentin strictly for pain. She offers the following timeline: 2009-patient hurt his left foot and tore a tendon which has been healing. He was started on opiate pain medications. 2013-the patient was enrolled in [facility] for opiate withdrawal and detoxification, and was off opiates for several years. At this time, the patient was started on Wellbutrin for depression. He was not drinking alcohol at this time. Wellbutrin had been continued by Dr. Mendel Vasquez, PCP. 05/08/2017-the patient fell and slept in his bare feet on the kitchen striking his head on the floor. The reports that he had blue lips, he was convulsing, foaming at the mouth, and speaking gibberish for about 15 seconds, after which the police arrived. The patient was transported to [facility] emergency department, where he was treated and released for a reported mild concussion. The spouse reports that in the wake of this event, the patient began to experience severe headaches and forgetfulness, and she stopped allowing him to drive. 07/25/2027-the patient fell and broke the same left foot, which she witnessed. There was no head strike. 10/17/2017 - the patient's primary care provider, Dr. Mendel Vasquez of [facility], sent the patient to [facility], were he had an MRI. From there he was referred to [facility], where he was treated. He is referred to the neuropsychiatrist, mentioned above and also recommended to see neuro- glass blower for vision problems. October 2017-the patient suffered another seizure. He was transported in [facility] which said that this seizure was in the setting of alcohol detoxification. The spouse reports they gave him taper schedule of medication, and he was sent home. She reports the patient did not take the medications. 12/29/2017-the patient had surgery on his left foot with Dr. Tamayo, who is prescribing morphine and an unknown medication (which the spouse will bring in tomorrow.) Allergies: Coded Allergies: Penicillins (UNKNOWN 01/15/18) Current Medications: Current Medications Sig/Dylan Start time Last Medication Dose Route Stop Time Status Admin Acetaminophen 650 MG Q6P PRN 01/15 2030 AC 01/24 PO 1431 Albuterol Sulfate 3 ML BID 01/16 1000 AC 01/24 INH 1057 Atorvastatin Calcium 20 MG DAILY 01/24 1000 AC 01/24 PO 1220 Budesonide 0.5 MG BID 01/17 1415 DC 01/24 INH 1057 Budesonide/ 2 PUF BID 01/24 2200 AC Formoterol Fumarate INH Carvedilol 6.25 MG BID 01/15 2200 AC 01/24 PO 1001 Diphenhydramine HCl 25 MG Q6P PRN 01/23 1200 AC 01/24 IV 1534 Enoxaparin Sodium 40 MG DAILY 01/16 1000 AC 01/24 SC 1001 Lidocaine 1 PAT DAILY PRN 01/24 1430 AC 01/24 EXT 1533 Lorazepam 100 MG Q14H 01/24 1130 AC 01/24 Dextrose/Water 500 ML IV 1109 Lorazepam 100 MG Q11H 01/23 1230 DC 01/24 Dextrose/Water 500 ML IV 01/24 1129 0001 Lorazepam 0 Q1P PRN 01/16 1315 AC 01/23 IV 0911 Losartan Potassium 100 MG DAILY 01/16 1000 AC 01/24 PO 1001 Magnesium Oxide 400 MG ONE ONE 01/24 1015 DC 01/24 PO 01/24 1016 1220 Montelukast Sodium 10 MG AT BEDTIME 01/15 2200 AC 01/23 PO 2122 Morphine Sulfate 2 MG Q4 HRS NEEDED PRN 01/23 1200 AC 01/24 IV 1222 Multivitamins 1 TAB DAILY 01/19 1000 AC 01/24 PO 1001 Nicotine 7 MG DAILY 01/24 1354 AC 01/24 TOP 1434 Omeprazole 40 MG DAILY AC 01/23 0700 AC 01/24 PO 0655 Polyethylene Glycol 17 GM DAILY 01/24 1000 CAN PO Potassium Chloride 40 MEQ ONCE ONE 01/24 1015 DC 01/24 PO 01/24 1016 1220 Prednisone 30 MG DAILY 01/25 1000 AC PO Prednisone 40 MG DAILY 01/23 1000 DC 01/24 PO 1001 Thiamine HCl 500 MG TID 01/23 1000 AC 01/24 Sodium Chloride 250 ML IV 01/25 2213 1534 Past History Past Medical History Neurological: SEIZURE x 1 S/P HEAD INJ EENT: NONE Cardiovascular: hypertension Respiratory: CHRONIC BRONCHITIS SINCE Gastrointestinal: umbilical hernia Hepatic: NONE Renal: NONE Musculoskeletal: disk herniation, COMPOUND FX L ANKLE BONE SPURS IN NECK/BACK Psychiatric: alcohol dependence, depression Endocrine: NONE Blood Disorders: NONE Cancer(s): NONE CHOKE SETTER/Reproductive: NONE Past Surgical History Surgical History: surgical repair of left foot on 12/29/2017 Psychosocial History Strengths/Capabilities: Supportive spouse Physical Limitations (Interventions): Currently not ambulatory due to delirium and restraints Psychiatric Treatment History Psych Treatment Psychiatric Treatment Yes Inpatient Treatment Yes Outpatient Treatment Yes Location of Treatment initial treatment for depression and opiate dependence at [facility] Reason for Treatment Depression Dates of Treatment 2013 until now Response to Treatment Unknown Diagnosis: Alcohol use disorder, severe Depression disorder, unspecified History of concussion, with memory deficit History of opiate use disorder Risk Factors: / hospitalized, substance abuse, male, limited support Substance Use/Abuse History Drug Use/Abuse Substances Used/Abused Yes Substance Used/Abused Alcohol First Use 2015 Last Used prior to admission How much used/taken 1 pint of liquor How often daily For how long 2 years Route of use oral Substance Abuse Treatment Substance Abuse Treatment Past Substance Abuse TX Yes Inpatient Treatment Yes Outpatient Treatment No Location of Treatment [facility] Reason for Treatment Opiate use disorder Dates of Treatment 2013 Response to Treatment Improved, per his spouse Assessment/Plan Mental Status Orientation: the patient is oriented to person, knows he is in the hospital, month, but not day, date, year Affect: Labile Speech: Slurred Neuro-vegetative: Sleep Disturbance Mental Status Exam: The patient is lying in bed, mildly agitated, but able to engage partially in an interview. He is oriented to person, knows he's had a hospital, and month. He is not oriented to day, date or year. He denies current visual or auditory or tactile hallucinations, and reports that his is cheating on him. [Note: Nursing reports that the patient has been reporting visual hallucinations today, but does not always admit them. Also, his spouse was in the room, and does not know where the delusional beliefs that she is cheating on him arises] The patient denies suicidal or homicidal ideation. Lab Results: Laboratory Tests 01/24 0650 Chemistry Sodium (137 - 145 mmol/L) 144 Potassium (3.5 - 5.1 mmol/L) 3.6 Chloride (98 - 107 mmol/L) 105 Carbon Dioxide (22 - 30 mmol/L) 23 Anion Gap (5 - 16) 16 BUN (9 - 20 mg/dL) 19 Creatinine (0.7 - 1.2 mg/dL) 0.9 Estimated GFR (>60 ml/min) > 60 Glucose (65 - 99 mg/dL) 86 Calcium (8.4 - 10.2 mg/dL) 9.6 Phosphorus (2.5 - 4.5 mg/dL) 4.6 H Magnesium (1.6 - 2.3 mg/dL) 1.9 Total Bilirubin (0.2 - 1.3 mg/dL) 0.6 AST (17 - 59 U/L) 34 ALT (21 - 72 U/L) 33 Albumin (3.5 - 5.0 g/dL) 3.6 Hematology CBC w Diff NO MAN DIFF REQ WBC (4.8 - 10.8 /CUMM) 13.7 H RBC (4.70 - 6.10 /CUMM) 4.35 L Hgb (14.0 - 18.0 G/DL) 11.8 L Hct (42 - 52 %) 37.0 L MCV (80.0 - 94.0 FL) 85.1 MCH (27.0 - 31.0 PG) 27.2 MCHC (33.0 - 37.0 G/DL) 32.0 L RDW (11.5 - 14.5 %) 14.6 H Plt Count (130 - 400 /CUMM) 320 MPV (7.4 - 10.4 FL) 7.7 Gran % (42.2 - 75.2 %) 64.0 Lymphocytes % (20.5 - 51.1 %) 24.0 Monocytes % (1.7 - 9.3 %) 7.0 Eosinophils % (0 - 5 %) 4.6 Basophils % (0.0 - 2.0 %) 0.4 Absolute Granulocytes (1.4 - 6.5 /CUMM) 8.8 H Absolute Lymphocytes (1.2 - 3.4 /CUMM) 3.3 Absolute Monocytes (0.10 - 0.60 /CUMM) 1.0 H Absolute Eosinophils (0.0 - 0.7 /CUMM) 0.6 Absolute Basophils (0.0 - 0.2 /CUMM) 0 Diffential Diagnosis: Alcohol use disorder, severe Depression disorder, unspecified History of concussion, with memory deficit History of opiate use disorder Impression: Per report, the patient had been on 10 mg/h of lorazepam drip yesterday, and is now on 7 mg/h. He is currently having some behavioral problems on this reduced dosing. In the future, we would recommend decreasing the dosing by no more than 20% per day. Future decreases should be no more than 1.5 mg/h per day. After 24 hours on 7 mg/h, he could progress to 5.5 mg/h for 24 hours, then 4 mg/h for 24 hours, then 2.5 mg/h for 24 hours then 1 mg/h, then 0.5 mg/h. The last dosing would be the same is 12 mg in 24 hours. His oral dosing should start at 10 mg in 24 hours. We would prefer that lorazepam be used for this, as it can be the same medication that is used for the as needed medication, but certainly chlordiazepoxide could be used for the PO scheduled medication. As needed lorazepam should be made available per the CIWA scoring when the lorazepam drip has concluded. If the lorazepam drip is decreased to quickly, the patient will be in completely detoxed, possibly putting him at risk for decompensation and seizures. Provisional Treatment Plan: 1. Continue lorazepam IV drip at the current 7 mg/h for 24 hours, then reduce per the discussion above. 2. For severe or dangerous agitation, or disturbing hallucinations, please consider haloperidol 1 mg PO, IM if the patient is unable to take PO, every 12 hours as needed. Hold for oversedation. Hold for respiratory depression. Hold for hypokalemia. Hold for hypomagnesemia. Hold for cardiac arrhythmia or QTC greater than 475 ms. 3. Please continue daily thiamine, folic acid and multivitamin. 4. Please reduce the amount of opiates as much as possible, recognizing his previous dependence on them. We understand that requires pain management due to recent surgery to his left foot. 5. Please use redirection in soft restraints as much is possible, and chemical restraints such as haloperidol, as a last resort. We will continue to follow along with you.
[2018-01-25] VITALS (12 sets, daily range): BP systolic 101–157; BP diastolic 61–85
[2018-01-25 04:38] LABS: ABSOLUTE BASOPHIL COUNT 0 /CUMM (0.0-0.2); ABSOLUTE EOSINOPHIL COUNT 0.3 /CUMM (0.0-0.7); ABSOLUTE GRANULOCYTE CT 9.3 /CUMM (1.4-6.5); ABSOLUTE LYMPH COUNT 2.8 /CUMM (1.2-3.4); ABSOLUTE MONOCYTE COUNT 0.8 /CUMM (0.10-0.60); BASOPHIL % 0.3 % (0.0-2.0); EOSINOPHIL % 2.6 % (0-5); GRANULOCYTE % 69.9 % (42.2-75.2); HEMATOCRIT 37.1 % (42-52); MEAN CORPUSCULAR HGB 26.7 PG (27.0-31.0); MEAN CORPUSCULAR HGB CONC 31.3 G/DL (33.0-37.0); MEAN CORPUSCULAR VOLUME 85.3 FL (80.0-94.0); MEAN PLATELET VOLUME 7.9 FL (7.4-10.4); PLATELET COUNT 302 /CUMM (130-400); RBC DISTRIBUTION WIDTH 14.6 % (11.5-14.5); RED BLOOD CELL CT 4.34 /CUMM (4.70-6.10); WHITE BLOOD CELL COUNT 13.3 /CUMM (4.8-10.8)
--- NOTE | 2018-01-25 07:21 | PN- Resident CRCU ---
See Addendum Subjective HPI/CRCU Issues: Overnight issues: Patient had no acute events overnight. Patient this morning was calm and oriented. Answers all questions. Restraints have been removed this morning. Patient denies any chest pain, shortness of breath, abdominal pain, nausea/ vomiting, tremors, auditory/tactile/visual hallucinations, headache, sweating. Patient reports chronic back pain. Patient's IV Ativan drip is at 7. We'll decrease today to 5.5 starting this morning. CIWA: 3, 2, 3, 8, 4, 6, 11 Accu-Cheks: 119, 187, 1:30, 122, 99 Guaiac: Negative Vitals: MAXIMUM TEMPERATURE 98.6, heart rate 70s to 80s, sinus rhythm, respiration rate 16-32, blood pressure 119/64 ranging from 110s to 160s over 60s to 90s, saturating between 93 to 96% on room air. Patient is on CPAP at night. Total intake 27,428 and output:30,185 Labs: WBC 13.3, H&H 11.6 and 37.1, platelet count 302 Sodium 144, potassium 3.7, chloride 107, bicarbonate 21, BUN 16, creatinine 0.7, glucose 100, calcium 9.3, phosphorus 3.8, magnesium 1.9, LFTs within normal limits Electrolytes replaced this morning. Objective Vital Signs & I&O Last 8 Hrs of Vitals and I&O: Vital Signs Date Time Temp Pulse Resp B/P B/P Pulse O2 O2 Flow FiO2 Mean Ox Delivery Rate 01/25 0600 70 16 112/61 01/25 0544 74 94 01/25 0400 97.0 70 20 121/64 01/25 0400 95 CPAP 01/25 0255 71 92 01/25 0200 73 24 145/78 01/25 0022 77 92 Exam General Appearance: well developed/nourished, no apparent distress, alert, awake , comfortable, obese Head: atraumatic, normal appearance Respiratory: normal breath sounds, chest non-tender, no respiratory distress, quiet respiration, lungs clear Cardiovascular: regular rate/rhythm Gastrointestinal: normal bowel sounds, non-tender Extremities: no edema, left leg with cast Cranial Nerves: normal hearing, normal speech, PERRL IV Drips IV Drips: IV Ativan Current Medications: Current Medications Sig/Dylan Start time Last Medication Dose Route Stop Time Status Admin Acetaminophen 650 MG .STK-MED ONE 01/25 2024 DC PO 01/24 202 Acetaminophen 650 MG .STK-MED ONE 01/24 1428 DC PO 01/24 1429 Acetaminophen 650 MG Q6P PRN 01/15 2030 AC 01/24 PO 1431 Albuterol Sulfate 3 ML BID 01/16 1000 AC 01/25 INH 0911 Atorvastatin Calcium 20 MG DAILY 01/24 1000 AC 01/25 PO 0842 Budesonide 0.5 MG BID 01/17 1415 DC 01/24 INH 1057 Budesonide/ 2 PUF BID 01/24 2200 AC 01/25 Formoterol Fumarate INH 0843 Carvedilol 6.25 MG BID 01/15 2200 AC 01/25 PO 0843 Diphenhydramine HCl 25 MG Q6P PRN 01/23 1200 AC 01/24 IV 1534 Enoxaparin Sodium 40 MG DAILY 01/16 1000 AC 01/25 SC 0843 Folic Acid 1 MG DAILY 01/25 1000 AC 01/25 PO 0842 Haloperidol 1 MG Q12P PRN 01/24 1745 AC 01/24 IM 1735 Lidocaine 1 PAT DAILY PRN 01/24 1430 AC 01/24 EXT 1533 Lorazepam 100 MG Q18H 01/25 1500 AC Dextrose/Water 500 ML IV Lorazepam 100 MG Q14H 01/24 1130 AC 01/25 Dextrose/Water 500 ML IV 01/25 1459 0142 Lorazepam 100 MG Q11H 01/23 1230 DC 01/24 Dextrose/Water 500 ML IV 01/24 1129 0001 Lorazepam 0 Q1P PRN 01/16 1315 AC 01/23 IV 0911 Losartan Potassium 100 MG DAILY 01/16 1000 AC 01/25 PO 0843 Montelukast Sodium 10 MG AT BEDTIME 01/15 2200 AC 01/24 PO 2242 Morphine Sulfate 2 MG Q6-PRN PRN 01/25 0830 AC 01/25 IV 0857 Morphine Sulfate 2 MG Q4 HRS NEEDED PRN 01/23 1200 DC 01/24 IV 2238 Multivitamins 1 TAB DAILY 01/19 1000 AC 01/25 PO 0842 Nicotine 7 MG DAILY 01/24 1354 AC 01/24 TOP 1434 Omeprazole 40 MG DAILY AC 01/23 0700 AC 01/25 PO 0727 Potassium Chloride 30 MEQ ONCE ONE 01/25 0815 DC 01/25 PO 01/25 0816 0844 Prednisone 30 MG DAILY 01/25 1000 AC 01/25 PO 0842 Prednisone 40 MG DAILY 01/23 1000 DC 01/24 PO 1001 Thiamine HCl 500 MG TID 01/23 1000 AC 01/25 Sodium Chloride 250 ML IV 01/25 2213 1001 Zinc Oxide 1 ARMIDA BID 01/24 2200 AC 01/25 TOP 0844 Impression/Plan Impression/Problem List Impression: Patient is a 52 year old male past medical history of hypertension, ANDREW on CPAP at night presented to the ED with complains of worsening shortness of breath for the past 2 days. He reported using 2 pints of vodka/day Hospital Course: Mr Vitale was admitted with a diagnosis of acute hypoxic respiratory failure likely secondary tp viral bronchitis with possible pneumonia. He was started on oxygen 3L via NC, as well as IV Ceftriaxone and Azithromycin for pneumonia and a 5 day course of Prednisone 40mg. He was initially started on IV Ativan prn per JUAN DAVID. However, by yesterday evening, the patient was reported to be increasingly agitated and hence he was started on scheduled Ativan 2mg q6. On 01/18 shadow graph weight operator at ~ 5AM, patient was reported to be increasingly agitated requiring frequent doses of IV Ativan. His respiratory status deteriorated with his sats in 80s on 8L of oxygen. He was thus transferred to the ICU for possible intubation and IV Ativan drip to treat for alcohol withdrawal. Respiratory: Acute Hypoxic Respiratory Failure likely secondary to bronchitis and ? underlying pneumonia Patient had increased respiratory effort and was intubated for impending respiratory failure on 01/18 and sedated with IV propofol which was weaned off on 01/19. Sedation was continued with IV Ativan. Patient was successfully extubated on 01/21. Patient's chest x-ray and blood gas are within normal limits. Patient is in no acute respiratory distress this morning saturating well on room air and CPAP at night. - Continue CPAP at night for ANDREW - TRC/DuoNeb - Patient is currently on prednisone 30mg. Continue PO prednisone with a taper of 10mg every 2 days. - Symbicort BID Lung nodules - Follow up CT Chest outpatient Infection: Bronchitis/Pneumonia Sputum culture is growing MRSA and patient is positive for MRSA in the nares. 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 Patient received a total of 5 days of IV antibiotics. Patient remains afebrile in no acute respiratory distress with decreasing requirement of oxygen and doing well off mechanical ventilation. Patient's leukocytosis is likely secondary to steroid use. Patient's chest x- ray and ABG are within normal limits. - Continue to monitor vitals and watch off antibiotics Cardiac: Run of VTACH - 8 beats on 01/19 EKG was done on 01/19, showed no change from previous EKG. Troponin <0.01. Discussed with cardiology, Dr. Boston. Per cardiology if repeated episodes, coreg can be increased. - electrolytes repleted today - continue to monitor - if further vtach, may increase dose of carvedilol - cardiology on board. appreciate recommendations History of HTN - continue coreg Diastolic Heart Failure Patient's echo showed mild diastolic dysfunction. During his ICU stay patient was fluid overloaded requiring daily IV Lasix. Patient today appears euvolemic with a normal chest x-ray. - continue to monitor I/O - continue daily weights - avoid excessive fluids Heme: Anemia. Likely 2/2 to iron deficiency anemia with low iron levels. Guiac positive stools on 01/20. H/H stable. - Continue to monitor h/h - Patient will need to follow up with GI for outpatient colonoscopy - Continue PO protonix Metabolic: Alcohol withdrawal - Continue IV Ativan drip and wean as tolerated - Monitor CIWA per protocol - Thiamine, Folic acid, MVM Ailementary: Formal swallow evaluation today after extubating on 01/21. Patient started on a heart healthy puree, nectar thick diet. Re-evaluated on 01/24. Patient's diet changed to puree with thin liquids. Electrolytes repleted today Diarrhea: Patient has had multiple episodes of loose stools. Continues to have loose stool. Frequency has decreased. - C.dif negative Neurology: AMS and agitation 2/2 alcohol withdrawal and back pain: Improving today. - Continue to wean off Ativan per psychiatry. - Patient will be on IV Ativan at a rate of 5.5 today and decrease by 1.5 per day as patient tolerates. - Morphine PRN- decreased the frequency today , Lidocaine patch, Tylenol PRN Psychiatric Health - Per psychiatry patient's medications have been held - Haldol PRN for agitation (monitor QTc. Do not give for QTc> 475) - Patient will need to follow up with psychiatry outpatient - Social work consult for outpatient rehab, once patient is more stable and coherent Tobacco use Patient reports tobacco use - Nicotine patch given Nephrology: None Podiatry: Patient is status post fusion surgery of his left foot currently in a cast. Spoke to (traffic rate clerk, office: [phone], [place]: [phone]). Patient is nonweight bearing on the left leg. - Patient will need to follow up with Dr. Tamayo upon discharge to change the cast - Patient is to remain nonweight bearing on the left foot/leg. - Will have patient out of bed to chair with assistance - PT eval DVT PPx: Lovenox Problem List: 1. Alcohol withdrawal 2. Hypoxia 3. Acute bronchitis Pain Ratin Pain Location: back Tomorrow's Labs & Rationales: cbc icu bundle Plan DVT/Prophylaxis: mechanical, pharmacological
--- NOTE | 2018-01-25 13:45 | Incdntl Nt Psy ---
Incidental Note Notation: The patient is alert, eating lunch with the assistance of his nurse. He is calm and cooperative. He is oriented to person, place, month and year, but not day. He denies current AH or VH, but reported earlier that there were "some guys downstairs." He denies SI or HI. The patient is out of soft restraints. Delirium is waning. Continue the lorazepam taper protocl discussed with the medica team, and laid out in my note of 01/24/18. The patient's , Krysten, brought in the name of the other medication he was taking at home: hydroxyzine pamoate 50 mg 4X/day. We do not recommend starting this at this time. We also feel that the patient should not restart bupropion again, due to alcohol use and history of seizure. We can discuss appropriate medications with him when he comes to the IOP program. Please ask social work to asist with this appointment when he is clear. He does not need his Adderall at this time, as it may add to his anxiety and agitation. He should be evaluated for the appropriateness at [facility]. We will continue to follow along.
[2018-01-26] VITALS (8 sets, daily range): BP systolic 131–168; BP diastolic 60–100
[2018-01-26 04:41] LABS: ABSOLUTE BASOPHIL COUNT 0 /CUMM (0.0-0.2); ABSOLUTE EOSINOPHIL COUNT 0.5 /CUMM (0.0-0.7); ABSOLUTE GRANULOCYTE CT 9.7 /CUMM (1.4-6.5); ABSOLUTE MONOCYTE COUNT 0.9 /CUMM (0.10-0.60); BASOPHIL % 0.3 % (0.0-2.0); EOSINOPHIL % 3.6 % (0-5); GRANULOCYTE % 68.4 % (42.2-75.2); MEAN CORPUSCULAR HGB 27.1 PG (27.0-31.0); MEAN CORPUSCULAR VOLUME 84.7 FL (80.0-94.0); MEAN PLATELET VOLUME 7.9 FL (7.4-10.4); PLATELET COUNT 271 /CUMM (130-400); RED BLOOD CELL CT 4.37 /CUMM (4.70-6.10); WHITE BLOOD CELL COUNT 14.2 /CUMM (4.8-10.8)
--- NOTE | 2018-01-26 07:36 | PN- Resident CRCU ---
Jase KU,Jayne 01/26/18 0735: Subjective HPI/CRCU Issues: Overnight issues: Patient overnight became agitated and started pulling at lines. Patient required bilateral upper extremity restraints. Patient today is alert and oriented. Denies any complaints at this time. Vitals: MAXIMUM TEMPERATURE 98.4, heart rate 60s to 80s, sinus rhythm, respiration rate 1836, blood pressure 150/78, saturating at 98% on room air, CPAP at night CIWA: 10, 10, 6, 2, 2, 10 Fluid balance negative by 3 L total. Labs: WBC 14.2, H&H 11.8 and 37, platelet count 271 Sodium 142, potassium 3.8, chloride 107, bicarbonate 22, BUN 12, creatinine 0.8, glucose 81, calcium 9.8, phosphorus 4.1, magnesium 1.8, LFTs within normal limits Objective Vital Signs & I&O Last 8 Hrs of Vitals and I&O: Vital Signs Date Time Temp Pulse Resp B/P B/P Pulse O2 O2 Flow FiO2 Mean Ox Delivery Rate 01/26 1254 76 173/98 01/26 1254 76 173/93 01/26 0908 96 Room Air Room Air 01/26 0800 98.9 79 25 150/78 01/26 0800 96 Room Air 01/26 0600 111 30 143/60 01/26 0400 97.3 83 30 145/60 01/26 0400 95 Room Air 01/26 0234 77 93 01/26 0000 97.8 79 20 138/60 01/26 0000 93 Room Air 01/26 0000 97.8 79 20 138/60 93 Room Air 01/25 2358 74 92 01/25 2200 72 31 148/85 01/25 2149 80 93 01/26 2000 97.7 82 36 140/80 01/26 2000 97.7 82 36 140/80 94 Room Air 01/25 1938 96 Room Air Room Air 01/25 1920 Room Air 01/25 1800 91 20 157/79 01/25 1600 97.2 86 18 140/80 01/25 1600 97.2 86 18 140/80 94 Room Air Intake & Output 01/26 1600 01/26 0800 01/26 0000 Intake Total 189 740 Output Total 411 1050 Balance -222 -310 Intake, IV 189 740 Output, Urine 411 1050 Exam General Appearance: well developed/nourished, no apparent distress, alert, awake , comfortable, obese Head: atraumatic, normal appearance Respiratory: normal breath sounds, chest non-tender, no respiratory distress, quiet respiration, lungs clear Cardiovascular: regular rate/rhythm Gastrointestinal: normal bowel sounds, soft, non-tender Extremities: no edema, left leg with cast in place Other Physical Findings: Amos in place and draining IV Drips IV Drips: IV Ativan drip Current Medications: Current Medications Sig/Dylan Start time Last Medication Dose Route Stop Time Status Admin Acetaminophen 650 MG Q6P PRN 01/15 2030 AC 01/24 PO 1431 Albuterol Sulfate 3 ML BID 01/16 1000 AC 01/26 INH 0906 Atorvastatin Calcium 20 MG DAILY 01/24 1000 AC 01/26 PO 1253 Budesonide/ 2 PUF BID 01/24 2200 AC 01/26 Formoterol Fumarate INH 1305 Carvedilol 6.25 MG BID 01/15 2200 AC 01/26 PO 1254 Diphenhydramine HCl 50 MG .STK-MED ONE 01/25 2336 DC IM 01/25 2337 Diphenhydramine HCl 25 MG Q6P PRN 01/23 1200 AC 01/25 IV 2338 Enoxaparin Sodium 40 MG DAILY 01/16 1000 AC 01/26 SC 1256 Folic Acid 1 MG DAILY 01/25 1000 AC 01/26 PO 1253 Haloperidol 5 MG .STK-MED ONE 01/25 1709 DC IM 01/25 1710 Haloperidol 1 MG Q12P PRN 01/24 1745 AC 01/25 IM 1715 Lidocaine 1 PAT DAILY PRN 01/24 1430 AC 01/24 EXT 1533 Lorazepam 100 MG Q18H 01/25 1500 AC 01/26 Dextrose/Water 500 ML IV 0837 Lorazepam 0 Q1P PRN 01/16 1315 AC 01/25 IV 1807 Losartan Potassium 100 MG DAILY 01/16 1000 AC 01/26 PO 1254 Magnesium Oxide 400 MG ONE ONE 01/26 0800 DC 01/26 PO 01/26 0801 0837 Montelukast Sodium 10 MG AT BEDTIME 01/15 2200 AC 01/25 PO 2111 Morphine Sulfate 2 MG Q6-PRN PRN 01/25 0830 AC 01/25 IV 1807 Multivitamins 1 TAB DAILY 01/19 1000 AC 01/26 PO 1253 Nicotine 7 MG DAILY 01/24 1354 AC 01/26 TOP 1253 Omeprazole 40 MG DAILY AC 01/23 0700 AC 01/26 PO 0837 Potassium Chloride 20 MEQ ONCE ONE 01/26 0800 DC 01/26 PO 01/26 0801 0837 Prednisone 10 MG DAILY 01/28 1000 AC PO 01/29 1001 Prednisone 20 MG DAILY 01/26 1000 AC 01/26 PO 01/27 2300 1257 Thiamine HCl 500 MG TID 01/23 1000 DC 01/25 Sodium Chloride 250 ML IV 01/25 2213 2116 Zinc Oxide 1 ARMIDA BID 01/24 2200 AC 01/26 TOP 1306 Impression/Plan Impression/Problem List Impression: Patient is a 52 year old male past medical history of hypertension, ANDREW on CPAP at night presented to the ED with complains of worsening shortness of breath for the past 2 days. He reported using 2 pints of vodka/day Hospital Course: Mr Vitale was admitted with a diagnosis of acute hypoxic respiratory failure likely secondary tp viral bronchitis with possible pneumonia. He was started on oxygen 3L via NC, as well as IV Ceftriaxone and Azithromycin for pneumonia and a 5 day course of Prednisone 40mg. He was initially started on IV Ativan prn per JUAN DAVID. However, by yesterday evening, the patient was reported to be increasingly agitated and hence he was started on scheduled Ativan 2mg q6. On 01/18 home organizer at ~ 5AM, patient was reported to be increasingly agitated requiring frequent doses of IV Ativan. His respiratory status deteriorated with his sats in 80s on 8L of oxygen. He was thus transferred to the ICU for possible intubation and IV Ativan drip to treat for alcohol withdrawal. Respiratory: Acute Hypoxic Respiratory Failure likely secondary to bronchitis and ? underlying pneumonia Patient had increased respiratory effort and was intubated for impending respiratory failure on 01/18 and sedated with IV propofol which was weaned off on 01/19. Sedation was continued with IV Ativan. Patient was successfully extubated on 01/21. Patient's chest x-ray and blood gas are within normal limits. Patient is in no acute respiratory distress this morning saturating well on room air and CPAP at night. - Continue CPAP at night for ANDREW - TRC/DuoNeb - Patient is currently on prednisone 20mg. Continue PO prednisone with a taper of 10mg every 2 days. - Symbicort BID Lung nodules - Follow up CT Chest outpatient Infection: Bronchitis/Pneumonia Sputum culture is growing MRSA and patient is positive for MRSA in the nares. 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 Patient received a total of 5 days of IV antibiotics. Patient remains afebrile in no acute respiratory distress with decreasing requirement of oxygen and doing well off mechanical ventilation. Patient's leukocytosis is likely secondary to steroid use. Patient's chest x- ray and ABG are within normal limits. - Continue to monitor vitals and watch off antibiotics Cardiac: Run of VTACH - 8 beats on 01/19 EKG was done on 01/19, showed no change from previous EKG. Troponin <0.01. Discussed with cardiology, Dr. Boston. Per cardiology if repeated episodes, coreg can be increased. - electrolytes repleted today - continue to monitor - if further vtach, may increase dose of carvedilol - cardiology on board. appreciate recommendations History of HTN - continue coreg Diastolic Heart Failure Patient's echo showed mild diastolic dysfunction. During his ICU stay patient was fluid overloaded requiring daily IV Lasix. Patient today appears euvolemic with a normal chest x-ray. - continue to monitor I/O - continue daily weights - avoid excessive fluids Heme: Anemia. Likely 2/2 to iron deficiency anemia with low iron levels. Guiac positive stools on 01/20. H/H stable. - Continue to monitor h/h - Patient will need to follow up with GI for outpatient colonoscopy - Continue PO protonix Metabolic: Alcohol withdrawal - Continue IV Ativan drip and wean as tolerated - Monitor CIWA per protocol - Thiamine, Folic acid, MVM Ailementary: Formal swallow evaluation today after extubating on 01/21. Patient started on a heart healthy puree, nectar thick diet. Re-evaluated on 01/24. Patient's diet changed to puree with nectar thick liquids. Electrolytes repleted today Diarrhea: Patient has had multiple episodes of loose stools. Continues to have loose stool. Frequency increased today. Patient remains afebrile with no abdominal complaints. Likely increased secondary to alcohol withdrawal. Patient's c.dif was negative. - Continue to monitor stool output Neurology: AMS and agitation 2/2 alcohol withdrawal and back pain: Improving today. - Continue to wean off Ativan per psychiatry. - Patient's IV ativan at a rate of 5 today. If patient tolerates it, decrease the dose of ativan tomorrow by 1-2. - Morphine PRN- decreased the frequency today , Lidocaine patch, Tylenol PRN Psychiatric Health - Per psychiatry patient's medications have been held - Haldol PRN for agitation (monitor QTc. Do not give for QTc> 475) - Patient will need to follow up with psychiatry outpatient - Social work consult for outpatient rehab, once patient is more stable and coherent Tobacco use Patient reports tobacco use - Nicotine patch given Nephrology: None Podiatry: Patient is status post fusion surgery of his left foot currently in a cast. Spoke to (automotive service cashier, office: [phone], [place]: [phone]). Patient is nonweight bearing on the left leg. - Patient will need to follow up with Dr. Tamayo upon discharge to change the cast - Patient is to remain nonweight bearing on the left foot/leg. - Will have patient out of bed to chair with assistance - PT eval DVT PPx: Lovenox Problem List: 1. Alcohol withdrawal Pain Ratin Pain Location: back Tomorrow's Labs & Rationales: cbc icu bundle Plan DVT/Prophylaxis: mechanical, pharmacological Royal Martinez MD 01/26/18 1257: Attending MD Review Statement Attending Sign Off Attending Cosign Statement: I have: examined this patient, reviewed [facility], [facility] EMR data, personally reviewd images, discussd w/resident/PA/VP ANCILLARY, discussed mgmt plan w/tulio, discussed mgmt plan w/CM, discussed mgmt plan w/pt, agreed w/resident/PA/VP ANCILLARY, amended to note. Other Findings: Impression 52 year old man * resolving acute hypoxemic respiratory failure, likely to withdrawal symptoms requiring increased sedation * substance dependence, etoh dependence Plan -taper prednisone by 10mg every 2 days -cont symbicort 160/4.5 2 puffs BID with rinsing of the mouth -f/u crisis/psych recommendations -mvi, folate, thiamine -ciwa monitoring -taper ativan gtt, librium when crisis recommends DVT prophylaxis at all times TTS 35 min
--- NOTE | 2018-01-26 18:44 | Incdntl Nt Psy ---
Incidental Note Notation: I stopped to see patient briefly. He was in bed confused and exposed with his jennifer up. Staff addressed. Pt is somnolent and speaking incoherently. He is oriented only to person. He will need to be reassessed. JT
[2018-01-27] VITALS (11 sets, daily range): BP systolic 104–151; BP diastolic 54–98
[2018-01-27 05:15] LABS: ABSOLUTE BASOPHIL COUNT 0.1 /CUMM (0.0-0.2); ABSOLUTE EOSINOPHIL COUNT 0.4 /CUMM (0.0-0.7); ABSOLUTE GRANULOCYTE CT 12.1 /CUMM (1.4-6.5); ABSOLUTE LYMPH COUNT 2.4 /CUMM (1.2-3.4); BASOPHIL % 0.4 % (0.0-2.0); EOSINOPHIL % 2.6 % (0-5); GRANULOCYTE % 76.2 % (42.2-75.2); HEMATOCRIT 40.4 % (42-52); MEAN CORPUSCULAR HGB 26.6 PG (27.0-31.0); MEAN CORPUSCULAR HGB CONC 31.6 G/DL (33.0-37.0); MEAN CORPUSCULAR VOLUME 84.4 FL (80.0-94.0); MEAN PLATELET VOLUME 7.9 FL (7.4-10.4); PLATELET COUNT 287 /CUMM (130-400); RBC DISTRIBUTION WIDTH 15.3 % (11.5-14.5); RED BLOOD CELL CT 4.79 /CUMM (4.70-6.10); WHITE BLOOD CELL COUNT 15.9 /CUMM (4.8-10.8)
--- NOTE | 2018-01-27 08:08 | PN- Resident CRCU ---
Miya Pop 01/27/18 0808: Subjective HPI/CRCU Issues: 1. Acute hypoxic respiratory failure with multifactorial etiology-secondary to acute bronchitis with probable pneumonia and ANDREW 2. ETOH abuse/withdrawal 3. Hypertension 4. Left leg post surgical pain status post fusion surgery of his left foot and chronic back pain 5. History of heroin abuse formerly on methadone 6. ANDREW on CPAP 7. ADHD 24 Hour Events: No acute events or complaints overnight Objective Vital Signs & I&O Last 8 Hrs of Vitals and I&O: Intake & Output 01/27 1600 Intake Total 686 Output Total 250 Balance 436 Intake, IV 206 Intake, Oral 480 Number 0 Bowel Movements Output, Urine 250 Exam General Appearance: well developed/nourished, lethargic, obese Cardiovascular: regular rate/rhythm Gastrointestinal: normal bowel sounds, soft, non-tender Extremities: L foot cast intact Current Medications: Current Medications Sig/Dylan Start time Last Medication Dose Route Stop Time Status Admin Acetaminophen 650 MG Q6P PRN 01/15 2030 AC 01/24 PO 1431 Albuterol Sulfate 3 ML BID 01/16 1000 AC 01/27 INH 0841 Atorvastatin Calcium 20 MG DAILY 01/24 1000 AC 01/27 PO 0809 Budesonide/ 2 PUF BID 01/24 2200 AC 01/27 Formoterol Fumarate INH 0809 Carvedilol 6.25 MG BID 01/15 2200 AC 01/27 PO 0809 Diphenhydramine HCl 50 MG .STK-MED ONE 01/26 2353 DC IM 01/26 2354 Diphenhydramine HCl 25 MG Q6P PRN 01/23 1200 AC 01/27 IV 0021 Enoxaparin Sodium 40 MG DAILY 01/16 1000 AC 01/27 SC 0808 Folic Acid 1 MG DAILY 01/25 1000 AC 01/27 PO 0809 Haloperidol 1 MG ONCE ONE 01/27 0100 DC 01/27 IM 01/27 0101 0056 Haloperidol 1 MG Q12P PRN 01/24 1745 AC 01/26 IM 1816 Lidocaine 1 PAT DAILY PRN 01/24 1430 AC 01/24 EXT 1533 Lorazepam 100 MG Q20H 01/28 0530 AC Dextrose/Water 500 ML IV Lorazepam 100 MG Q18H 01/25 1500 AC 01/27 Dextrose/Water 500 ML IV 01/28 0529 0925 Lorazepam 0 Q1P PRN 01/16 1315 AC 01/27 IV 0214 Losartan Potassium 100 MG DAILY 01/16 1000 AC 01/27 PO 0809 Montelukast Sodium 10 MG AT BEDTIME 01/15 2200 AC 01/26 PO 2116 Morphine Sulfate 2 MG Q6-PRN PRN 01/25 0830 AC 01/27 IV 1604 Multivitamins 1 TAB DAILY 01/19 1000 AC 01/27 PO 0809 Nicotine 7 MG DAILY 01/24 1354 AC 01/27 TOP 0808 Omeprazole 40 MG DAILY AC 01/23 0700 AC 01/27 PO 0548 Prednisone 10 MG DAILY 01/28 1000 AC PO 01/29 1001 Prednisone 20 MG DAILY 01/26 1000 AC 01/27 PO 01/27 2300 0809 Zinc Oxide 1 ARMIDA BID 01/24 2200 AC 01/27 TOP 0809 Impression/Plan Impression/Problem List Impression: Mr. Vitale is a 52-year-old man with a past medical history of hypertension, ANDREW on CPAP at night, ADHD and recent left foot surgery 2 weeks prior to presentation with complaints of worsening shortness of breath for the past 3 [address] to [facility] but subsequently transferred to ICU for ativan infusion Problem list: 1. Acute hypoxic respiratory failure with multifactorial etiology-secondary to acute bronchitis with probable pneumonia and ANDREW 2. ETOH abuse/withdrawal 3. Hypertension 4. Left leg post surgical pain status post fusion surgery of his left foot and chronic back pain 5. History of heroin abuse formerly on methadone 6. ANDREW on CPAP 7. ADHD Plan: TRC/nebs PRN Wean off Ativan, currently at 5 mcg Ativan as per [facility] protocol Continue Prednisone taper Pain: Morphine, Lidoderm, Acetaminophen Continue Nicotine patch Strict I&O, daily weights CXR today suggestive of reactive airways disease or bronchitis Cardiology, Psych recommendations appreciated Follow up with Dr. Tamayo upon discharge for L foot cast Diet: Puree with nectar thick Problem List: 1. Alcohol withdrawal Pain Ratin Pain Location: NA Pain Goal: Remain pain free Pain Plan: NA Tomorrow's Labs & Rationales: CBC, bundle Plan DVT/Prophylaxis: mechanical, pharmacological Royal Martinez MD 01/27/18 1117: Attending MD Review Statement Attending Sign Off Attending Cosign Statement: I have: examined this patient, reviewed [facility] EMR data, personally reviewd images, discussd w/resident/PA/TECHNICAL ADMINISTRATIVE ASSISTANT, discussed mgmt plan w/tulio, discussed mgmt plan w/CM, discussed mgmt plan w/pt, agreed w/resident/PA/TECHNICAL ADMINISTRATIVE ASSISTANT, amended to note. Other Findings: Impression 52 year old man * resolving acute hypoxemic respiratory failure, likely to withdrawal symptoms requiring increased sedation * substance dependence, etoh dependence Plan -taper prednisone by 10mg every 2 days -cont symbicort 160/4.5 2 puffs BID with rinsing of the mouth -f/u crisis/psych recommendations -mvi, folate, thiamine -ciwa monitoring -taper ativan gtt, librium when crisis recommends DVT prophylaxis at all times TTS 35 min
--- NOTE | 2018-01-27 16:19 | RADIOLOGY REPORT ---
EXAMINATION: XR PORTABLE CHEST CLINICAL INFORMATION: Bronchitis versus pneumonia. Rule out acute pathology. COMPARISON: Several prior chest x-rays, most recent of which is dated 01/21/2018. TECHNIQUE: Portable AP semierect view of the chest was obtained. FINDINGS: EKG leads overlie the chest. The cardiomediastinal silhouette is within normal limits in size. Apparent asymmetric opacity is seen diffusely in the right lung compared to the left. Findings are consistent with patient rotation and artifactual density. There is thickening of the central airways, suggesting reactive airways disease or bronchitis. No focal consolidation, effusion or pneumothorax is seen. Bony structures are unremarkable. IMPRESSION: Slightly limited study due to patient rotation. Thickening of central airways is seen, suggesting reactive airways disease or bronchitis. No focal pneumonia.
[2018-01-28] VITALS (8 sets, daily range): BP systolic 110–161; BP diastolic 66–778
[2018-01-28 04:49] LABS: ABSOLUTE BASOPHIL COUNT 0.1 /CUMM (0.0-0.2); ABSOLUTE EOSINOPHIL COUNT 0.6 /CUMM (0.0-0.7); ABSOLUTE LYMPH COUNT 2.3 /CUMM (1.2-3.4); BASOPHIL % 0.5 % (0.0-2.0); EOSINOPHIL % 3.2 % (0-5); GRANULOCYTE % 77.9 % (42.2-75.2); HEMATOCRIT 41.2 % (42-52); MEAN CORPUSCULAR HGB 27.2 PG (27.0-31.0); MEAN CORPUSCULAR HGB CONC 32.1 G/DL (33.0-37.0); MEAN CORPUSCULAR VOLUME 84.7 FL (80.0-94.0); MEAN PLATELET VOLUME 8.2 FL (7.4-10.4); PLATELET COUNT 284 /CUMM (130-400); RBC DISTRIBUTION WIDTH 15.4 % (11.5-14.5); RED BLOOD CELL CT 4.86 /CUMM (4.70-6.10)
--- NOTE | 2018-01-28 08:10 | PN- Resident CRCU ---
Osmar KU,Jeff 01/28/18 0810: Subjective HPI/CRCU Issues: Patient is in ICU requiring IV Ativan drip I followed up and examined the patient today. He is resting comfortably in bed, in restraints, with IV Ativan drip running. Overnight nursing staff reported that he was confused, agitated, delirious, scoring high CIWA scores. This morning, to me he was much,, confused, disoriented, but cooperative. 24 Hour Events: High CIWA scores, max 19 Was order #7 called because the patient was agitated/aggressive, earlier this morning. Objective Vital Signs & I&O Last 8 Hrs of Vitals and I&O: Vital Signs Date Time Temp Pulse Resp B/P B/P Pulse O2 O2 Flow FiO2 Mean Ox Delivery Rate 01/28 1145 80 140/70 01/28 1145 80 140/70 01/28 0853 95 Room Air 01/28 0800 98.0 74 22 118/66 96 Room Air 01/28 0600 97.0 88 22 145/81 01/28 0432 80 01/28 0400 97.0 83 24 134/778 01/28 0400 96 CPAP 01/28 0200 97.9 79 20 133/77 01/28 0150 92 99 04/01 0000 97.9 88 30 140/76 04/ 0000 97.9 88 30 146/76 94 CPAP 04/ 0000 94 CPAP 01/27 2341 78 92 01/27 2243 80 20 125/70 01/27 2200 97.9 80 26 125/70 01/27 2059 96 Room Air Room Air 01/28 2000 98.0 82 18 128/68 01/28 2000 93 Room Air Exam General Appearance: no apparent distress, alert, awake, anxious, obese, IN RESTRAINTS Other Physical Findings: Cardiovascular: regular rate/rhythm Respiratory: b/l clear excpet basal crackles over bases Abdomen: normal bowel sounds, soft, non-tender Extremities: L foot cast intact, DNVS intact Mentation: confused IV Drips IV Drips: IV Ativan Current Medications: Current Medications Sig/Dylan Start time Last Medication Dose Route Stop Time Status Admin Acetaminophen 650 MG Q6P PRN 01/15 2030 AC 01/24 PO 1431 Albuterol Sulfate 3 ML BID 01/16 1000 AC 01/28 INH 0844 Atorvastatin Calcium 20 MG DAILY 01/24 1000 AC 01/28 PO 1144 Budesonide/ 2 PUF BID 01/24 2200 AC 01/28 Formoterol Fumarate INH 1146 Carvedilol 6.25 MG BID 01/15 2200 AC 01/28 PO 1145 Diphenhydramine HCl 25 MG Q6P PRN 01/23 1200 AC 01/28 IV 1146 Enoxaparin Sodium 40 MG DAILY 01/16 1000 AC 01/28 SC 1145 Folic Acid 1 MG DAILY 01/25 1000 AC 01/28 PO 1144 Haloperidol 1 MG Q12P PRN 01/24 1745 AC 01/28 IM 1211 Lidocaine 1 PAT DAILY PRN 01/24 1430 AC 01/28 EXT 1146 Lorazepam 100 MG Q20H 01/28 0530 AC 01/28 Dextrose/Water 500 ML IV 0613 Lorazepam 100 MG Q18H 01/25 1500 DC 01/27 Dextrose/Water 500 ML IV 01/28 0529 0925 Lorazepam 0 Q1P PRN 01/16 1315 AC 01/27 IV 0214 Losartan Potassium 100 MG DAILY 01/16 1000 AC 01/28 PO 1145 Montelukast Sodium 10 MG AT BEDTIME 01/15 2200 AC 01/27 PO 2243 Morphine Sulfate 2 MG Q6-PRN PRN 01/25 0830 AC 01/27 IV 1604 Multivitamins 1 TAB DAILY 01/19 1000 AC 01/28 PO 1145 Nicotine 7 MG DAILY 01/24 1354 AC 01/28 TOP 1146 Omeprazole 40 MG DAILY AC 01/23 0700 AC 01/28 PO 1144 Prednisone 10 MG DAILY 01/28 1000 AC 01/28 PO 01/29 1001 1145 Prednisone 20 MG DAILY 01/26 1000 DC 01/27 PO 01/27 2300 0809 Zinc Oxide 1 ARMIDA BID 01/24 2200 AC 01/28 TOP 1146 Impression/Plan Impression/Problem List Impression: 52-year-old man with past medical history of hypertension, obstructive sleep apnea on CPAP, a DSD, chronic pain on methadone, recent left foot surgery by a air liaison and special staff, initially presented with shortness of breath, cough, was treated in the general medical floor and later in the ICU for acute hypoxic respiratory failure with acute bronchitis, and alcohol withdrawal. Problem list: * Acute hypoxic respiratory failure, secondary to bronchitis/pneumonia/ANDREW, better s/p extubation * Alcohol withdrawal, still withdrawing, on IV Ativan drip * Status post left leg podiatry surgery, on leg/foot cast * History of hypertension * History of opiate abuse, was on methadone before admission * Obstructive sleep apnea, on CPAP * History of ADHD Plan: * Continue monitoring vitals, CIWA * Continue IV Ativan currently at 5 mcg/h, could not taper today due to agitation, aggression, high CIWA scores * His Yarely has been asked again to check if the air liaison and special staff would be okay for the patient to be seen for the left foot while he is still in the hospital, she will follow and inform us. * We'll try to wean him off Ativan as soon as possible * Continue prednisone taper * Problem List: 1. Alcohol withdrawal Pain Ratin Tomorrow's Labs & Rationales: ICU BUNDLE Plan DVT/Prophylaxis: mechanical, pharmacological Royal Martinez MD 01/28/18 1147: Attending MD Review Statement Attending Sign Off Attending Cosign Statement: I have: examined this patient, reviewed [facility] EMR data, personally reviewd images, discussd w/resident/PA/WRINGER OPERATOR, discussed mgmt plan w/tulio, discussed mgmt plan w/CM, discussed mgmt plan w/pt, agreed w/resident/PA/WRINGER OPERATOR, amended to note. Other Findings: Impression 52 year old man * resolving acute hypoxemic respiratory failure, likely to withdrawal symptoms requiring increased sedation * substance dependence, etoh dependence Plan -if leukocytosis persists, will consider ID input, in meantime obtain CXR -taper prednisone by 10mg every 2 days -cont symbicort 160/4.5 2 puffs BID with rinsing of the mouth -f/u crisis/psych recommendations -mvi, folate, thiamine -ciwa monitoring -taper ativan gtt, librium when crisis recommends DVT prophylaxis at all times TTS 35 min
--- NOTE | 2018-01-28 12:08 | RADIOLOGY REPORT ---
EXAMINATION: XR PORTABLE CHEST CLINICAL INFORMATION: Worsening leukocytosis with lowering steroids. Was intubated in this admission. Now extubated. Sputum positive for MRSA now. Rule out infection. COMPARISON: Several prior chest x-rays, most recent of which is dated 01/27/2018. TECHNIQUE: Portable AP semierect view of the chest was obtained. FINDINGS: EKG leads overlie the chest. The cardiomediastinal silhouette appears prominent due to technique of the exam. Low lung volumes are seen with hazy opacity in the left lung base. The lungs are otherwise unremarkable. No pneumothorax or right-sided pleural effusion is seen. Bony structures are unremarkable. IMPRESSION: Low lung volumes with hazy opacity in the left lung base. Findings are most likely related to a summation shadow with overlapping breast tissue obscuring assessment. However, in the clinical setting provided, left lung base is incompletely evaluated for subtle evolving pneumonia. Would recommend PA and lateral views of the chest, when the patient is able, for clarification of findings.
--- NOTE | 2018-01-28 12:22 | Cons- Infect Disease ---
General Information and HPI Consulting Request Date of Consult: 01/28/18 Requested By: William Shafer MD Reason for Consult: abx advice Source of Information: patient, primary team Exam Limitations: clinical condition History of Present Illness: 52 year old male past medical history of Etoh abuse, hypertension, ANDREW on CPAP at night presented to the ED on 01/15 with complains of worsening shortness, wheezing and hypoxemia (pulse ox ~80s while he was in the PCP office WAFER SUBSTRATE TESTER). His PCP advised him to go to the ER to rule out pulmonary embolism, as he recently had reconstructive surgery two weeks ago on his left leg after a fall. Patient noted to have worsening leukocytosis while on prednisone taper. Currently comfortable, oacs dry cough, no fever or chills. No n/v. Reported diarrhe WAFER SUBSTRATE TESTER. Allergies/Medications Allergies: Coded Allergies: Penicillins (UNKNOWN 01/15/18) Home Med List: Atorvastatin Calcium 20 MG TABLET 1 TAB PO DAILY HIGH CHOLESTROL (Reported) Bupropion HCl (Bupropion XL) 300 MG TAB.ER.24H 1 TAB PO QAM MENTAL HEALTH ( Reported) Carvedilol 6.25 MG TABLET 1 TAB PO BID HEART (Reported) Dextroamphetamine/Amphetamine (Dextroamp-Amphetamin 30 MG Tab) 30 MG TABLET 1 TAB PO BID MENTAL HEALTH (Reported) Gabapentin 400 MG CAPSULE 2 CAP PO TID UNKNOWN (Reported) Ibuprofen 800 MG TABLET 1 TAB PO TID PRN pain Lipase/Protease/Amylase (Creon Dr 24,000 Units Capsule) 24-76-120K CAPSULE.DR 3 TAB PO TID UNKNOWN (Reported) Losartan Potassium 100 MG TABLET 1 TAB PO DAILY HEART (Reported) Methadone HCl 10 MG/ML ORAL.CONC 30 MG PO DAILY MAINTENCE (Reported) [place]-3 Acid Ethyl Esters 1 GRAM CAPSULE 1 CAP PO TID SUPPLEMENT (Reported) Testosterone (Androgel) 20.25/1.25 GEL..LINGO CLEANER 40.5 TOP DAILY UNKNOWN ( Reported) Zolpidem Tartrate 10 MG TABLET 1 TAB PO QPM SLEEP (Reported) Current Medications: Current Medications Sig/Dylan Start time Last Medication Dose Route Stop Time Status Admin Acetaminophen 650 MG Q6P PRN 01/15 2030 AC 01/24 PO 1431 Albuterol Sulfate 3 ML BID 01/16 1000 AC 01/28 INH 0844 Atorvastatin Calcium 20 MG DAILY 01/24 1000 AC 01/28 PO 1144 Budesonide/ 2 PUF BID 01/24 2200 AC 01/28 Formoterol Fumarate INH 1146 Carvedilol 6.25 MG BID 01/15 2200 AC 01/28 PO 1145 Diphenhydramine HCl 25 MG Q6P PRN 01/23 1200 AC 01/28 IV 1146 Enoxaparin Sodium 40 MG DAILY 01/16 1000 AC 01/28 SC 1145 Folic Acid 1 MG DAILY 01/25 1000 AC 01/28 PO 1144 Haloperidol 1 MG Q12P PRN 01/24 1745 AC 01/26 IM 1816 Lidocaine 1 PAT DAILY PRN 01/24 1430 AC 01/28 EXT 1146 Lorazepam 100 MG Q20H 01/28 0530 AC 01/28 Dextrose/Water 500 ML IV 0613 Lorazepam 100 MG Q18H 01/25 1500 DC 01/27 Dextrose/Water 500 ML IV 01/28 0529 0925 Lorazepam 0 Q1P PRN 01/16 1315 AC 01/27 IV 0214 Losartan Potassium 100 MG DAILY 01/16 1000 AC 01/28 PO 1145 Montelukast Sodium 10 MG AT BEDTIME 01/15 2200 AC 01/27 PO 2243 Morphine Sulfate 2 MG Q6-PRN PRN 01/25 0830 AC 01/27 IV 1604 Multivitamins 1 TAB DAILY 01/19 1000 AC 01/28 PO 1145 Nicotine 7 MG DAILY 01/24 1354 AC 01/28 TOP 1146 Omeprazole 40 MG DAILY AC 01/23 0700 AC 01/28 PO 1144 Prednisone 10 MG DAILY 01/28 1000 AC 01/28 PO 01/29 1001 1145 Prednisone 20 MG DAILY 01/26 1000 DC 01/27 PO 01/27 2300 0809 Zinc Oxide 1 ARMIDA BID 01/24 2200 AC 01/28 TOP 1146 Past History Travel History Traveled to [place] past 21 day No Medical History Neurological: SEIZURE x 1 S/P HEAD INJ EENT: NONE Cardiovascular: hypertension Respiratory: CHRONIC BRONCHITIS SINCE Gastrointestinal: umbilical hernia Hepatic: NONE Renal: NONE Musculoskeletal: disk herniation, COMPOUND FX L ANKLE BONE SPURS IN NECK/BACK Psychiatric: alcohol dependence, depression Endocrine: NONE Blood Disorders: NONE Cancer(s): NONE MANAGER TREASURY/Reproductive: NONE History of MRSA: Yes History of VRE: No History of CDIFF: No Isolation History: Contact Influenza Vaccine: 12/01/17 Surgical History Surgical History: surgical repair of left foot on 12/29/2017 Family History Relations & Conditions If Any: Relation not specified for: *No pertinent family history Psychosocial History Services at Home: None Smoking Status: Former Smoker ETOH Use: occasional use Illicit Drug Use: denies illicit drug use Review of Systems Comments 12 points reviewed as noted, otherwise negative. Exam & Diagnostic Data Last 24 Hrs of Vital Signs/I&O Vital Signs Date Time Temp Pulse Resp B/P B/P Pulse O2 O2 Flow FiO2 Mean Ox Delivery Rate 01/28 1145 80 140/70 01/28 1145 80 140/70 01/28 0853 95 Room Air 01/28 0600 97.0 88 22 145/81 01/28 0432 80 01/28 0400 97.0 83 24 134/778 01/28 0400 96 CPAP 01/28 0200 97.9 79 20 133/77 01/28 0150 92 99 01/28 0000 97.9 88 30 140/76 04 0000 97.9 88 30 146/76 94 CPAP 01/28 0000 94 CPAP 01/27 2341 78 92 01/27 2243 80 20 125/70 01/27 2200 97.9 80 26 125/70 01/27 2059 96 Room Air Room Air 01/28 2000 98.0 82 18 128/68 01/27 2000 93 Room Air 01/27 1600 97.5 70 22 126/78 01/27 1600 96 Nasal 2.0L Cannula 01/27 1600 97.5 70 22 126/78 96 Nasal 2.0L Cannula 01/27 1400 72 20 105/71 Intake & Output 01/28 1600 01/28 0800 01/28 0000 Intake Total 160 520 Output Total 240 190 Balance -80 330 Intake, IV 160 160 Intake, Oral 360 Output, Urine 240 190 Physical Exam Other Physical Findings: General Appearance: well developed/nourished, no apparent distress, alert, awake , comfortable, obese Head: atraumatic, normal appearance Respiratory: normal breath sounds, chest non-tender, no respiratory distress, quiet respiration, lungs clear Cardiovascular: regular rate/rhythm Gastrointestinal: normal bowel sounds, soft, non-tender Extremities: no edema Last 24 Hours of Lab Results: Laboratory Tests 01/28 040 Chemistry Sodium (137 - 145 mmol/L) 141 Potassium (3.5 - 5.1 mmol/L) 3.9 Chloride (98 - 107 mmol/L) 105 Carbon Dioxide (22 - 30 mmol/L) 22 Anion Gap (5 - 16) 15 BUN (9 - 20 mg/dL) 24 H Creatinine (0.7 - 1.2 mg/dL) 0.9 Estimated GFR (>60 ml/min) > 60 Glucose (65 - 99 mg/dL) 99 Calcium (8.4 - 10.2 mg/dL) 9.8 Phosphorus (2.5 - 4.5 mg/dL) 4.8 H Magnesium (1.6 - 2.3 mg/dL) 2.0 Total Bilirubin (0.2 - 1.3 mg/dL) 0.8 AST (17 - 59 U/L) 27 ALT (21 - 72 U/L) 46 Albumin (3.5 - 5.0 g/dL) 3.9 Hematology CBC w Diff NO MAN DIFF REQ WBC (4.8 - 10.8 /CUMM) 18.0 H RBC (4.70 - 6.10 /CUMM) 4.86 Hgb (14.0 - 18.0 G/DL) 13.2 L Hct (42 - 52 %) 41.2 L MCV (80.0 - 94.0 FL) 84.7 MCH (27.0 - 31.0 PG) 27.2 MCHC (33.0 - 37.0 G/DL) 32.1 L RDW (11.5 - 14.5 %) 15.4 H Plt Count (130 - 400 /CUMM) 284 MPV (7.4 - 10.4 FL) 8.2 Gran % (42.2 - 75.2 %) 77.9 H Lymphocytes % (20.5 - 51.1 %) 13.0 L Monocytes % (1.7 - 9.3 %) 5.4 Eosinophils % (0 - 5 %) 3.2 Basophils % (0.0 - 2.0 %) 0.5 Absolute Granulocytes (1.4 - 6.5 /CUMM) 14.0 H Absolute Lymphocytes (1.2 - 3.4 /CUMM) 2.3 Absolute Monocytes (0.10 - 0.60 /CUMM) 1.0 H Absolute Eosinophils (0.0 - 0.7 /CUMM) 0.6 Absolute Basophils (0.0 - 0.2 /CUMM) 0.1 Last 24 Hours of Maurilio Results: SPEC #: [id number] TAL: 01/17/18 STATUS: COMP RECD: 01/17/18-[address]: Jase KU,Jayne SOURCE: LOWER RESP ENTR: 01/17/[address]: Soni KU,William [facility] SPUTUMYUE Vasquez MD,Harley Holley MD, [facility] ORDERED: LOWER RESPIRATO Procedure Result > GRAM STAIN Final 01/17/18-105 WHITE BLOOD CELLS FEW SQUAMOUS CELLS RARE OTHER NO ORGANISMS SEEN > LOWER RESPIRATORY CULTURE Final 01/19/18-1216 SCANT GROWTH OF: 1. YEAST 2. METH RESIST STAPH AUREUS REPORTED TO AND READ BACK BY: RAY AT 1216 01/19/18 LAB.SVCY. WITH MIXED ERICA AFTER 2 DAYS. 2. METH RESIST [employer]UREUS RX ABN ------ --- 2. METH RESIST [employer] RX AB ------ -- CEFAZOLIN R AMOXICILLIN/CLAVULINIC ACID R AMPICILLIN/SULBACTAM R TETRACYCLINE S TRIMETHOPRIM/SULFAMETHOXAZOLE S AZITHROMYCIN R CLINDAMYCIN S ERYTHROMYCIN R OXACILLIN R VANCOMYCIN S ATTENTIONATTENTIONPLACE PATIENT ON CONTACT PRECAUTIONS Diagnostic Data Recent Imaging Findings: CXR IMPRESSION: Low lung volumes with hazy opacity in the left lung base. Findings are most likely related to a summation shadow with overlapping breast tissue obscuring assessment. However, in the clinical setting provided, left lung base is incompletely evaluated for subtle evolving pneumonia. Would recommend PA and lateral views of the chest, when the patient is able, for clarification of findings. DICTATED BY: Lissy KU,Crystal Tillman DATE/TIME DICTATED:01/28/181199 RADIO COMMUNICATIONS MECHANICIAN:NIDIA DATE/TIME TRANSCRIBED:01/28/181199 Assessment/Plan Assessment/Plan Impression: 1. Acute bronchitis/question LLL asp pneumonia/acute hypoxic respiratory failure /MRSA colonized/worsening leukocytosis 2. ETOH abuse/withdrawal 3. Hypertension 4. Left leg post surgical pain status post fusion surgery of his left foot and chronic back pain 5. History of heroin abuse formerly on methadone 6. ANDREW on CPAP 7. ADHD Suggestion: 1. Continue to trend CBC worsening leukocytosis question if reactive to steroid therapy or reflecting MRSA lung infection pneumonia; patient w/ non toxic appearance. Swallow eval. 2. Repeat sputum cx (patient MRSA colonized w/ sputum cx from 01/17 + MRSA/yeast) ; afebrile (steroids can mask fever). 3. Could consider CT chest w/o contrast eval pneumonia WBC cont to trend up and worsening cough; meanwhile start minocycline 100 mg po bid. 4. If loose stools C. difficile assay. Consult Acknowledgment - Thank you for your consult request.
[2018-01-29] VITALS (10 sets, daily range): BP systolic 110–142; BP diastolic 66–80
[2018-01-29 06:23] LABS: ABSOLUTE BASOPHIL COUNT 0.1 /CUMM (0.0-0.2); ABSOLUTE EOSINOPHIL COUNT 0.5 /CUMM (0.0-0.7); ABSOLUTE GRANULOCYTE CT 11.4 /CUMM (1.4-6.5); ABSOLUTE LYMPH COUNT 2.4 /CUMM (1.2-3.4); ABSOLUTE MONOCYTE COUNT 0.9 /CUMM (0.10-0.60); BASOPHIL % 0.6 % (0.0-2.0); EOSINOPHIL % 3.4 % (0-5); GRANULOCYTE % 74.6 % (42.2-75.2); HEMATOCRIT 39.3 % (42-52); MEAN CORPUSCULAR VOLUME 84.6 FL (80.0-94.0); MEAN PLATELET VOLUME 8.3 FL (7.4-10.4); PLATELET COUNT 269 /CUMM (130-400); RBC DISTRIBUTION WIDTH 15.5 % (11.5-14.5); RED BLOOD CELL CT 4.65 /CUMM (4.70-6.10); WHITE BLOOD CELL COUNT 15.3 /CUMM (4.8-10.8)
--- NOTE | 2018-01-29 07:48 | PN- Resident CRCU ---
Jase KU,Jayne 01/29/18 0747: Subjective HPI/CRCU Issues: Overnight events: Patient overnight was agitated requiring restraints. IV Ativan was continued at a rate of 5. Patient today is alert and oriented x3. Patient denies tremors, sweating, headache, visual/auditory/tactile hallucinations, chest pain, SOB, abdominal pain, n/v. Reports ongoing chronic back pain - rates it a 8/10 in severity. CIWA over 24 hours: 9, 9, 9, 9, 12, 13, 11, 16, 19, 9, 7, 4 Vitals: MAXIMUM TEMPERATURE 98.7, heart rate 70s to 80s, respiration rate 18-20, blood pressure 126/72, saturating at 94-95% on room air Labs: WBC 15.3, H&H 12.6 and 39.3, platelet count 269. Sodium 144, potassium 3.8, chloride 110, bicarbonate 18, BUN 25, creatinine 0.9, glucose 96, calcium 8.9, phosphorus 4.3, magnesium 1.9, LFTs within normal limits Chest x-ray: On 01/28 Low lung volumes with hazy opacity in the left lung base however incomplete evaluation for subtle evolving pneumonia with overlapping breast tissue obscuring assessment. Objective Vital Signs & I&O Last 8 Hrs of Vitals and I&O: Vital Signs Date Time Temp Pulse Resp B/P B/P Pulse O2 O2 Flow FiO2 Mean Ox Delivery Rate 01/29 1030 96 Room Air Room Air 01/29 0818 84 126/70 01/29 0818 84 126/700 01/29 0607 75 95 01/29 0600 98.7 74 18 126/72 Exam General Appearance: well developed/nourished, no apparent distress, alert, awake , comfortable, obese Head: atraumatic, normal appearance Respiratory: normal breath sounds, chest non-tender, no respiratory distress, quiet respiration, lungs clear Cardiovascular: regular rate/rhythm Gastrointestinal: normal bowel sounds, soft, non-tender Extremities: no edema, left leg in cast Cranial Nerves: normal hearing, normal speech, mildly slurred speech Skin: intact, normal color IV Drips IV Drips: IV Ativan Current Medications: Current Medications Sig/Dylan Start time Last Medication Dose Route Stop Time Status Admin Acetaminophen 650 MG .STK-MED ONE 01/29 2104 DC PO 04/01 2105 Acetaminophen 650 MG Q6P PRN 01/15 2030 AC 01/28 PO 2106 Albuterol Sulfate 3 ML BID 01/16 1000 AC 01/29 INH 1023 Atorvastatin Calcium 20 MG DAILY 01/24 1000 AC 01/29 PO 0817 Budesonide/ 2 PUF BID 01/24 2200 AC 01/29 Formoterol Fumarate INH 0818 Carvedilol 6.25 MG BID 01/15 2200 AC 01/29 PO 0818 Diphenhydramine HCl 50 MG .STK-MED ONE 01/28 1809 DC IM 01/28 1810 Diphenhydramine HCl 25 MG Q6P PRN 01/23 1200 AC 01/28 IV 1811 Enoxaparin Sodium 40 MG DAILY 01/16 1000 AC 01/29 SC 0817 Folic Acid 1 MG DAILY 01/25 1000 AC 01/29 PO 0817 Haloperidol 1 MG Q12P PRN 01/24 1745 AC 01/28 IM 1211 Lidocaine 1 PAT DAILY PRN 01/24 1430 AC 01/28 EXT 1146 Lorazepam 100 MG Q24H 01/29 1430 AC 01/29 Dextrose/Water 500 ML IV 1119 Lorazepam 100 MG Q20H 01/28 0530 AC 01/28 Dextrose/Water 500 ML IV 01/29 1429 1425 Lorazepam 0 Q1P PRN 01/16 1315 AC 01/27 IV 0214 Losartan Potassium 100 MG DAILY 01/16 1000 AC 01/29 PO 0818 Montelukast Sodium 10 MG AT BEDTIME 01/15 2200 AC 01/28 PO 2106 Morphine Sulfate 2 MG Q6-PRN PRN 01/25 0830 AC 01/29 IV 1041 Multivitamins 1 TAB DAILY 01/19 1000 AC 01/29 PO 0817 Nicotine 7 MG DAILY 01/24 1354 AC 01/29 TOP 0817 Omeprazole 40 MG DAILY AC 01/23 0700 AC 01/29 PO 0652 Potassium Chloride 20 MEQ ONCE ONE 01/29 0815 DC 01/29 PO 01/29 0816 0817 Prednisone 10 MG DAILY 01/28 1000 DC 01/29 PO 01/29 1001 0817 Zinc Oxide 1 ARMIDA BID 01/24 2200 AC 01/29 TOP 1041 Impression/Plan Impression/Problem List Impression: Patient is a 52 year old male past medical history of hypertension, ANDREW on CPAP at night presented to the ED with complains of worsening shortness of breath for the past 2 days. He reported using 2 pints of vodka/day Hospital Course: Mr Vitale was admitted with a diagnosis of acute hypoxic respiratory failure likely secondary tp viral bronchitis with possible pneumonia. He was started on oxygen 3L via NC, as well as IV Ceftriaxone and Azithromycin for pneumonia and a 5 day course of Prednisone 40mg. He was initially started on IV Ativan prn per JUAN DAVID. However, by yesterday evening, the patient was reported to be increasingly agitated and hence he was started on scheduled Ativan 2mg q6. On 01/18 unemployment specialist at ~ 5AM, patient was reported to be increasingly agitated requiring frequent doses of IV Ativan. His respiratory status deteriorated with his sats in 80s on 8L of oxygen. He was thus transferred to the ICU for possible intubation and IV Ativan drip to treat for alcohol withdrawal. Respiratory: Acute Hypoxic Respiratory Failure likely secondary to bronchitis and ? underlying pneumonia Patient had increased respiratory effort and was intubated for impending respiratory failure on 01/18 and sedated with IV propofol which was weaned off on 01/19. Sedation was continued with IV Ativan. Patient was successfully extubated on 01/21. Patient's chest x-ray and blood gas are within normal limits. Patient is in no acute respiratory distress this morning saturating well on room air and CPAP at night. - Continue CPAP at night for ANDREW - TRC/DuoNeb - Prednisone tapered to 10mg daily - Symbicort BID Lung nodules - Follow up CT Chest outpatient Infection: Bronchitis/Pneumonia Sputum culture is growing MRSA and patient is positive for MRSA in the nares. 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 Patient received a total of 5 days of IV antibiotics. Patient remains afebrile in no acute respiratory distress with decreasing requirement of oxygen and doing well off mechanical ventilation. Patient's chest x-ray and ABG are within normal limits. Patient's leukocytosis is likely secondary to steroid use. Infectious disease was consulted. - Continue to monitor vitals and watch off antibiotics - Leukocytosis likely secondary to steroid use - Infectious disease consulted. Appreciate recommendations. Cardiac: Run of VTACH - 8 beats on 01/19 EKG was done on 01/19, showed no change from previous EKG. Troponin <0.01. Discussed with cardiology, Dr. Boston. Per cardiology if repeated episodes, coreg can be increased. - electrolytes repleted today - continue to monitor - if further vtach, may increase dose of carvedilol - cardiology on board. appreciate recommendations History of HTN - continue coreg Diastolic Heart Failure Patient's echo showed mild diastolic dysfunction. During his ICU stay patient was fluid overloaded requiring daily IV Lasix. Patient today appears euvolemic with a normal chest x-ray. - continue to monitor I/O - continue daily weights - avoid excessive fluids Heme: Anemia. Likely 2/2 to iron deficiency anemia with low iron levels. Guiac positive stools on 01/20. H/H stable. - Continue to monitor h/h - Patient will need to follow up with GI for outpatient colonoscopy - Continue PO protonix Metabolic: Alcohol withdrawal - Continue IV Ativan drip and wean as tolerated - Monitor CIWA per protocol - Thiamine, Folic acid, MVM Ailementary: Formal swallow evaluation today after extubating on 01/21. Patient started on a heart healthy puree, nectar thick diet. Patient re-evaluated by swallow therapist on 01/29. Patient's diet was changed to mechanical soft ground with thin liquids. Electrolytes repleted today Diarrhea: Patient has had multiple episodes of loose stools. Continues to have loose stool. Frequency of stools has decreased today. Patient remains afebrile with no abdominal complaints. Likely increased secondary to alcohol withdrawal. Patient' s c.dif was negative. - Continue to monitor stool output Neurology: AMS and agitation 2/2 alcohol withdrawal and back pain: Improving today. - Continue to wean off Ativan per psychiatry. - Patient's IV ativan rate decreased to 3 today. If patient tolerates it, decrease the dose of ativan tomorrow by 1-2. - Morphine PRN , Lidocaine patch, Tylenol PRN Psychiatric Health - Per psychiatry patient's medications have been held - Haldol PRN for agitation (monitor QTc. Do not give for QTc> 475) - Patient will need to follow up with psychiatry outpatient - Social work consult for outpatient rehab, once patient is more stable and coherent Tobacco use Patient reports tobacco use - Nicotine patch given Nephrology: None Podiatry: Patient is status post fusion surgery of his left foot currently in a cast. Spoke to (deck lid fitter, office: [phone], [place]: [phone]). Patient is nonweight bearing on the left leg. - Patient will need to follow up with Dr. Tamayo upon discharge to change the cast - Patient is to remain nonweight bearing on the left foot/leg. - Will have patient out of bed to chair with assistance - PT eval DVT PPx: Lovenox Problem List: 1. Alcohol withdrawal 2. Leukocytosis Pain Ratin Pain Location: back Pain Goal: Pain 7 or less Pain Plan: see above Tomorrow's Labs & Rationales: cbc - leukocytosis icu bundle Plan DVT/Prophylaxis: mechanical, pharmacological Royal Martinez MD 01/29/18 1043: Attending MD Review Statement Attending Sign Off Attending Cosign Statement: I have: examined this patient, reviewed avalbl EMR data, personally reviewd images, discussd w/resident/PA/RN IMCU, discussed mgmt plan w/tulio, discussed mgmt plan w/CM, discussed mgmt plan w/pt, agreed w/resident/PA/RN IMCU, amended to note. Other Findings: Impression 52 year old man * resolving acute hypoxemic respiratory failure, likely to withdrawal symptoms requiring increased sedation * substance dependence, etoh dependence Plan -if leukocytosis persists, will consider ID input, in meantime obtain CXR -taper prednisone by 10mg every 2 days -cont symbicort 160/4.5 2 puffs BID with rinsing of the mouth -f/u crisis/psych recommendations -mvi, folate, thiamine -ciwa monitoring -taper ativan gtt, librium when crisis recommends DVT prophylaxis at all times TTS 35 min
--- NOTE | 2018-01-29 10:59 | PN- Infect Dx ---
Subjective Subjective: Afebrile on steroids. He feels well with no complaints Objective Last 24 Hrs of Vital Signs/I&O Vital Signs Date Time Temp Pulse Resp B/P B/P Pulse O2 O2 Flow FiO2 Mean Ox Delivery Rate 01/29 1030 96 Room Air Room Air 01/29 0818 84 126/70 / 0818 84 126/700 / 0607 75 95 / 0600 98.7 74 18 126/72 / 0400 98.7 78 20 119/68 / 0400 94 CPAP Room Air 01/29 0347 71 04/ 0020 73 93 04/ 0000 97.0 73 18 121/66 04/ 0000 93 CPAP Room Air 04/ 0000 97.0 75 18 121/66 93 CPAP Room Air 01/28 2200 97.6 80 20 144/85 01/28 2141 97 Room Air 01/28 2141 84 97 01/28 2106 90 119/79 04/ 2000 97.6 80 20 161/80 01/28 1600 99.6 84 20 110/70 96 Room Air 01/28 1145 80 140/70 04 1145 80 140/70 Intake & Output 01/29 1600 /02 0800 / 0000 Intake Total 260 660 Output Total 360 480 Balance -100 180 Intake, IV 160 160 Intake, Oral 100 500 Output, Urine 360 480 Physical Exam Other Physical Findings: He is awake and alert, appearing comfortable and in no acute distress Lungs are clear Heart regular rhythm with no murmur Abdomen is soft, nontender with positive bowel sounds Extremities left leg in a cast Amos catheter remains in place Results Last 24 Hours of Lab Results: Laboratory Tests 01/29 01/29 0530 0415 Chemistry Sodium (137 - 145 mmol/L) 144 Potassium (3.5 - 5.1 mmol/L) 3.8 Chloride (98 - 107 mmol/L) 110 H Carbon Dioxide (22 - 30 mmol/L) 18 L Anion Gap (5 - 16) 15 BUN (9 - 20 mg/dL) 25 H Creatinine (0.7 - 1.2 mg/dL) 0.9 Estimated GFR (>60 ml/min) > 60 Glucose (65 - 99 mg/dL) 96 Calcium (8.4 - 10.2 mg/dL) 8.9 Phosphorus (2.5 - 4.5 mg/dL) 4.3 Magnesium (1.6 - 2.3 mg/dL) 1.9 Total Bilirubin (0.2 - 1.3 mg/dL) 0.8 AST (17 - 59 U/L) 26 ALT (21 - 72 U/L) 42 Albumin (3.5 - 5.0 g/dL) 3.3 L Hematology CBC w Diff NO MAN DIFF REQ WBC (4.8 - 10.8 /CUMM) 15.3 H RBC (4.70 - 6.10 /CUMM) 4.65 L Hgb (14.0 - 18.0 G/DL) 12.6 L Hct (42 - 52 %) 39.3 L MCV (80.0 - 94.0 FL) 84.6 MCH (27.0 - 31.0 PG) 27.0 MCHC (33.0 - 37.0 G/DL) 32.0 L RDW (11.5 - 14.5 %) 15.5 H Plt Count (130 - 400 /CUMM) 269 MPV (7.4 - 10.4 FL) 8.3 Gran % (42.2 - 75.2 %) 74.6 Lymphocytes % (20.5 - 51.1 %) 15.6 L Monocytes % (1.7 - 9.3 %) 5.8 Eosinophils % (0 - 5 %) 3.4 Basophils % (0.0 - 2.0 %) 0.6 Absolute Granulocytes (1.4 - 6.5 /CUMM) 11.4 H Absolute Lymphocytes (1.2 - 3.4 /CUMM) 2.4 Absolute Monocytes (0.10 - 0.60 /CUMM) 0.9 H Absolute Eosinophils (0.0 - 0.7 /CUMM) 0.5 Absolute Basophils (0.0 - 0.2 /CUMM) 0.1 ESR Westergren (0 - 10 MM) 50 H Last 24 Hours of Maurilio Results: No recent cultures Assessment/Plan ID Impression: Stable, with temperatures remaining normal and white blood cell count decreased from yesterday, off antibiotics with no evidence of any active infection. A sputum culture from 2 days after admission was positive for MRSA, but his respiratory status is stable and his recent chest x-ray is not suggestive of pneumonia; therefore he can continue to be followed off antibiotics. Suggestion: 1. Continue prednisone taper per Pulmonary 2. Remove Amos catheter 3. Continue to follow off antibiotics
[2018-01-30] VITALS (8 sets, daily range): BP systolic 90–132; BP diastolic 62–77
[2018-01-30 04:46] LABS: ABSOLUTE BASOPHIL COUNT 0.1 /CUMM (0.0-0.2); ABSOLUTE EOSINOPHIL COUNT 0.6 /CUMM (0.0-0.7); ABSOLUTE GRANULOCYTE CT 8.9 /CUMM (1.4-6.5); ABSOLUTE LYMPH COUNT 2.7 /CUMM (1.2-3.4); ABSOLUTE MONOCYTE COUNT 0.8 /CUMM (0.10-0.60); BASOPHIL % 0.7 % (0.0-2.0); EOSINOPHIL % 4.3 % (0-5); GRANULOCYTE % 68.4 % (42.2-75.2); HEMATOCRIT 38.9 % (42-52); MEAN CORPUSCULAR HGB CONC 31.9 G/DL (33.0-37.0); MEAN CORPUSCULAR VOLUME 84.9 FL (80.0-94.0); MEAN PLATELET VOLUME 8.4 FL (7.4-10.4); PLATELET COUNT 253 /CUMM (130-400); RBC DISTRIBUTION WIDTH 15.2 % (11.5-14.5); RED BLOOD CELL CT 4.58 /CUMM (4.70-6.10)
--- NOTE | 2018-01-30 07:40 | PN- Resident CRCU ---
Jase KU,Jayne 01/30/18 0739: Subjective HPI/CRCU Issues: Overnight events: No acute events overnight. Patient is no longer in restraints since yesterday. Patient denies any chest pain, shortness of breath, cough. Denies abdominal pain , n/v, sweating, tremors, auditory/visual/tactile hallucinations, headache, visual changes. Patient's gardner was removed. Denies dysuria/hematuria. Patient reports diarrhea, with soft but formed stool. CIWA over 24 hours: 3, 3, 5, 4, 3, 3, 0, 3, 3, 3, 4, 9 Vitals MAXIMUM TEMPERATURE 98.4, heart rate 60s to 80s, sinus rhythm, respiration rate 2228, blood pressure 104/60, saturating at 94-98% on room air with CPAP at night. Currently on IV Ativan drip running at a rate of 3 Total intake:36654, output:56913 Labs: WBC 13.0, H&H 12.4 and 38.9, platelet count 253 Sodium 143, potassium 3.9, chloride 107, bicarbonate 20, anion gap 17, BUN 26, creatinine 0.9, calcium 9.8, phosphorus 4.6, magnesium 1.9, LFTs within normal limits, albumin 3.7 Objective Vital Signs & I&O Last 8 Hrs of Vitals and I&O: Vital Signs Date Time Temp Pulse Resp B/P B/P Pulse O2 O2 Flow FiO2 Mean Ox Delivery Rate 01/30 0924 126/74 04/03 0923 85 126/74 04/03 0800 97.1 89 24 90/62 96 Room Air 04/03 0600 98.1 76 26 122/68 04/03 0552 76 96 04/03 0400 98.1 82 26 110/68 04/03 0400 96 CPAP Room Air 04/03 0300 77 97 04/03 0200 98.4 72 28 132/77 04/03 0042 74 94 04/03 0000 98.4 70 28 107/74 04/03 0000 98.4 70 28 110/70 96 CPAP Room Air 04/03 0000 96 CPAP Room Air 04/02 2200 98.1 72 26 122/80 04/02 2200 80 96 04/02 2145 79 122/80 04/02 2130 96 Room Air Room Air 04/02 2000 98.1 80 30 110/74 04/02 1537 97.7 81 27 142/72 04/ 1537 95 Room Air 04/ 1537 97.8 89 24 110/70 96 Room Air 04/ 1400 78 20 122/71 04/ 1200 97.5 84 18 128/72 04/02 1200 97.5 84 18 128/72 95 Room Air / 1030 96 Room Air Room Air / 1000 82 20 124/73 Intake & Output 01/30 1600 01/30 0800 01/30 0000 Intake Total 119 393 Output Total 250 400 Balance -131 -7 Intake, IV 119 93 Intake, Oral 0 300 Number 0 0 Bowel Movements Output, Urine 250 400 Exam General Appearance: well developed/nourished, alert, awake, comfortable, obese Head: atraumatic, normal appearance Respiratory: normal breath sounds, chest non-tender, no respiratory distress, quiet respiration, lungs clear Cardiovascular: regular rate/rhythm Gastrointestinal: normal bowel sounds, soft, non-tender Extremities: no edema, left leg in cast Cranial Nerves: normal hearing, PERRL, mildly slurred speech Skin: intact, normal color, warm/dry IV Drips IV Drips: IV Ativan Drip Current Medications: Current Medications Sig/Dylan Start time Last Medication Dose Route Stop Time Status Admin Acetaminophen 650 MG .STK-MED ONE 01/29 215 DC PO 01/29 215 Acetaminophen 650 MG Q6P PRN 01/15 2030 AC 01/29 PO 2151 Albuterol Sulfate 3 ML BID 01/16 1000 AC 01/29 INH 2143 Atorvastatin Calcium 20 MG DAILY 01/24 1000 AC 01/30 PO 0924 Budesonide/ 2 PUF BID 01/24 2200 AC 01/30 Formoterol Fumarate INH 0924 Carvedilol 6.25 MG BID 01/15 2200 AC 01/30 PO 0923 Diphenhydramine HCl 50 MG .STK-MED ONE 01/29 1657 DC IM 01/29 1658 Diphenhydramine HCl 25 MG Q6P PRN 01/23 1200 AC 01/29 IV 1703 Enoxaparin Sodium 40 MG DAILY 01/16 1000 AC 01/30 SC 0924 Folic Acid 1 MG DAILY 01/25 1000 AC 01/30 PO 0924 Haloperidol 1 MG Q12P PRN 01/24 1745 AC 01/28 IM 1211 Lidocaine 1 PAT DAILY PRN 01/24 1430 AC 01/28 EXT 1146 Lorazepam 100 MG Q24H 01/29 1430 AC 01/29 Dextrose/Water 500 ML IV 1119 Lorazepam 100 MG Q20H 01/28 0530 DC 01/28 Dextrose/Water 500 ML IV 01/29 1429 1425 Lorazepam 0 Q1P PRN 01/16 1315 DC 01/27 IV 0214 Losartan Potassium 100 MG DAILY 01/16 1000 AC 01/30 PO 0924 Montelukast Sodium 10 MG AT BEDTIME 01/15 2200 AC 01/29 PO 2146 Morphine Sulfate 2 MG Q6-PRN PRN 01/25 0830 AC 01/29 IV 1703 Multivitamins 1 TAB DAILY 01/19 1000 AC 01/30 PO 0924 Nicotine 7 MG DAILY 01/24 1354 AC 01/30 TOP 0924 Omeprazole 40 MG DAILY AC 01/23 0700 AC 01/30 PO 0802 Prednisone 10 MG DAILY 01/28 1000 DC 01/29 PO 01/29 1001 0817 Zinc Oxide 1 ARMIDA BID 01/24 2200 AC 01/30 TOP 0923 Impression/Plan Impression/Problem List Impression: Patient is a 52 year old male past medical history of hypertension, ANDREW on CPAP at night presented to the ED with complains of worsening shortness of breath for the past 2 days. He reported using 2 pints of vodka/day Hospital Course: Mr Vitale was admitted with a diagnosis of acute hypoxic respiratory failure likely secondary tp viral bronchitis with possible pneumonia. He was started on oxygen 3L via NC, as well as IV Ceftriaxone and Azithromycin for pneumonia and a 5 day course of Prednisone 40mg. He was initially started on IV Ativan prn per JUAN DAVID. However, by yesterday evening, the patient was reported to be increasingly agitated and hence he was started on scheduled Ativan 2mg q6. On 01/18 hospital scientist at ~ 5AM, patient was reported to be increasingly agitated requiring frequent doses of IV Ativan. His respiratory status deteriorated with his sats in 80s on 8L of oxygen. He was thus transferred to the ICU for possible intubation and IV Ativan drip to treat for alcohol withdrawal. Respiratory: Acute Hypoxic Respiratory Failure likely secondary to bronchitis and ? underlying pneumonia Patient had increased respiratory effort and was intubated for impending respiratory failure on 01/18 and sedated with IV propofol which was weaned off on 01/19. Sedation was continued with IV Ativan. Patient was successfully extubated on 01/21. Patient's chest x-ray and blood gas are within normal limits. Patient is in no acute respiratory distress this morning saturating well on room air and CPAP at night. Patient has completed a prednisone taper. - Continue CPAP at night for ANDREW - TRC/DuoNeb - Symbicort BID Lung nodules - Follow up CT Chest outpatient Infection: Bronchitis/Pneumonia Sputum culture is growing MRSA and patient is positive for MRSA in the nares. 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 Patient received a total of 5 days of IV antibiotics. Patient remains afebrile in no acute respiratory distress with decreasing requirement of oxygen and doing well off mechanical ventilation. Patient's chest x-ray and ABG are within normal limits. Patient's leukocytosis is likely secondary to steroid use. Infectious disease was consulted. - Continue to monitor vitals and watch off antibiotics - Leukocytosis likely secondary to steroid use - Infectious disease consulted. Appreciate recommendations. Cardiac: Run of VTACH - 8 beats on 01/19 EKG was done on 01/19, showed no change from previous EKG. Troponin <0.01. Discussed with cardiology, Dr. Boston. Per cardiology if repeated episodes, coreg can be increased. - electrolytes repleted today - continue to monitor - if further vtach, may increase dose of carvedilol - cardiology on board. appreciate recommendations History of HTN - continue coreg Diastolic Heart Failure Patient's echo showed mild diastolic dysfunction. During his ICU stay patient was fluid overloaded requiring daily IV Lasix. Patient today appears euvolemic with a normal chest x-ray. - continue to monitor I/O - continue daily weights - avoid excessive fluids Heme: Anemia. Likely 2/2 to iron deficiency anemia with low iron levels. Guiac positive stools on 01/20. H/H stable. - Continue to monitor h/h - Patient will need to follow up with GI for outpatient colonoscopy - Continue PO protonix Metabolic: Alcohol withdrawal on an IV ativan drip. Patient is becoming acedemic with elevated anion gap. Will add librium today to wean off ativan drip as quickly as patient tolerates it . - Repeat electrolytes in AM, lactic acid in AM - Continue IV Ativan drip and wean as tolerated - Started librium today - Monitor CIWA per protocol - Thiamine, Folic acid, MVM Ailementary: Formal swallow evaluation today after extubating on 01/21. Patient started on a heart healthy puree, nectar thick diet. Patient re-evaluated by swallow therapist on 01/29. Patient's diet was changed to mechanical soft ground with thin liquids. Diarrhea: Patient has had multiple episodes of loose stools. Continues to have loose stool. Frequency of stools has decreased today. Patient remains afebrile with no abdominal complaints. Likely increased secondary to alcohol withdrawal. Patient' s c.dif was negative. - Continue to monitor stool output Neurology: AMS and agitation / alcohol withdrawal and back pain: Improving today. - IV ativan rate decreased today to 2. Will continue to wean off as tolerated - PO Librium 50mg q6h added today - Continue CIWA protocol - Morphine PRN , Lidocaine patch, Tylenol PRN Psychiatric Health - Per psychiatry patient's medications have been held - Haldol PRN for agitation (monitor QTc. Do not give for QTc> 475) - Patient will need to follow up with psychiatry outpatient - Social work consult for outpatient rehab, once patient is more stable and coherent Tobacco use Patient reports tobacco use - Nicotine patch Nephrology: None Podiatry: Patient is status post fusion surgery of his left foot currently in a cast. Spoke to (crankshaft straightener, office: [phone], [place]: [phone]). Patient is nonweight bearing on the left leg. Dr. Jc spoke with Dr. Tamayo on 01/29. - Patient will have cast removed by Dr. Jc in the wound care center most likely on 01/31. - Patient is to remain nonweight bearing on the left foot/leg. - Will have patient out of bed to chair with assistance - PT eval DVT PPx: Lovenox Problem List: 1. Alcohol withdrawal 2. Leukocytosis Pain Ratin Pain Location: back pain Tomorrow's Labs & Rationales: CBC - leukocytosis ICU Bundle Plan DVT/Prophylaxis: mechanical, pharmacological Royal Martinez MD 01/30/18 1117: Attending MD Review Statement Attending Sign Off Attending Cosign Statement: I have: examined this patient, reviewed aval EMR data, personally reviewd images, discussd w/resident/PA/SERVICE CENTER TECHNICIAN, discussed mgmt plan w/tulio, discussed mgmt plan w/CM, discussed mgmt plan w/pt, agreed w/resident/PA/SERVICE CENTER TECHNICIAN, amended to note. Other Findings: Impression 52 year old man * resolving acute hypoxemic respiratory failure, likely to withdrawal symptoms requiring increased sedation * substance dependence, etoh dependence Plan -if leukocytosis persists, will consider ID input, in meantime obtain CXR -taper prednisone by 10mg every 2 days -cont symbicort 160/4.5 2 puffs BID with rinsing of the mouth -f/u crisis/psych recommendations -mvi, folate, thiamine -ciwa monitoring -taper ativan gtt, add librium DVT prophylaxis at all times TTS 35 min
--- NOTE | 2018-01-30 10:26 | PN- Infect Dx ---
Subjective Subjective: Afebrile without complaints Objective Last 24 Hrs of Vital Signs/I&O Vital Signs Date Time Temp Pulse Resp B/P B/P Pulse O2 O2 Flow FiO2 Mean Ox Delivery Rate 01/30 0924 126/74 04/03 0923 85 126/74 04/03 0825 95 Room Air 04/03 0825 95 04/03 0800 97.1 89 24 90/62 96 Room Air 04/03 0600 98.1 76 26 122/68 04/03 0552 76 96 04/03 0400 98.1 82 26 110/68 04/03 0400 96 CPAP Room Air 04/03 0300 77 97 04/03 0200 98.4 72 28 132/77 04/03 0042 74 94 04/03 0000 98.4 70 28 107/74 04/03 0000 98.4 70 28 110/70 96 CPAP Room Air 04/03 0000 96 CPAP Room Air 04/02 2200 98.1 72 26 122/80 04/02 2200 80 96 04/02 2145 79 122/80 04/02 2130 96 Room Air Room Air 04/02 2000 98.1 80 30 110/74 04/02 1537 97.7 81 27 142/72 04/02 1537 95 Room Air 04/02 1537 97.8 89 24 110/70 96 Room Air 04/02 1400 78 20 122/71 04/02 1200 97.5 84 18 128/72 04/02 1200 97.5 84 18 128/72 95 Room Air 04/02 1030 96 Room Air Room Air Intake & Output / 1600 04/03 0800 04/03 0000 Intake Total 119 393 Output Total 250 400 Balance -131 -7 Intake, IV 119 93 Intake, Oral 0 300 Number 0 0 Bowel Movements Output, Urine 250 400 Physical Exam Other Physical Findings: He appears comfortable in no acute distress Lungs are clear Heart regular rhythm with no murmur Abdomen is soft, nontender with positive bowel sounds Extremities no cyanosis, clubbing or edema Results Last 24 Hours of Lab Results: Laboratory Tests 01/30 0330 Chemistry Sodium (137 - 145 mmol/L) 143 Potassium (3.5 - 5.1 mmol/L) 3.9 Chloride (98 - 107 mmol/L) 107 Carbon Dioxide (22 - 30 mmol/L) 20 L Anion Gap (5 - 16) 17 H BUN (9 - 20 mg/dL) 26 H Creatinine (0.7 - 1.2 mg/dL) 0.9 Estimated GFR (>60 ml/min) > 60 Glucose (65 - 99 mg/dL) 85 Calcium (8.4 - 10.2 mg/dL) 9.8 Phosphorus (2.5 - 4.5 mg/dL) 4.6 H Magnesium (1.6 - 2.3 mg/dL) 1.9 Total Bilirubin (0.2 - 1.3 mg/dL) 0.7 AST (17 - 59 U/L) 21 ALT (21 - 72 U/L) 39 Albumin (3.5 - 5.0 g/dL) 3.7 Hematology CBC w Diff NO MAN DIFF REQ WBC (4.8 - 10.8 /CUMM) 13.0 H RBC (4.70 - 6.10 /CUMM) 4.58 L Hgb (14.0 - 18.0 G/DL) 12.4 L Hct (42 - 52 %) 38.9 L MCV (80.0 - 94.0 FL) 84.9 MCH (27.0 - 31.0 PG) 27.0 MCHC (33.0 - 37.0 G/DL) 31.9 L RDW (11.5 - 14.5 %) 15.2 H Plt Count (130 - 400 /CUMM) 253 MPV (7.4 - 10.4 FL) 8.4 Gran % (42.2 - 75.2 %) 68.4 Lymphocytes % (20.5 - 51.1 %) 20.7 Monocytes % (1.7 - 9.3 %) 5.9 Eosinophils % (0 - 5 %) 4.3 Basophils % (0.0 - 2.0 %) 0.7 Absolute Granulocytes (1.4 - 6.5 /CUMM) 8.9 H Absolute Lymphocytes (1.2 - 3.4 /CUMM) 2.7 Absolute Monocytes (0.10 - 0.60 /CUMM) 0.8 H Absolute Eosinophils (0.0 - 0.7 /CUMM) 0.6 Absolute Basophils (0.0 - 0.2 /CUMM) 0.1 Last 24 Hours of Maurilio Results: No new cultures Assessment/Plan ID Impression: Stable, with temperatures remaining normal and white blood cell count continuing to decrease with the steroid taper, off antibiotics with no evidence of any active infection. Suggestion: 1. Continue to follow off antibiotics Will no longer follow at this time but please call with any questions
--- NOTE | 2018-01-30 11:07 | PN- Psychiatry ---
See Addendum Assessment/Plan Impression: The patient is emerging from his delirium, but remains confused. The patient was titrated this morning from lorazepam drip running at 3 mg/h to 2.5 mg/h during the visit. 3 mg/h is equivalent to 72 mg per day of lorazepam; reducing this by our recommended 20%, results in a daily reduction of 14.4 mg, rounded to 15 mg. The next step in the taper from 3 mg/h would be 57 mg/day, or approx. 2.5 mg/h. Further daily dose taper should be in similar decrements, or 0.5 mg/h. We would prefer that the patient be titrated to lorazepam drip rate of 0.5 mg ( 12 mg/day), and then switched to scheduled lorazepam at 10 mg/day. We are concerned about incomplete detox, if the lorazepam is reduced too quickly. Dr. Martinez, attending, is concerned about the buildup of propylene glycol, the carrier for lorazepam drips. He would like to transition the patient to oral medications, while at the current drip rate, and proposes starting Librium 50 mg PO q 6 hours. This dosing is the approx. equivalent of lorazepam 2 mg PO q 6 hours, or 8 mg/day. We suggest monitoring the patient closely with CIWA and VS, and being prepared to increase the Librium or change to lorazepam, as indicated. We have no objection to this medication, as long as the liver is functioning well, which is the case here. He will need another IV medication for breakthrough, or as needed, CIWA scores, such as lorazepam push. The "as needed " lorazepam can be converted to Librium as the patient stabilizes. The patient would like to talk to the communication center coordinator, which we suugest when he clears cognitively. He is not objecting to coming to [facility], but will have to be off benzodiazepines and opiates; otherwise, [facility] in [place] may be a better choice. The patient was encouraged to return to and find a sponsor. Suggestion: 1. Continue alcohol detox taper, holding scheduled medications for oversedation or respiratory depression. If the CIWA scores or vital signs deteriorate (Fever, tachycardia, hypertension, tachypnea), please increase the benzodiazepine to a daily dose closer to the current 57 mg/day. 2. Social work consult when the patient is clearer. 3. 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 We will continue to follow. Subjective Subjective: The patient is calm, cooperative laying in his bed, awake with lethargic speech. He is oriented to person, place, year, is off by one month, off by one date, and off by 2 days. He denies auditory, visual or tactile hallucinations, but has some delusional thought content: He feels he is well enough, and he wants to go up to [facility] in [place] today, to see his psychiatrist whom he hasn't seen in a month. He denies suicidal or homicidal ideation. The patient is able to coordinate his thoughts to the point where he is asked about becoming a volunteer timing inspector in the hospital. "I sit home doing nothing, and bad thoughts come." The bad thoughts he describes involve drinking alcohol. Review of Systems Neurological/Psychological: Reports: confusion. Objective Last 24 Hrs of Vital Signs/I&O Vital Signs Date Time Temp Pulse Resp B/P B/P Pulse O2 O2 Flow FiO2 Mean Ox Delivery Rate 04/ 0924 126/74 04/03 0923 85 126/74 04/03 0825 95 Room Air 04/03 0825 95 04/03 0800 97.1 89 24 90/62 96 Room Air 04/03 0600 98.1 76 26 122/68 04/03 0552 76 96 04/03 0400 98.1 82 26 110/68 04/03 0400 96 CPAP Room Air 04/03 0300 77 97 04/03 0200 98.4 72 28 132/77 04/03 0042 74 94 04/03 0000 98.4 70 28 107/74 04/03 0000 98.4 70 28 110/70 96 CPAP Room Air 04/03 0000 96 CPAP Room Air 04/02 2200 98.1 72 26 122/80 04/02 2200 80 96 04/02 2145 79 122/80 04/02 2130 96 Room Air Room Air 04/02 2000 98.1 80 30 110/74 04/02 1537 97.7 81 27 142/72 04/02 1537 95 Room Air 04/02 1537 97.8 89 24 110/70 96 Room Air 04/02 1400 78 20 122/71 04/02 1200 97.5 84 18 128/72 04 1200 97.5 84 18 128/72 95 Room Air Intake & Output 01/30 1600 / 0800 01/30 0000 Intake Total 119 393 Output Total 250 400 Balance -131 -7 Intake, IV 119 93 Intake, Oral 0 300 Number 0 0 Bowel Movements Output, Urine 250 400 Physical Exam: Not performed Physical Exam General Appearance: no apparent distress, awake, lethargic Neurologic/Psychiatric: awake Current Medications: Current Medications Sig/Dylan Start time Last Medication Dose Route Stop Time Status Admin Acetaminophen 650 MG .STK-MED ONE 01/29 215 DC PO 01/29 215 Acetaminophen 650 MG Q6P PRN 01/15 2030 AC 01/29 PO 2151 Albuterol Sulfate 3 ML Q4P PRN 01/30 1030 AC INH Albuterol Sulfate 3 ML BID 01/16 1000 DC 01/29 INH 2143 Atorvastatin Calcium 20 MG DAILY 01/24 1000 AC 01/30 PO 0924 Budesonide/ 2 PUF BID 01/24 2200 AC 01/30 Formoterol Fumarate INH 0924 Carvedilol 6.25 MG BID 01/15 2200 AC 01/30 PO 0923 Chlordiazepoxide HCl 50 MG Q6 01/30 1200 AC PO Diphenhydramine HCl 50 MG .STK-MED ONE 01/29 1657 DC IM 01/29 1658 Diphenhydramine HCl 25 MG Q6P PRN 01/23 1200 AC 01/29 IV 1703 Enoxaparin Sodium 40 MG DAILY 01/16 1000 AC 01/30 SC 0924 Folic Acid 1 MG DAILY 01/25 1000 AC 01/30 PO 0924 Haloperidol 1 MG Q12P PRN 01/24 1745 AC 01/28 IM 1211 Lidocaine 1 PAT DAILY PRN 01/24 1430 AC 01/28 EXT 1146 Lorazepam 100 MG Q24H 01/29 1430 AC 01/29 Dextrose/Water 500 ML IV 1119 Lorazepam 100 MG Q20H 01/28 0530 DC 01/28 Dextrose/Water 500 ML IV 01/29 1429 1425 Lorazepam 0 Q1P PRN 01/16 1315 DC 01/27 IV 0214 Losartan Potassium 100 MG DAILY 01/16 1000 AC 01/30 PO 0924 Montelukast Sodium 10 MG AT BEDTIME 01/15 2200 AC 01/29 PO 2146 Morphine Sulfate 2 MG Q2 HRS NEEDED PRN 01/30 1015 AC 01/30 IV 1016 Morphine Sulfate 2 MG Q6-PRN PRN 01/25 0830 DC 01/29 IV 1703 Multivitamins 1 TAB DAILY 01/19 1000 AC 01/30 PO 0924 Nicotine 7 MG DAILY 01/24 1354 AC 01/30 TOP 0924 Omeprazole 40 MG DAILY AC 01/23 0700 AC 01/30 PO 0802 Zinc Oxide 1 ARMIDA BID 01/24 2200 AC 01/30 TOP 0923 Results Last 24 Hrs of Labs/Mics: Laboratory Tests 01/30 0330 Chemistry Sodium (137 - 145 mmol/L) 143 Potassium (3.5 - 5.1 mmol/L) 3.9 Chloride (98 - 107 mmol/L) 107 Carbon Dioxide (22 - 30 mmol/L) 20 L Anion Gap (5 - 16) 17 H BUN (9 - 20 mg/dL) 26 H Creatinine (0.7 - 1.2 mg/dL) 0.9 Estimated GFR (>60 ml/min) > 60 Glucose (65 - 99 mg/dL) 85 Calcium (8.4 - 10.2 mg/dL) 9.8 Phosphorus (2.5 - 4.5 mg/dL) 4.6 H Magnesium (1.6 - 2.3 mg/dL) 1.9 Total Bilirubin (0.2 - 1.3 mg/dL) 0.7 AST (17 - 59 U/L) 21 ALT (21 - 72 U/L) 39 Albumin (3.5 - 5.0 g/dL) 3.7 Hematology CBC w Diff NO MAN DIFF REQ WBC (4.8 - 10.8 /CUMM) 13.0 H RBC (4.70 - 6.10 /CUMM) 4.58 L Hgb (14.0 - 18.0 G/DL) 12.4 L Hct (42 - 52 %) 38.9 L MCV (80.0 - 94.0 FL) 84.9 MCH (27.0 - 31.0 PG) 27.0 MCHC (33.0 - 37.0 G/DL) 31.9 L RDW (11.5 - 14.5 %) 15.2 H Plt Count (130 - 400 /CUMM) 253 MPV (7.4 - 10.4 FL) 8.4 Gran % (42.2 - 75.2 %) 68.4 Lymphocytes % (20.5 - 51.1 %) 20.7 Monocytes % (1.7 - 9.3 %) 5.9 Eosinophils % (0 - 5 %) 4.3 Basophils % (0.0 - 2.0 %) 0.7 Absolute Granulocytes (1.4 - 6.5 /CUMM) 8.9 H Absolute Lymphocytes (1.2 - 3.4 /CUMM) 2.7 Absolute Monocytes (0.10 - 0.60 /CUMM) 0.8 H Absolute Eosinophils (0.0 - 0.7 /CUMM) 0.6 Absolute Basophils (0.0 - 0.2 /CUMM) 0.1
[2018-01-31] VITALS: BP 114/70
[2018-01-31 02:00] VITALS: BP 127/82
[2018-01-31 03:56] LABS: ABSOLUTE BASOPHIL COUNT 0.1 /CUMM (0.0-0.2); ABSOLUTE EOSINOPHIL COUNT 0.5 /CUMM (0.0-0.7); ABSOLUTE GRANULOCYTE CT 11.8 /CUMM (1.4-6.5); ABSOLUTE MONOCYTE COUNT 0.8 /CUMM (0.10-0.60); BASOPHIL % 0.6 % (0.0-2.0); EOSINOPHIL % 3.2 % (0-5); GRANULOCYTE % 77.9 % (42.2-75.2); HEMATOCRIT 39.3 % (42-52); MEAN CORPUSCULAR HGB 26.9 PG (27.0-31.0); MEAN CORPUSCULAR HGB CONC 31.6 G/DL (33.0-37.0); MEAN CORPUSCULAR VOLUME 84.8 FL (80.0-94.0); MEAN PLATELET VOLUME 8.3 FL (7.4-10.4); PLATELET COUNT 252 /CUMM (130-400); RBC DISTRIBUTION WIDTH 15.1 % (11.5-14.5); RED BLOOD CELL CT 4.64 /CUMM (4.70-6.10); WHITE BLOOD CELL COUNT 15.2 /CUMM (4.8-10.8)
[2018-01-31 04:00] VITALS: BP 119/70
[2018-01-31 06:00] VITALS: BP 106/61
--- NOTE | 2018-01-31 07:22 | PN- Resident CRCU ---
Jase KU,Jayne 01/31/18 0721: Subjective HPI/CRCU Issues: Overnight issues: Patient had no acute events overnight. Patient was seen and examined today. Patient reports continued chronic back pain. Patient denies any chest pain, shortness of breath, abdominal pain, nausea/vomiting, constipation/diarrhea, auditory/tactile/visual hallucinations, tremors, sweating, headache. Patient reports feeling anxious about having his cast removed today. Patient was on IV Ativan 2 mg yesterday. Has been weaned down to 1 mg this morning. CIWA over 24 hours: 1, 1, 0, 1, 1, 1, 1, 1, 2, 1, 2, 3 Vitals: MAXIMUM TEMPERATURE 99.2, heart rate 70s to 80s, sinus rhythm, respiration rate 2230, blood pressure 115 over 74, saturating between 95 and 96% on air with CPAP at night Total intake: 72221, output: 10148 Labs: WBC 15.2 with 77.9% granulocytes and no bands up from 13.0, H&H 12.4 and 39.3, platelets 252 Sodium 140, potassium 4.0, chloride 106, bicarbonate 20, anion gap 14 (down from 17), BUN 27, creatinine 0.8, glucose 156, lactic acid 1.7, calcium 9.4, phosphorus 3.9, magnesium 1.7, LFTs within normal limits Objective Vital Signs & I&O Last 8 Hrs of Vitals and I&O: Vital Signs Date Time Temp Pulse Resp B/P B/P Pulse O2 O2 Flow FiO2 Mean Ox Delivery Rate 01/31 0909 86 128/69 01/31 0909 86 128/69 01/31 0820 95 Room Air 01/31 0820 95 01/31 0600 75 22 106/61 01/31 0549 71 01/31 0400 97.9 75 28 119/70 01/31 0400 96 CPAP Exam General Appearance: well developed/nourished, no apparent distress, alert, awake , comfortable, obese Head: atraumatic, normal appearance Respiratory: normal breath sounds, chest non-tender, no respiratory distress, quiet respiration, lungs clear Cardiovascular: regular rate/rhythm Gastrointestinal: normal bowel sounds, soft, non-tender Extremities: no edema, left leg in cast Cranial Nerves: normal hearing, normal speech, PERRL Skin: intact IV Drips IV Drips: IV Ativan Current Medications: Current Medications Sig/Dylan Start time Last Medication Dose Route Stop Time Status Admin Acetaminophen 650 MG Q6P PRN 01/15 2030 AC 01/29 PO 2151 Al Hydroxide/Mg 30 ML Q4-6 PRN PRN 01/30 2015 AC 01/30 Hydroxide PO 2006 Al Hydroxide/Mg 30 ML .STK-MED ONE 01/30 2002 DC Hydroxide PO 01/30 2003 Albuterol Sulfate 3 ML Q4P PRN 01/30 1030 AC INH Atorvastatin Calcium 20 MG DAILY 01/24 1000 AC 01/31 PO 0909 Budesonide/ 2 PUF BID 01/24 2200 AC 01/31 Formoterol Fumarate INH 0931 Carvedilol 6.25 MG BID 01/15 2200 AC 01/31 PO 0909 Chlordiazepoxide HCl 50 MG Q6 01/30 1200 AC 01/31 PO 0647 Diphenhydramine HCl 25 MG Q6P PRN 01/23 1200 AC 01/29 IV 1703 Enoxaparin Sodium 40 MG DAILY 01/16 1000 AC 01/31 SC 0908 Folic Acid 1 MG DAILY 01/25 1000 AC 01/31 PO 0909 Haloperidol 1 MG Q12P PRN 01/24 1745 AC 01/28 IM 1211 Lidocaine 1 PAT DAILY PRN 01/24 1430 AC 01/31 EXT 0910 Lorazepam 100 MG Q24H 01/29 1430 AC 01/30 Dextrose/Water 500 ML IV 1219 Losartan Potassium 100 MG DAILY 01/16 1000 AC 01/31 PO 0909 Montelukast Sodium 10 MG AT BEDTIME 01/15 2200 AC 01/30 PO 2138 Morphine Sulfate 2 MG Q2 HRS NEEDED PRN 01/30 1015 AC 01/31 IV 0910 Multivitamins 1 TAB DAILY 01/19 1000 AC 01/31 PO 0909 Nicotine 7 MG DAILY 01/24 1354 AC 01/31 TOP 0908 Omeprazole 40 MG DAILY AC 01/23 0700 AC 01/31 PO 0648 Thiamine HCl 50 MG DAILY 01/31 1000 DC PO Thiamine HCl 50 MG DAILY 01/30 1515 AC 01/31 PO 0909 Zinc Oxide 1 ARMIDA BID 01/24 2200 AC 01/31 TOP 0931 Impression/Plan Impression/Problem List Impression: Patient is a 52 year old male past medical history of hypertension, ANDREW on CPAP at night presented to the ED with complains of worsening shortness of breath for the past 2 days. He reported using 2 pints of vodka/day Hospital Course: Mr Vitale was admitted with a diagnosis of acute hypoxic respiratory failure likely secondary tp viral bronchitis with possible pneumonia. He was started on oxygen 3L via NC, as well as IV Ceftriaxone and Azithromycin for pneumonia and a 5 day course of Prednisone 40mg. He was initially started on IV Ativan prn per JUAN DAVID. However, by yesterday evening, the patient was reported to be increasingly agitated and hence he was started on scheduled Ativan 2mg q6. On 01/18 sampler first at ~ 5AM, patient was reported to be increasingly agitated requiring frequent doses of IV Ativan. His respiratory status deteriorated with his sats in 80s on 8L of oxygen. He was thus transferred to the ICU for possible intubation and IV Ativan drip to treat for alcohol withdrawal. Respiratory: Acute Hypoxic Respiratory Failure likely secondary to bronchitis and ? underlying pneumonia Patient had increased respiratory effort and was intubated for impending respiratory failure on 01/18 and sedated with IV propofol which was weaned off on 01/19. Sedation was continued with IV Ativan. Patient was successfully extubated on 01/21. Patient's chest x-ray and blood gas are within normal limits. Patient is in no acute respiratory distress this morning saturating well on room air and CPAP at night. Patient has completed a prednisone taper. - Continue CPAP at night for ANDREW - TRC/DuoNeb - Symbicort BID Lung nodules - Follow up CT Chest outpatient Infection: Bronchitis/Pneumonia Sputum culture is growing MRSA and patient is positive for MRSA in the nares. 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 Patient received a total of 5 days of IV antibiotics. Patient remains afebrile in no acute respiratory distress with decreasing requirement of oxygen and doing well off mechanical ventilation. Patient's chest x-ray and ABG are within normal limits. Patient's leukocytosis is likely secondary to steroid use. Infectious disease was consulted. - Continue to monitor vitals and watch off antibiotics - Leukocytosis likely secondary to steroid use - Infectious disease consulted. Appreciate recommendations. Cardiac: Run of VTACH - 8 beats on 01/19 EKG was done on 01/19, showed no change from previous EKG. Troponin <0.01. Discussed with cardiology, Dr. Boston. Per cardiology if repeated episodes, coreg can be increased. - electrolytes repleted today - continue to monitor - if further vtach, may increase dose of carvedilol - cardiology on board. appreciate recommendations History of HTN - continue coreg Diastolic Heart Failure Patient's echo showed mild diastolic dysfunction. During his ICU stay patient was fluid overloaded requiring daily IV Lasix. Patient today appears euvolemic with a normal chest x-ray. - continue to monitor I/O - continue daily weights - avoid excessive fluids Heme: Anemia. Likely 2/2 to iron deficiency anemia with low iron levels. Guiac positive stools on 01/20. H/H stable. - Continue to monitor h/h - Patient will need to follow up with GI for outpatient colonoscopy - Continue PO protonix Metabolic: Alcohol withdrawal on an IV ativan drip. - Repeat electrolytes in AM, lactic acid in AM - Continue IV Ativan drip and wean as tolerated - Started librium today - Monitor CIWA per protocol - Thiamine, Folic acid, MVM Ailementary: Formal swallow evaluation today after extubating on 01/21. Patient started on a heart healthy puree, nectar thick diet. Patient re-evaluated by swallow therapist on 01/29. Patient's diet was changed to mechanical soft ground with thin liquids. Re-evaluated on 01/31. Upgraded to chopped with thin liquids. Diarrhea: Patient has had multiple episodes of loose stools. Continues to have loose stool. Frequency of stools has decreased today. Patient remains afebrile with no abdominal complaints. Likely increased secondary to alcohol withdrawal. Patient' s c.dif was negative. - Continue to monitor stool output Neurology: AMS and agitation 2/2 alcohol withdrawal and back pain: Improving today. Patient's CIWA max was 3 over the past 24 hours. He was weaned off IV ativan drip which was discontinued this afternoon. - Continue PO Librium 50mg q6h and IV Ativan PRN per CIWA protocol - Morphine PRN , Lidocaine patch, Tylenol PRN Psychiatric Health - Per psychiatry patient's medications have been held - Haldol PRN for agitation (monitor QTc. Do not give for QTc> 475) - Patient will need to follow up with psychiatry outpatient - Social work consult for outpatient rehab, once patient is more stable and coherent Tobacco use Patient reports tobacco use - Nicotine patch Nephrology: None Podiatry: Patient is status post fusion surgery of his left foot currently in a cast. Spoke to (party plan demonstrator, office: [phone], artesian: [phone]). Patient is nonweight bearing on the left leg. Dr. Jc spoke with Dr. Tamayo on 01/29. Patient had cast changed by Dr. Jc in the wound care on . - Patient is to remain nonweight bearing on the left foot/leg. - Will have patient out of bed to chair with assistance - PT eval - Follow up with Dr. Tamayo upon discharge. DVT PPx: Lovenox Problem List: 1. Alcohol withdrawal 2. Leukocytosis Pain Ratin Pain Location: back pain Tomorrow's Labs & Rationales: cbc - leukocytosis bep Plan DVT/Prophylaxis: mechanical, pharmacological Royal Martinez MD 01/31/18 1231: Attending MD Review Statement Attending Sign Off Attending Cosign Statement: I have: examined this patient, reviewed avalbl EMR data, personally reviewd images, discussd w/resident/PA/BLASTING CONTRACT MINER, discussed mgmt plan w/tulio, discussed mgmt plan w/CM, discussed mgmt plan w/pt, agreed w/resident/PA/BLASTING CONTRACT MINER, amended to note. Other Findings: Impression 52 year old man * resolving acute hypoxemic respiratory failure, likely to withdrawal symptoms requiring increased sedation * substance dependence, etoh dependence Plan -cont symbicort 160/4.5 2 puffs BID with rinsing of the mouth -f/u crisis/psych recommendations -mvi, folate, thiamine -ciwa monitoring -taper ativan gtt, librium -left foot cast per podiatry DVT prophylaxis at all times TTS 35 min TTS 35 min
[2018-01-31 08:00] VITALS: BP 120/70
[2018-01-31 15:20] VITALS: BP 104/60
--- NOTE | 2018-01-31 16:44 | Transfer of Care Summary ---
Hospital Course Course Hospital Course: Patient is a 52 year old male past medical history of hypertension, ANDREW on CPAP at night presented to the ED with complains of worsening shortness of breath for the past 2 days. He reported using 2 pints of vodka/day Patient was initially admitted to general medicine with a diagnosis of acute hypoxic respiratory failure likely secondary to viral bronchitis with possible pneumonia. He was started on oxygen 3L via NC, as well as IV Ceftriaxone and Azithromycin for pneumonia and a 5 day course of Prednisone 40mg. He was initially started on IV Ativan prn per CIWA. However became increasingly agitated and was started on scheduled Ativan 2mg q6 on 01/16. 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 His respiratory status deteriorated with his sats in 80s on 8L of oxygen. Patient was transferred to ICU for impending respiratory failure and IV ativan drip. In the ICU patient was managed for the following: Problems: 1. Acute Hypoxic Respiratory Failure 2/2 Bronchitis/Pneumonia 2. Acute alcohol withdrawal requiring IV Ativan drip 3. Diastolic Heart Failure 4. Nonsustained Ventricular Tachycardia 5. Chronic Anemia 6. Chronic back pain 7. Left leg pain s/p fall and fusion 8. History of HTN 9. History of Depression 10. History of ANDREW 11. Subcentimeter lung nodules with central adenopathy Acute Hypoxic Respiratory Failure 2/2 Bronchitis/Pneumonia in setting of Obstructive Sleep Apnea and Alcohol Withdrawal Patient had increased respiratory effort and was intubated for impending respiratory failure on 01/18 and sedated with IV propofol which was weaned off on 01/19. Sedation was continued with IV Ativan. Patient was successfully extubated on 01/21. Patient received IV antibiotics for pneumonia and IV Solu- medrol and completed a steroid taper in the ICU. Patient's sputum culture grew MRSA which was not treated as it is likely colonization. ID was consulted. Patient was watched off antibiotics after the initial course. - Continue CPAP at night for NADREW - TRC/DuoNeb - Symbicort BID Alcohol Withdrawal Patient required an ativan drip on transfer to the ICU. Patient was weaned off very slowly with initial increase in ativan requirement. Ativan drip was discontinued on 01/31. Patient was started on PO librium. - continue PO librium and titrate based on CIWA and PRN Ativan requirements - continue to monitor with CIWA protocol - social work consulted - continue multivitamin, thiamine, folic acid Subcentimeter Lung Nodules with Prominent Central Adenopathy CTA showed multiple lung nodules with prominant central adenopathy. Patient will require repeat CT to rule out malignancy. - Follow up CT Chest Outpatient in ~3 months with PCP Nonsustained Ventricular Tachycardia Patient had a run of ventricular tachycardia with 8 beats on 01/19. There were no EKG changes. Troponin was negative. Electrolytes were repleted. Cardiology was consulted. - continue to monitor - if further vtach, may increase dose of carvedilol - cardiology on board. appreciate recommendations History of HTN - continue coreg Diastolic Heart Failure Patient's echo showed mild diastolic dysfunction. Upon transfter to ICU patient was clinically volume overloaded. Patient was diuresed with IV lasix. Patient is currently euvolemic. - continue to monitor I/O - continue daily weights - avoid excessive fluids Chronic Anemia Likely 2/2 to iron deficiency anemia with low iron levels. Guiac positive stools on 01/20. H/H stable. - Continue to monitor h/h - Patient will need to follow up with GI for outpatient colonoscopy Psychiatric Health - Per psychiatry patient's medications have been held - Haldol PRN for agitation (monitor QTc. Do not give for QTc> 475) - Patient will need to follow up with psychiatry outpatient. - Melatonin for sleep Tobacco use Patient reports tobacco use - Daily nicotine patch - Smoking cessation education prior to discharge Left leg pain s/p fusion dewey Patient is status post fusion surgery of his left foot currently in a cast. Spoke to (hat lining blocker, office: [phone], mchenry: [phone]). Patient is nonweight bearing on the left leg. Dr. Jc spoke with Dr. Tamayo on 01/29. Patient had cast changed by Dr. Jc in the wound care on . - Patient is to remain nonweight bearing on the left foot/leg. - Will have patient out of bed to chair with assistance - PT eval - Follow up with Dr. Tamayo upon discharge. DVT PPx: Lovenox Diet: Heart Healthy (chopped with thin liquids) Assessment/Plan: See above Tobacco use Patient reports tobacco use - Nicotine patch Nephrology: None Podiatry: Patient is status post fusion surgery of his left foot currently in a cast. Spoke to (hat lining blocker, office: [phone], mchenry: [phone]). Patient is nonweight bearing on the left leg. Dr. Jc spoke with Dr. Tamayo on 01/29. Patient had cast changed by Dr. Jc in the wound care on . - Patient is to remain nonweight bearing on the left foot/leg. - Will have patient out of bed to chair with assistance - PT eval - Follow up with Dr. Tamayo upon discharge.
--- NOTE | 2018-01-31 17:56 | PN- Psychiatry ---
Assessment/Plan Impression: The patient's cognition is improving daily, as he nears the end of his benzodiazepine taper for alcohol withdrawal. The lorazepam IV drip was running at 1 mg/h as of 0700, was reduced to 0.5 mg/h at 0900, and the drip was stopped at 1100. Chlordiazepoxide 50 mg by mouth every 6 hours was initiated. The patient was in no distress when I visited him at 1140. The patient will probably be ready to participate in an interview with our medical records supervisor, to help determine aftercare planning either today or tomorrow. Suggestion: 1. Continue the alcohol detox benzodiazepine taper protocol. Hold chlordiazepoxide/Librium for oversedation or respiratory depression. Please advise us if his CIWA scores increase or vital signs deteriorate, and we assist you in determining the next steps. 1a. The next titration for chlordiazepoxide/Librium, provided CIWA remains low, would be chlordiazepoxide 40 mg PO q 6 hours, which can begin 4/18 AM. 2. Social work consult 3. I will start melatonin 5 mg for insomnia. We will continue to follow along with you. Subjective Subjective: The patient is sitting up in bed eating his lunch. He is alert, oriented to person, place, month, day and year. He denies auditory, visual or tactile hallucinations and presents no elyse delusions. He denies suicidal or homicidal ideation. He reports that he has been having difficulty sleeping, and would like to try a melatonin. He reports that he has no benzodiazepines or opiates at home. Review of Systems Neurological/Psychological: Reports: no symptoms. Objective Last 24 Hrs of Vital Signs/I&O Vital Signs Date Time Temp Pulse Resp B/P B/P Pulse O2 O2 Flow FiO2 Mean Ox Delivery Rate 01/31 1520 97.8 85 16 104/60 97 Room Air 01/31 0909 86 128/69 01/31 0909 86 128/69 01/31 0820 95 Room Air 01/31 0820 95 01/31 0800 Room Air 01/31 0800 97.7 86 17 120/70 95 Room Air Room Air 01/31 0600 75 22 106/61 01/31 0549 71 / 0400 97.9 75 28 119/70 01/31 0400 96 CPAP 01/31 0200 78 26 127/82 01/31 0104 78 93 01/31 0000 97.8 78 24 114/70 01/31 0000 97.8 78 24 114/70 94 CPAP 01/31 0000 94 CPAP 01/302 80 96 01/300 94 Room Air 01/30 2200 82 28 123/68 01/30 2138 75 120/80 01/31 2000 98.0 83 17 112/66 01/30 2000 96 Room Air Intake & Output 01/31 1600 01/31 0800 01/31 0000 Intake Total 618 161 682 Output Total 250 300 300 Balance 368 -139 382 Intake, IV 18 61 62 Intake, Oral 600 100 620 Number 1 1 0 Bowel Movements Output, Urine 250 300 300 Physical Exam: not performed Physical Exam General Appearance: no apparent distress, alert, awake, comfortable Neurologic/Psychiatric: awake, alert, oriented x 3 Current Medications: Current Medications Sig/Dylan Start time Last Medication Dose Route Stop Time Status Admin Acetaminophen 650 MG Q6P PRN 01/15 2030 AC 01/29 PO 2151 Al Hydroxide/Mg 30 ML Q4-6 PRN PRN 01/30 2015 AC 01/30 Hydroxide PO 2006 Al Hydroxide/Mg 30 ML .STK-MED ONE 01/30 2002 DC Hydroxide PO 01/30 2003 Albuterol Sulfate 3 ML Q4P PRN 01/30 1030 AC INH Atorvastatin Calcium 20 MG DAILY 01/24 1000 AC 01/31 PO 0909 Budesonide/ 2 PUF BID 01/24 2200 AC 01/31 Formoterol Fumarate INH 0931 Carvedilol 6.25 MG BID 01/15 2200 AC 01/31 PO 0909 Chlordiazepoxide HCl 50 MG Q6 01/30 1200 AC 01/31 PO 1730 Diphenhydramine HCl 25 MG Q6P PRN 01/23 1200 AC 01/29 IV 1703 Enoxaparin Sodium 40 MG DAILY 01/16 1000 AC 01/31 SC 0908 Folic Acid 1 MG DAILY 01/25 1000 AC 01/31 PO 0909 Haloperidol 1 MG Q12P PRN 01/24 1745 AC 01/28 IM 1211 Lidocaine 1 PAT DAILY PRN 01/24 1430 AC 01/31 EXT 0910 Lorazepam 100 MG Q24H 01/29 1430 DC 01/30 Dextrose/Water 500 ML IV 1219 Losartan Potassium 100 MG DAILY 01/16 1000 AC 01/31 PO 0909 Montelukast Sodium 10 MG AT BEDTIME 01/15 2200 AC 01/30 PO 2138 Morphine Sulfate 2 MG Q2 HRS NEEDED PRN 01/30 1015 AC 01/31 IV 1518 Multivitamins 1 TAB DAILY 01/19 1000 AC 01/31 PO 0909 Nicotine 7 MG DAILY 01/24 1354 AC 01/31 TOP 0908 Omeprazole 40 MG DAILY AC 01/23 0700 AC 01/31 PO 0648 Thiamine HCl 50 MG DAILY 01/30 1515 AC 01/31 PO 0909 Zinc Oxide 1 ARMIDA BID 01/24 2200 AC 01/31 TOP 0931 Results Last 24 Hrs of Labs/Mics: Laboratory Tests 01/31 0325 Chemistry Sodium (137 - 145 mmol/L) 140 Potassium (3.5 - 5.1 mmol/L) 4.0 Chloride (98 - 107 mmol/L) 106 Carbon Dioxide (22 - 30 mmol/L) 20 L Anion Gap (5 - 16) 14 BUN (9 - 20 mg/dL) 27 H Creatinine (0.7 - 1.2 mg/dL) 0.8 Estimated GFR (>60 ml/min) > 60 Glucose (65 - 99 mg/dL) 156 H Lactic Acid (0.7 - 2.1 mmol/L) 1.7 Calcium (8.4 - 10.2 mg/dL) 9.4 Phosphorus (2.5 - 4.5 mg/dL) 3.9 Magnesium (1.6 - 2.3 mg/dL) 1.7 Total Bilirubin (0.2 - 1.3 mg/dL) 0.6 AST (17 - 59 U/L) 22 ALT (21 - 72 U/L) 41 Albumin (3.5 - 5.0 g/dL) 3.6 Hematology CBC w Diff NO MAN DIFF REQ WBC (4.8 - 10.8 /CUMM) 15.2 H RBC (4.70 - 6.10 /CUMM) 4.64 L Hgb (14.0 - 18.0 G/DL) 12.4 L Hct (42 - 52 %) 39.3 L MCV (80.0 - 94.0 FL) 84.8 MCH (27.0 - 31.0 PG) 26.9 L MCHC (33.0 - 37.0 G/DL) 31.6 L RDW (11.5 - 14.5 %) 15.1 H Plt Count (130 - 400 /CUMM) 252 MPV (7.4 - 10.4 FL) 8.3 Gran % (42.2 - 75.2 %) 77.9 H Lymphocytes % (20.5 - 51.1 %) 13.0 L Monocytes % (1.7 - 9.3 %) 5.3 Eosinophils % (0 - 5 %) 3.2 Basophils % (0.0 - 2.0 %) 0.6 Absolute Granulocytes (1.4 - 6.5 /CUMM) 11.8 H Absolute Lymphocytes (1.2 - 3.4 /CUMM) 2.0 Absolute Monocytes (0.10 - 0.60 /CUMM) 0.8 H Absolute Eosinophils (0.0 - 0.7 /CUMM) 0.5 Absolute Basophils (0.0 - 0.2 /CUMM) 0.1
[2018-02-01] VITALS: BP 138/60
[2018-02-01 05:48] LABS: ABSOLUTE BASOPHIL COUNT 0.1 /CUMM (0.0-0.2); ABSOLUTE EOSINOPHIL COUNT 0.5 /CUMM (0.0-0.7); ABSOLUTE GRANULOCYTE CT 5.4 /CUMM (1.4-6.5); ABSOLUTE MONOCYTE COUNT 0.6 /CUMM (0.10-0.60); BASOPHIL % 0.7 % (0.0-2.0); EOSINOPHIL % 5.6 % (0-5); GRANULOCYTE % 62.7 % (42.2-75.2); MEAN CORPUSCULAR HGB 26.8 PG (27.0-31.0); MEAN CORPUSCULAR HGB CONC 31.7 G/DL (33.0-37.0); MEAN CORPUSCULAR VOLUME 84.3 FL (80.0-94.0); MEAN PLATELET VOLUME 8.4 FL (7.4-10.4); PLATELET COUNT 207 /CUMM (130-400); RBC DISTRIBUTION WIDTH 15.3 % (11.5-14.5); WHITE BLOOD CELL COUNT 8.5 /CUMM (4.8-10.8)
--- NOTE | 2018-02-01 07:34 | PN- Resident CRCU ---
Jase KU,Jayne 02/01/18 0734: Subjective HPI/CRCU Issues: Overnight events: No acute events overnight. Patient did not require any PRN ativan. Patient was sitting in up in bed, eating breakfast this morning. Patient reports no symptoms except for back pain. Patient denies SOB, chest pain, fever/chills, hallucinations, tremors, n/v/c/d, abdominal pain, dysuria/hematuria. Vitals: MAXIMUM TEMPERATURE 98.4, heart rate 70s to 80s, respiration rate 16-18, blood pressure 138/60, saturating at 93-97% on room air and CPAP at night CIWA: 1, 3, 0, 0, 0, 3, 0, 0, 0 Labs: WBC 8.5, H&H 12.1 and 38.0, platelets 207 Sodium 143, potassium 3.7, chloride 110, bicarbonate 19, anion 14, BUN 21, creatinine 0.7, glucose 108, calcium 8.8, phosphorus 3.6, magnesium 1.6, LFTs within normal limits Objective Vital Signs & I&O Last 8 Hrs of Vitals and I&O: Vital Signs Date Time Temp Pulse Resp B/P B/P Pulse O2 O2 Flow FiO2 Mean Ox Delivery Rate 02/01 1023 96 Room Air Room Air 02/01 0800 97.8 80 18 118/80 95 Room Air Exam General Appearance: well developed/nourished, no apparent distress, alert, awake , comfortable, obese Head: atraumatic, normal appearance Respiratory: normal breath sounds, chest non-tender, no respiratory distress, quiet respiration, lungs clear Cardiovascular: regular rate/rhythm Gastrointestinal: normal bowel sounds, soft, non-tender Extremities: no edema, left leg in cast Cranial Nerves: normal hearing, normal speech, PERRL Skin: intact Current Medications: Current Medications Sig/Dylan Start time Last Medication Dose Route Stop Time Status Admin Acetaminophen 650 MG .STK-MED ONE 01/31 2133 DC PO 01/31 2134 Acetaminophen 650 MG Q6P PRN 01/15 2030 AC 02/01 PO 0855 Al Hydroxide/Mg 30 ML Q4-6 PRN PRN 01/30 2015 AC 01/30 Hydroxide PO 2006 Albuterol Sulfate 3 ML Q4P PRN 01/30 1030 AC INH Atorvastatin Calcium 20 MG DAILY 01/24 1000 AC 02/01 PO 0851 Budesonide/ 2 PUF BID 01/24 2200 AC 02/01 Formoterol Fumarate INH 0904 Carvedilol 6.25 MG BID 01/15 2200 AC 02/01 PO 0850 Chlordiazepoxide HCl 50 MG Q8 02/01 1400 DC PO Chlordiazepoxide HCl 40 MG Q6 02/01 1200 UNVr PO Chlordiazepoxide HCl 50 MG Q6 01/30 1200 DC 05 PO 0501 Diphenhydramine HCl 25 MG Q6P PRN 01/23 1200 AC 01/29 IV 1703 Enoxaparin Sodium 40 MG DAILY 01/16 1000 AC 02/01 SC 0849 Folic Acid 1 MG DAILY 01/25 1000 AC 02/01 PO 0850 Haloperidol 1 MG Q12P PRN 01/24 1745 AC 01/28 IM 1211 Lidocaine 1 PAT DAILY PRN 01/24 1430 AC 02/01 EXT 0850 Lorazepam 100 MG Q24H 01/29 1430 DC 01/30 Dextrose/Water 500 ML IV 1219 Losartan Potassium 100 MG DAILY 01/16 1000 AC 02/01 PO 0851 Melatonin 5 MG AT BEDTIME NEED.. 01/31 2200 AC 01/31 PO 2131 Montelukast Sodium 10 MG AT BEDTIME 01/15 2200 AC 01/31 PO 2131 Morphine Sulfate 2 MG Q2 HRS NEEDED PRN 01/30 1015 DC 02/01 IV 0502 Multivitamins 1 TAB DAILY 01/19 1000 AC 02/01 PO 0850 Nicotine 7 MG DAILY 01/24 1354 AC 02/01 TOP 0850 Omeprazole 40 MG DAILY AC 01/23 0700 AC 02/01 PO 0501 Oxycodone HCl 10 MG Q12 02/01 1000 AC 02/01 PO 1002 Oxycodone/ 1 TAB Q4-6 PRN PRN 02/01 0945 AC Acetaminophen PO Thiamine HCl 50 MG DAILY 01/30 1515 AC 02/01 PO 0851 Zinc Oxide 1 ARMIDA BID 01/24 2200 AC 02/01 TOP 0849 Impression/Plan Impression/Problem List Impression: Patient is a 52 year old male past medical history of hypertension, ANDREW on CPAP at night presented to the ED with complains of worsening shortness of breath for the past 2 days. He reported using 2 pints of vodka/day Hospital Course: Mr Vitale was admitted with a diagnosis of acute hypoxic respiratory failure likely secondary tp viral bronchitis with possible pneumonia. He was started on oxygen 3L via NC, as well as IV Ceftriaxone and Azithromycin for pneumonia and a 5 day course of Prednisone 40mg. He was initially started on IV Ativan prn per JUAN DAVID. However, by yesterday evening, the patient was reported to be increasingly agitated and hence he was started on scheduled Ativan 2mg q6. 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 His respiratory status deteriorated with his sats in 80s on 8L of oxygen. He was thus transferred to the ICU for possible intubation and IV Ativan drip to treat for alcohol withdrawal. Respiratory: Acute Hypoxic Respiratory Failure likely secondary to bronchitis and ? underlying pneumonia Patient had increased respiratory effort and was intubated for impending respiratory failure on 01/18 and sedated with IV propofol which was weaned off on 01/19. Sedation was continued with IV Ativan. Patient was successfully extubated on 01/21. Patient's chest x-ray and blood gas are within normal limits. Patient is in no acute respiratory distress this morning saturating well on room air and CPAP at night. Patient has completed a prednisone taper. - Continue CPAP at night for ANDREW - TRC/DuoNeb - Symbicort BID Lung nodules - Follow up CT Chest outpatient Infection: Bronchitis/Pneumonia - Resolved Sputum culture is growing MRSA and patient is positive for MRSA in the nares. 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 Patient received a total of 5 days of IV antibiotics. Patient remains afebrile in no acute respiratory distress with decreasing requirement of oxygen and doing well off mechanical ventilation. Patient's chest x-ray and ABG are within normal limits. Patient's leukocytosis is likely secondary to steroid use. Infectious disease was consulted. - Continue to monitor vitals and watch off antibiotics - Leukocytosis likely secondary to steroid use - Infectious disease consulted. Appreciate recommendations. Cardiac: Run of VTACH - 8 beats on 01/19 EKG was done on 01/19, showed no change from previous EKG. Troponin <0.01. Discussed with cardiology, Dr. [place]. Per cardiology if repeated episodes, coreg can be increased. - electrolytes repleted today - continue to monitor - if further vtach, may increase dose of carvedilol - cardiology on board. appreciate recommendations History of HTN - continue coreg Diastolic Heart Failure Patient's echo showed mild diastolic dysfunction. During his ICU stay patient was fluid overloaded requiring daily IV Lasix. Patient today appears euvolemic. - continue to monitor I/O - continue daily weights - avoid excessive fluids Heme: Anemia. Likely 2/2 to iron deficiency anemia with low iron levels. Guiac positive stools on 01/20. H/H stable. - Continue to monitor h/h - Patient will need to follow up with GI for outpatient colonoscopy - Continue PO protonix Metabolic: Alcohol withdrawal. IV ativan drip was discontinued on 01/31. Patient is currently on librium 50mg q6h. CIWA Max was 3 with no PRN Ativan requirement. - Repeat electrolytes in AM - Decreased librium to 40mg PO q6h - Monitor CIWA per protocol - Thiamine, Folic acid, MVM Ailementary: Formal swallow evaluation today after extubating on 01/21. Patient started on a heart healthy puree, nectar thick diet. Patient re-evaluated by swallow therapist on 01/29. Patient's diet was changed to mechanical soft ground with thin liquids. Re-evaluated on 01/31. Upgraded to chopped with thin liquids. Diarrhea: Patient has had multiple episodes of loose stools. Continues to have loose stool. Frequency of stools has decreased today. Patient remains afebrile with no abdominal complaints. Likely increased secondary to alcohol withdrawal. Patient' s c.dif was negative. - Continue to monitor stool output Neurology: AMS and agitation 2/2 alcohol withdrawal and back pain: Improving today. Patient's CIWA max was 3 over the past 24 hours. He was weaned off IV ativan drip which was completed discontinued in the afternoon on 01/31. - Continue PO Librium 40mg q6h and IV Ativan PRN per CIWA protocol - Morphine PRN , Lidocaine patch, Tylenol PRN Psychiatric Health - Per psychiatry patient's medications have been held - Haldol PRN for agitation (monitor QTc. Do not give for QTc> 475) - Patient will need to follow up with psychiatry outpatient - Social work consult for outpatient rehab Tobacco use Patient reports tobacco use - Nicotine patch Nephrology: None Podiatry: Patient is status post fusion surgery of his left foot currently in a cast. Spoke to (exhibit carpenter, office: [phone], henriette: [phone]). Patient is nonweight bearing on the left leg. Dr. Jc spoke with Dr. Tamayo on 01/29. Patient had cast changed by Dr. Jc in the wound care on . - Patient is to remain nonweight bearing on the left foot/leg. - Will have patient out of bed to chair with assistance - PT eval - Follow up with Dr. Tamayo upon discharge. DVT PPx: Lovenox Problem List: 1. Alcohol withdrawal Pain Ratin Pain Location: back pain Tomorrow's Labs & Rationales: cbc bep Plan DVT/Prophylaxis: mechanical, pharmacological Royal Martinez MD 02/01/18 1153: Attending MD Review Statement Attending Sign Off Attending Cosign Statement: I have: examined this patient, reviewed [email or web address] EMR data, personally reviewd images, discussd w/resident/PA/STONE POLISHER, discussed mgmt plan w/tulio, discussed mgmt plan w/CM, discussed mgmt plan w/pt, agreed w/resident/PA/STONE POLISHER, amended to note. Other Findings: Impression 52 year old man * resolving acute hypoxemic respiratory failure, likely to withdrawal symptoms requiring increased sedation * substance dependence, etoh dependence Plan -cont symbicort 160/4.5 2 puffs BID with rinsing of the mouth -f/u crisis/psych recommendations -mvi, folate, thiamine -ciwa monitoring -taper librium DVT prophylaxis at all times TTS 35 min
[2018-02-01 08:00] VITALS: BP 118/80
--- NOTE | 2018-02-01 10:31 | PN- Psychiatry ---
Assessment/Plan Impression: The patient chlordiazepoxide alcohol detox taper will progress today from 50 mg PO every 6 hours, to 50 mg PO every 8 hours, using the 25 mg tablets. If there are 10 mg tablets available, please consider 40 mg PO every 6 hours. He may continue to taper at a rate of 50 mg per day, to off. The patient does not need to start his ADHD medicine while in the hospital. The patient is in agreement to come to [facility] intensive outpatient program. However, to [facility] program is abstinence based, and he may not enroll in the program if he is on scheduled opiates, benzodiazepines or stimulants. The exceptions to this rule or if the patient is finishing of benzodiazepine taper, or there is exceptional circumstances for the use of stimulants/ADHD medications. If abstinence is not achievable, the patient will need to attend another program, such as [facility] in [place]. Another medication sometimes used for ADHD, is bupropion, which is not appropriate for this patient, as he has had several seizures, and that medication can lower the seizure threshold, especially in the presence of alcohol, if he relapses. He is indicating an interest in volunteering here at the [facility] in order to keep himself busy. The volunteer office has furnished an application, which I left with the patient this morning for his completion. The patient has tolerated melatonin 5 mg at bedtime, beginning last night. He reports that he slept better. Suggestion: 1. Please continue the benzodiazepine alcohol detox taper protocol to off. 2. Please advise us if the patient will require opiate pain medication after discharge, so that we can make an appropriate referral to an IOP program for dual track treatment. The patient has been informed that our program is abstinence based, and he will need to abstain from opiates, benzodiazepines and stimulants. This may not be possible, and he may require placement in another program. We will continue to follow along with you. Thank you for this consult. Subjective Subjective: The patient is sitting in his chair, having just had physical therapy. He is not walking yet, but is pivoting. He had a cast on his left foot replaced yesterday, and reports that his pain today is not too bad. He is alert and oriented. He denies auditory and visual hallucinations, and presents no elyse delusions. He denies suicidal or homicidal ideation. He describes his mood as good, and is looking forward to finishing his treatment here in the hospital, and beginning his aftercare. Objective Last 24 Hrs of Vital Signs/I&O Vital Signs Date Time Temp Pulse Resp B/P B/P Pulse O2 O2 Flow FiO2 Mean Ox Delivery Rate 02/01 1023 96 Room Air Room Air 02/01 0800 97.8 80 18 118/80 95 Room Air 04/ 0000 98.4 84 18 138/60 93 Room Air Room Air 01/31 2249 78 95 01/31 2140 68 134/70 01/31 1600 96 Room Air Room Air 01/31 1520 97.8 85 16 104/60 97 Room Air Intake & Output 02/01 1600 02/01 0800 04/ 0000 Intake Total 100 200 Output Total 200 Balance 100 0 Intake, Oral 100 200 Output, Urine 200 Physical Exam: Not performed Physical Exam General Appearance: no apparent distress, alert, awake, comfortable Neurologic/Psychiatric: awake, alert, oriented x 3, abnormal gait Current Medications: Current Medications Sig/Dylan Start time Last Medication Dose Route Stop Time Status Admin Acetaminophen 650 MG .STK-MED ONE 01/31 2133 DC PO 01/31 213 Acetaminophen 650 MG Q6P PRN 01/15 2030 AC 02/01 PO 0855 Al Hydroxide/Mg 30 ML Q4-6 PRN PRN 01/30 2015 AC 01/30 Hydroxide PO 2006 Albuterol Sulfate 3 ML Q4P PRN 01/30 1030 AC INH Atorvastatin Calcium 20 MG DAILY 01/24 1000 AC 02/01 PO 0851 Budesonide/ 2 PUF BID 01/24 2200 AC 02/01 Formoterol Fumarate INH 0904 Carvedilol 6.25 MG BID 01/15 2200 AC 02/01 PO 0850 Chlordiazepoxide HCl 50 MG Q8 02/01 1400 AC PO Chlordiazepoxide HCl 50 MG Q6 01/30 1200 DC 02/01 PO 0501 Diphenhydramine HCl 25 MG Q6P PRN 01/23 1200 AC 01/29 IV 1703 Enoxaparin Sodium 40 MG DAILY 01/16 1000 AC 02/01 SC 0849 Folic Acid 1 MG DAILY 01/25 1000 AC 02/01 PO 0850 Haloperidol 1 MG Q12P PRN 01/24 1745 AC 01/28 IM 1211 Lidocaine 1 PAT DAILY PRN 01/24 1430 AC 02/01 EXT 0850 Lorazepam 100 MG Q24H 01/29 1430 DC 01/30 Dextrose/Water 500 ML IV 1219 Losartan Potassium 100 MG DAILY 01/16 1000 AC 02/01 PO 0851 Melatonin 5 MG AT BEDTIME NEED.. 01/31 2200 AC 01/31 PO 2131 Montelukast Sodium 10 MG AT BEDTIME 01/15 220 AC 01/31 PO 2131 Morphine Sulfate 2 MG Q2 HRS NEEDED PRN 01/30 1015 DC 02/01 IV 0502 Multivitamins 1 TAB DAILY 01/19 1000 AC 02/01 PO 0850 Nicotine 7 MG DAILY 01/24 1354 AC 02/01 TOP 0850 Omeprazole 40 MG DAILY AC 01/23 0700 AC 02/01 PO 0501 Oxycodone HCl 10 MG Q12 02/01 1000 AC 02/01 PO 1002 Oxycodone/ 1 TAB Q4-6 PRN PRN 02/01 0945 AC Acetaminophen PO Thiamine HCl 50 MG DAILY 01/30 1515 AC 02/01 PO 0851 Zinc Oxide 1 ARMIDA BID 01/24 2200 AC 02/01 TOP 0849 Results Last 24 Hrs of Labs/Mics: Laboratory Tests 02/01 0520 Chemistry Sodium (137 - 145 mmol/L) 143 Potassium (3.5 - 5.1 mmol/L) 3.7 Chloride (98 - 107 mmol/L) 110 H Carbon Dioxide (22 - 30 mmol/L) 19 L Anion Gap (5 - 16) 14 BUN (9 - 20 mg/dL) 21 H Creatinine (0.7 - 1.2 mg/dL) 0.7 Estimated GFR (>60 ml/min) > 60 Glucose (65 - 99 mg/dL) 108 H Calcium (8.4 - 10.2 mg/dL) 8.8 Phosphorus (2.5 - 4.5 mg/dL) 3.6 Magnesium (1.6 - 2.3 mg/dL) 1.6 Total Bilirubin (0.2 - 1.3 mg/dL) 0.5 AST (17 - 59 U/L) 21 ALT (21 - 72 U/L) 33 Albumin (3.5 - 5.0 g/dL) 3.2 L Hematology CBC w Diff NO MAN DIFF REQ WBC (4.8 - 10.8 /CUMM) 8.5 RBC (4.70 - 6.10 /CUMM) 4.50 L Hgb (14.0 - 18.0 G/DL) 12.1 L Hct (42 - 52 %) 38.0 L MCV (80.0 - 94.0 FL) 84.3 MCH (27.0 - 31.0 PG) 26.8 L MCHC (33.0 - 37.0 G/DL) 31.7 L RDW (11.5 - 14.5 %) 15.3 H Plt Count (130 - 400 /CUMM) 207 MPV (7.4 - 10.4 FL) 8.4 Gran % (42.2 - 75.2 %) 62.7 Lymphocytes % (20.5 - 51.1 %) 23.6 Monocytes % (1.7 - 9.3 %) 7.4 Eosinophils % (0 - 5 %) 5.6 H Basophils % (0.0 - 2.0 %) 0.7 Absolute Granulocytes (1.4 - 6.5 /CUMM) 5.4 Absolute Lymphocytes (1.2 - 3.4 /CUMM) 2.0 Absolute Monocytes (0.10 - 0.60 /CUMM) 0.6 Absolute Eosinophils (0.0 - 0.7 /CUMM) 0.5 Absolute Basophils (0.0 - 0.2 /CUMM) 0.1
[2018-02-01 16:00] VITALS: BP 120/70
[2018-02-01 19:11] VITALS: BP 140/70
[2018-02-02 05:34] VITALS: BP 128/68
--- NOTE | 2018-02-02 07:23 | PN- Housestaff ---
See Addendum Subjective Follow-up For: EtOH, AHRF s/p intubation Subjective: No overnight events. Transferred from ICU last night. He is complaining of pain in his right foot, asking for his adderall, and saying his pain is poorly controlled. He says that oral morphine has worked better for him in the past. He says that he took methadone in the past and has used IV heroin but now is not interested in using methadone or following up with a clinic. Otherwise, no CP, SOB, abd pain, N/V. He is having some diarrhea. Review of Systems Constitutional: Reports: no symptoms. EENTM: Reports: no symptoms. Cardiovascular: Reports: no symptoms. Respiratory: Reports: no symptoms. Gastrointestinal: Reports: see HPI. Genitourinary: Reports: no symptoms. Musculoskeletal: Reports: see HPI. Skin: Reports: no symptoms. Neurological/Psychological: Reports: no symptoms. Hematologic/Endocrine: Reports: no symptoms. Immunologic/Allergic: Reports: no symptoms. Objective Last 24 Hrs of Vital Signs/I&O Vital Signs Date Time Temp Pulse Resp B/P B/P Pulse O2 O2 Flow FiO2 Mean Ox Delivery Rate 02/02 0534 98.2 79 22 128/68 97 Room Air 02/02 0116 89 96 02/01 2305 86 95 02/01 2124 81 140/70 02/01 1911 98.0 81 18 140/70 95 Room Air 02/01 1825 96 Room Air Room Air 02/01 1600 99.1 76 20 120/70 04/ 1600 99.1 76 20 120/70 97 Room Air 02/01 1023 96 Room Air Room Air 02/01 0800 97.8 80 18 118/80 95 Room Air Intake & Output 02/02 0800 02/02 0000 02/01 1600 Intake Total 480 200 600 Output Total 1 500 Balance 480 199 100 Intake, IV 0 Intake, Oral 480 200 600 Number 1 Bowel Movements Output, Urine 1 500 Physical Exam General Appearance: Alert, Oriented X3, Cooperative, No Acute Distress Cardiovascular: Regular Rate, Normal S1, Normal S2 Lungs: Clear to Auscultation Abdomen: Normal Bowel Sounds, Soft, No Tenderness Extremities: Left foot wrapped, good toe movement. Right foot no edema Current Medications: Current Medications Sig/Dylan Start time Last Medication Dose Route Stop Time Status Admin Acetaminophen 1,000 MG Q8P PRN 02/02 730 UNVr PO Acetaminophen 650 MG .STK-MED ONE 02/01 0855 DC PO 02/01 0856 Acetaminophen 650 MG Q6P PRN 01/15 2030 DC 02/01 PO 0855 Al Hydroxide/Mg 30 ML Q4-6 PRN PRN 01/30 2015 AC 01/30 Hydroxide PO 2006 Albuterol Sulfate 3 ML Q4P PRN 01/30 1030 AC INH Atorvastatin Calcium 20 MG DAILY 01/24 1000 AC 02/01 PO 0851 Budesonide/ 2 PUF BID 01/24 2200 AC 02/01 Formoterol Fumarate INH 2124 Carvedilol 6.25 MG BID 01/15 2200 AC 02/01 PO 2124 Chlordiazepoxide HCl 50 MG Q8 02/01 1400 DC PO Chlordiazepoxide HCl 40 MG Q6 02/01 1200 AC 02/02 PO 0540 Chlordiazepoxide HCl 50 MG Q6 01/30 1200 DC 02/01 PO 0501 Diphenhydramine HCl 25 MG Q6P PRN 01/23 1200 DC 01/29 IV 1703 Enoxaparin Sodium 40 MG DAILY 01/16 1000 AC 02/01 SC 0849 Folic Acid 1 MG DAILY 01/25 1000 AC 02/01 PO 0850 Haloperidol 1 MG Q12P PRN 01/24 1745 AC 01/28 IM 1211 Lidocaine 1 PAT DAILY PRN 01/24 1430 AC 02/01 EXT 0850 Losartan Potassium 100 MG DAILY 01/16 1000 AC 02/01 PO 0851 Magnesium Chloride 64 MG ONCE ONE 02/01 1345 DC 02/01 PO 02/01 1346 1740 Melatonin 5 MG AT BEDTIME NEED.. 01/31 2200 AC 01/31 PO 2131 Montelukast Sodium 10 MG AT BEDTIME 01/15 2200 AC 02/01 PO 2123 Morphine Sulfate 15 MG Q4 HRS NEEDED PRN 02/02 0730 UNVr PO Morphine Sulfate 2 MG Q2 HRS NEEDED PRN 01/30 1015 DC 02/01 IV 0502 Multivitamins 1 TAB DAILY 01/19 1000 AC 02/01 PO 0850 Nicotine 7 MG DAILY 01/24 1354 AC 02/01 TOP 0850 Non-Formulary 0 SEE ADMIN CRITERIA 02/02 730 UNVr Medication ANY Omeprazole 40 MG DAILY AC 01/23 0700 AC 02/02 PO 0544 Oxycodone HCl 10 MG Q12 02/01 1000 DC 02/01 PO 2124 Oxycodone/ 1 TAB Q4-6 PRN PRN 02/01 0945 DC 02/02 Acetaminophen PO 0245 Thiamine HCl 50 MG DAILY 01/30 1515 AC 02/01 PO 0851 Zinc Oxide 1 ARMIDA BID 01/24 2200 AC 02/01 TOP 2124 Assessment/Plan Assessment: Patient is a 52 year old male past medical history of hypertension, ANDREW on CPAP who presented with acute hypoxic respiratory failure secondary to pneumonia initially admitted to [facility], then transferred to ICU. He is status post extended stay in the intensive care unit as well as intubation and subsequent extubation and treatment for alcohol withdrawal. He was transferred back to general medicine on 02/01/2018 after stabilization of his condition. Problem list: 1. Alcohol withdrawal 2. Left leg fracture status post fusion 3. Acute hypoxic respiratory failure, resolved 4. Pneumonia, resolved 5. Lung nodules with central adenopathy 6. Iron deficiency anemia with guaiac positive stool 7. Nonsustained Ventricular Tachycardia #Alcohol withdrawal: The patient was initially started on lorazepam CIWA protocol. After transfer to the ICU, he was increasingly agitated and required a lorazepam drip that was stopped on 01/31/18. He is now being tapered on chlordiazepoxide. He has been scoring 0 on CIWA scale over the past 24 hours. -chlordiazepoxide 40 mg every 6 hours, taper per psych -Appreciate psychiatry recommendations -Continue multivitamin, thiamine, folic acid -Social work consult -Haloperidol 1 mg every 12 hours when necessary agitation #Left leg fracture status post fusion: Patient apparently had a traumatic fall and status post fusion of his left leg. He says he has significant pain from this. (behavioral modification assistant, office: [phone], [place]: [phone]). -PT eval -Follow up with Dr. Tamayo upon discharge. -Nonweightbearing on left foot -Appreciate podiatry recommendations -Pain control #Acute Hypoxic Respiratory Failure secondary to pneumonia: Patient was admitted for shortness of breath. He was intubated on 01/18 and successfully extubated on 01/21. Patient received IV antibiotics for pneumonia and IV methylprednisone and completed a steroid taper in the ICU. Patient's sputum culture grew MRSA which was not treated as it was thought to be colonization. ID was consulted. His respiratory status is now stable. - Continue CPAP at night for ANDREW - TRC/DuoNeb - Symbicort BID #Lung Nodules with Prominent Central Adenopathy: Incidental finding on CT. -Patient will require repeat CT in 3 months to rule out malignancy. #Nonsustained Ventricular Tachycardia: Patient had a run of ventricular tachycardia with 8 beats on 01/19. There were no EKG changes. Troponin was negative. Electrolytes were repleted. Cardiology was consulted and has since signed off. He has had no further episodes. -CTM #Iron deficiency anemia with guaiac positive stool: The patient has anemia with guaiac positive stool. Hemoglobin has been stable though. He has not required any transfusions. -Follow up with GI for outpatient colonoscopy #Chronic medical problems: -Continue other home medications -Talk to psych about restarting amphetamines for ADHD DVT prophylaxis with enoxaparin Heart healthy diet chopped, thin liquids Full code Problem List: 1. Alcohol withdrawal Pain Ratin Pain Location: leg Pain Goal: Remain pain free Pain Plan: see a/p Tomorrow's Labs & Rationales: no
[2018-02-02 08:00] VITALS: BP 128/68
[2018-02-02] MEDS ORDERED: VITAMIN B-150 M1 PO (11:08)
[2018-02-02] MEDS ORDERED: ONE DAILY MULT1 EAC2 PO (11:08)
[2018-02-02] MEDS ORDERED: LIDODERM1 EACH EXT (11:08)
[2018-02-02] MEDS ORDERED: FOLIC ACID1 M1 PO (11:08)
--- NOTE | 2018-02-02 11:14 | Patient Discharge Instructions ---
Discharge Instructions General Discharge Information You were seen/treated for: Acute hypoxic respiratory failure secondary to pneumonia, alcohol withdrawal Watch for these problems: Fever, chest pain, shortness of breath Special Instructions: Please take all medications as directed. Please follow-up with pulmonology, gastroenterology, and the foot surgeon. Please abstain from all alcohol intake. Diet Continue normal diet: Yes Activity Full Activity/No Limits: Yes Acute Coronary Syndrome Inclusion Criteria At DC or during hospital stay patient has or had the following: ACS DIAGNOSIS No Discharge Core Measures Meds if any: Prescribed or Continued at Discharge Meds if any: NOT Prescribed or Continued at Discharge Congestive Heart Failure Inclusion Criteria At DC or during hospital stay patient has or had the following: CHF DIAGNOSIS No Discharge Core Measures Meds if any: Prescribed or Continued at Discharge Meds if any: NOT Prescribed or Continued at Discharge Cerebrovascular accident Inclusion Criteria At DC or during hospital stay patient has or had the following: CVA/TIA Diagnosis No Discharge Core Measures Meds if any: Prescribed or Continued at Discharge Meds if any: NOT Prescribed or Continued at Discharge Venous thromboembolism Inclusion Criteria VTE Diagnosis No VTE Type NONE VTE Confirmed by (Test) NONE Discharge Core Measures - Per Current guidelines, there needs to be overlap - treatment for the first 5 days of Warfarin therapy. - If discharged on Warfarin prior to 5 days of - overlap therapy, the patient will need to be - assessed for post discharge needs including - *Post discharge parental anticoagulation - *Warfarin and/or parental anticoagulation education - *Follow up date to check INR post discharge At least 5 days overlap therapy as Inpatient No Meds if any: Prescribed or Continued at Discharge Note: Overlap Therapy is Warfarin and Anticoagulant Meds if any: NOT Prescribed or Continued at Discharge
--- NOTE | 2018-02-02 11:48 | PN- Psychiatry ---
Assessment/Plan Impression: The patient seems confused about his disposition. He mentions that he may be going to a [facility] for 2 weeks, or he may go home with services. He was observed trying to make an appointment next week with his psychiatry provider, Sara Rios. MST reported that the patient was not compliant with PT order to avoid weight- bearing on his left leg, which has a new cast on it. I reinforced this teaching wit the patient, who will need further instruction. He is nearing the end of his alcohol detox taper protocol, and is currently on chlordiazepoxide 30 mg q 6 hours. The balance of the taper schedule has been ordered by the medical team, and he will receive his last dose on 02/05/18. We would like to have him come to [facility] for dual track, but he may discharge on opiate pain medications, and he may restart his stimulant as an outpatient. Our social media designer may be able to find him a seat at [facility], who will accept patients on these medications. The patient is motivated to heal his leg and avoid alcohol so that he can apply for a job, possibly at , and to go fishing this summer. Suggestion: 1. Please continue the benzodiazepine alcohol detox taper protocol to off: Chlordiazepoxide 30 mg PO q 6 hours for 4 doses, 02/02/18 - 02/03/18, then Chlordiazepoxide 20 mg PO q 6 hours for 4 doses, 02/03/18 - 02/04/18, then Chlordiazepoxide 10 mg PO q 6 hours for 4 doses, 02/04/18 - 02/05/18, then stop 2. Social work consult to assist with aftercare for alcohol abuse. 3. He will need further instruction or reinforcement of the [id number] status on his left leg. The patient is cleared psychiatrically for discharge. Psychiatry is signing off. Please re-consult if other psychiatric matters arise. Thank you for this consult. Subjective Subjective: A+OX3 Denies AH, VH; presents no elyse delusions Denies SI or HI No psychomotor agitation or retardation noted Mood euthymic; congruent affect. Review of Systems Neurological/Psychological: Reports: no symptoms. Objective Last 24 Hrs of Vital Signs/I&O Vital Signs Date Time Temp Pulse Resp B/P B/P Pulse O2 O2 Flow FiO2 Mean Ox Delivery Rate 02/02 1038 Room Air Room Air 02/02 0959 79 12/68 04/06 0959 79 128/68 04/06 0534 98.2 79 22 128/68 97 Room Air 04/06 0116 89 96 04/05 2305 86 95 04/05 2124 81 140/70 04/05 1911 98.0 81 18 140/70 95 Room Air 04/05 1825 96 Room Air Room Air / 1600 99.1 76 20 120/70 04/05 1600 99.1 76 20 120/70 97 Room Air Intake & Output 02/02 1600 02/02 0800 02/02 0000 Intake Total 480 200 Output Total 1 Balance 480 199 Intake, Oral 480 200 Output, Urine 1 Physical Exam: Not performed Physical Exam General Appearance: no apparent distress, alert, awake Neurologic/Psychiatric: awake, alert, oriented x 3, abnormal gait Current Medications: Current Medications Sig/Dylan Start time Last Medication Dose Route Stop Time Status Admin Acetaminophen 1,000 MG Q8P PRN 02/02 0730 AC PO Acetaminophen 650 MG Q6P PRN 01/15 2030 DC 02/01 PO 0855 Al Hydroxide/Mg 30 ML Q4-6 PRN PRN 01/30 2015 AC 01/30 Hydroxide PO 2006 Albuterol Sulfate 3 ML Q4P PRN 01/30 1030 AC INH Atorvastatin Calcium 20 MG DAILY 01/24 1000 AC 02/02 PO 0959 Budesonide/ 2 PUF BID 01/24 2200 AC 02/02 Formoterol Fumarate INH 0959 Carvedilol 6.25 MG BID 01/15 2200 AC 02/02 PO 0959 Chlordiazepoxide HCl 10 MG Q6 02/04 1200 AC PO 02/05 1159 Chlordiazepoxide HCl 20 MG Q6 02/03 1200 AC PO 02/04 1159 Chlordiazepoxide HCl 30 MG Q6 02/02 1200 CAN PO 02/05 1159 Chlordiazepoxide HCl 30 MG Q6 02/02 1200 AC PO 02/03 1159 Chlordiazepoxide HCl 50 MG Q8 02/01 1400 DC PO Chlordiazepoxide HCl 40 MG Q6 02/01 1200 DC 02/02 PO 0540 Diphenhydramine HCl 25 MG Q6P PRN 01/23 1200 DC 01/29 IV 1703 Enoxaparin Sodium 40 MG DAILY 01/16 1000 AC 02/02 SC 0959 Folic Acid 1 MG DAILY 01/25 1000 AC 02/02 PO 0959 Haloperidol 1 MG Q12P PRN 01/24 1745 AC 01/28 IM 1211 Lidocaine 1 PAT DAILY PRN 01/24 1430 AC 02/01 EXT 0850 Lipase/Protease/ 3 CAP WITH MEALS 02/02 0800 AC 02/02 Amylase PO 0958 Losartan Potassium 100 MG DAILY 01/16 1000 AC 02/02 PO 0959 Magnesium Chloride 64 MG ONCE ONE 02/01 1345 DC 02/01 PO 02/01 1346 1740 Melatonin 5 MG AT BEDTIME NEED.. 01/31 2200 AC 01/31 PO 2131 Montelukast Sodium 10 MG AT BEDTIME 01/15 2200 AC 02/01 PO 2123 Morphine Sulfate 15 MG Q6-PRN PRN 02/02 1115 AC PO Morphine Sulfate 15 MG Q4P PRN 02/02 0730 DC 02/02 PO 1011 Multivitamins 1 TAB DAILY 01/19 1000 AC 02/02 PO 0959 Nicotine 7 MG DAILY 01/24 1354 AC 02/01 TOP 0850 Non-Formulary 0 SEE ADMIN CRITERIA 02/02 730 CAN Medication ANY Omeprazole 40 MG DAILY AC 01/23 0700 AC 02/02 PO 0544 Oxycodone HCl 10 MG Q12 02/01 1000 DC 02/01 PO 2124 Oxycodone/ 1 TAB Q4-6 PRN PRN 02/01 0945 DC 02/02 Acetaminophen PO 0245 Thiamine HCl 50 MG DAILY 01/30 1515 AC 02/02 PO 0959 Zinc Oxide 1 ARMIDA BID 01/24 2200 AC 02/02 TOP 0959 Results Last 24 Hrs of Labs/Mics: Laboratory Tests 02/01 0520 Chemistry Sodium (137 - 145 mmol/L) 143 Potassium (3.5 - 5.1 mmol/L) 3.7 Chloride (98 - 107 mmol/L) 110 H Carbon Dioxide (22 - 30 mmol/L) 19 L Anion Gap (5 - 16) 14 BUN (9 - 20 mg/dL) 21 H Creatinine (0.7 - 1.2 mg/dL) 0.7 Estimated GFR (>60 ml/min) > 60 Glucose (65 - 99 mg/dL) 108 H Calcium (8.4 - 10.2 mg/dL) 8.8 Phosphorus (2.5 - 4.5 mg/dL) 3.6 Magnesium (1.6 - 2.3 mg/dL) 1.6 Total Bilirubin (0.2 - 1.3 mg/dL) 0.5 AST (17 - 59 U/L) 21 ALT (21 - 72 U/L) 33 Albumin (3.5 - 5.0 g/dL) 3.2 L Hematology CBC w Diff NO MAN DIFF REQ WBC (4.8 - 10.8 /CUMM) 8.5 RBC (4.70 - 6.10 /CUMM) 4.50 L Hgb (14.0 - 18.0 G/DL) 12.1 L Hct (42 - 52 %) 38.0 L MCV (80.0 - 94.0 FL) 84.3 MCH (27.0 - 31.0 PG) 26.8 L MCHC (33.0 - 37.0 G/DL) 31.7 L RDW (11.5 - 14.5 %) 15.3 H Plt Count (130 - 400 /CUMM) 207 MPV (7.4 - 10.4 FL) 8.4 Gran % (42.2 - 75.2 %) 62.7 Lymphocytes % (20.5 - 51.1 %) 23.6 Monocytes % (1.7 - 9.3 %) 7.4 Eosinophils % (0 - 5 %) 5.6 H Basophils % (0.0 - 2.0 %) 0.7 Absolute Granulocytes (1.4 - 6.5 /CUMM) 5.4 Absolute Lymphocytes (1.2 - 3.4 /CUMM) 2.0 Absolute Monocytes (0.10 - 0.60 /CUMM) 0.6 Absolute Eosinophils (0.0 - 0.7 /CUMM) 0.5 Absolute Basophils (0.0 - 0.2 /CUMM) 0.1
[2018-02-02 14:03] VITALS: BP 130/64
[2018-02-02 16:00] VITALS: BP 130/64
[2018-02-02 20:30] VITALS: BP 124/80
[2018-02-03 06:01] VITALS: BP 144/78
--- NOTE | 2018-02-03 14:11 | Event Note ---
Event Note Event Note: S; pt wants to go home AMA B:patient is a 52 year old male past medical history of hypertension, ANDREW on CPAP who presented with acute hypoxic respiratory failure secondary to pneumonia [facility], then transferred to ICU. He is status post extended stay in the intensive care unit as well as intubation and subsequent extubation and treatment for alcohol withdrawal. He was transferred back to general medicine on 02/01/2018 after stabilization of his condition. A/P -Patient is currently on Librium taper for alcohol abuse and withdrawal. -NON WEIGHT BEARING STATUS, PT IS EXTRMELY NONCOMPLAINT -He has been advised to be discharged to short-term rehabilitation. -He states he wants to smoke and that he will be on the couch all the time -Pt has been repeatedly counseled by me and our attending Dr. Michel about the importance of staying in the hospital however he is refusing -Is alert oriented 3 and has capacity and is able to make all his decisons -He understands the risks associated with leaving the hospital and comprehends that it could lead to worsening of his medical condition and as well. Patient should be discharged to short-term rehabilitation which patient is refusing -CMR has been prepareddone. He will be provided a prescription for Librium and instructions about the taper. -The patient is going to be signing out AMA, despite our multiple attempts.
[2018-02-03 14:25] VITALS: BP 128/70
[2018-02-03] MEDS ORDERED: CHLORDIAZEPOXIDE5 M1 PO (14:38)
--- NOTE | 2018-02-03 17:27 | PN- Att Addend ---
Attending Addendum Attending Brief Note Patient seen and examined at bedside. Discussed with patient as well as patient 's at bedside the care plan. Patient currently on Librium taper for his alcohol abuse and alcohol withdrawal. Patient is nonweightbearing status on his left leg secondary to recent fracture. Patient continues to be noncompliant with his instructions to be nonweightbearing. Patient does not want to stay in the hospital and does not want to be placed in a rehabilitation. I had a lengthy discussion with patient's and patient about staying in the hospital but patient is refusing to stay in the hospital despite myself and his 's recommendations. Patient is refusing nicotine replacement therapy and wants to go out and smoke. I spent about 35-40 minutes trying to explain him the importance of going to rehabilitation as well as quitting alcohol and smoking. Patient signed out AMA.
--- NOTE | 2018-02-04 11:16 | Discharge Summary ---
Visit Information Visit Dates Admission Date: 01/15/18 Discharge Date: 02/03/18 Hospital Course Course Attending Physician: Andreia Linares MD Primary Care Physician: Pedro KU,[facility] Course: Patient is a 52 year old male past medical history of hypertension, ANDREW on CPAP at night presented to the ED with complains of worsening shortness of breath for the past 2 days. He reported using 2 pints of vodka/day Patient was initially admitted to general medicine with a diagnosis of acute hypoxic respiratory failure likely secondary to viral bronchitis with possible pneumonia. He was started on oxygen 3L via [place], as well as IV Ceftriaxone and Azithromycin for pneumonia and a 5 day course of Prednisone 40mg. He was initially started on IV Ativan prn per CIWA. However became increasingly agitated and was started on scheduled Ativan 2mg q6 on 01/16. 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 His respiratory status deteriorated with his sats in 80s on 8L of oxygen. Patient was transferred to ICU for impending respiratory failure and IV ativan drip. After stabilization of his condition, he was transferred to general medicine. On 02/03/18, the patient decided to sign out AGAINST MEDICAL ADVICE. The risks of doing so including possible and deterioration of his medical condition were fully explained to him. The patient was treated for the following problems: 1. Alcohol withdrawal 2. Left leg fracture status post fusion 3. Acute hypoxic respiratory failure 4. Pneumonia 5. Lung nodules with central adenopathy 6. Iron deficiency anemia with guaiac positive stool 7. Nonsustained Ventricular Tachycardia #Alcohol withdrawal: The patient was initially started on lorazepam CIWA protocol. After transfer to the ICU, he was increasingly agitated and required a lorazepam drip that was stopped on 01/31/18. He is now being tapered on chlordiazepoxide. He has been scoring 0 on CIWA scale over the past 24 hours. Psychiatry was consulted and their recommendations were appreciated. We also consulted social work. On 02/03/2018, the patient decided to sign out AGAINST MEDICAL ADVICE. The risks of doing so including deterioration of his medical condition and possible were explained. The patient was prescribed the appropriate outpatient tapering regimen for his chlordiazepoxide as well as alcohol related vitamins. #Left leg fracture status post fusion: Patient apparently had a traumatic fall and status post fusion of his left leg. He says he has significant pain from this. (pediatric orthodontist, office: [phone], [place]: [phone]). His leg was placed in a cast and he will follow-up with Dr. Fang. he is nonweightbearing on the left foot. #Acute Hypoxic Respiratory Failure secondary to pneumonia: Patient was admitted for shortness of breath. He was intubated on 01/18 and successfully extubated on 01/21. Patient received IV antibiotics for pneumonia and IV methylprednisone and completed a steroid taper in the ICU. Patient's sputum culture grew MRSA which was not treated as it was thought to be colonization. ID was consulted. His respiratory status is now stable. #Lung Nodules with Prominent Central Adenopathy: Incidental finding on CT. patient will require repeat CT in 3 months rule out malignancy #Nonsustained Ventricular Tachycardia: Patient had a run of ventricular tachycardia with 8 beats on 01/19. There were no EKG changes. Troponin was negative. Electrolytes were repleted. Cardiology was consulted. He has had no further episodes. #Iron deficiency anemia with guaiac positive stool: The patient has anemia with guaiac positive stool. Hemoglobin has been stable though. He has not required any transfusions. He should follow up with GI for outpatient colonoscopy. #Chronic medical problems: His other home medications were continued. Allergies: Coded Allergies: Penicillins (UNKNOWN 01/15/18) Disposition Summary Disposition Principal Diagnosis: 1. Alcohol withdrawal Additional Diagnosis: 2. Left leg fracture status post fusion 3. Acute hypoxic respiratory failure 4. Pneumonia 5. Lung nodules with central adenopathy 6. Iron deficiency anemia with guaiac positive stool 7. Nonsustained Ventricular Tachycardia Discharge Disposition: left against medical adv Discharge Instructions General Discharge Information Code Status: Full Code Patient's Diet: regular diet Patient's Activity: nonweightbearing on left foot Follow-Up Instructions/Appts: Please take all medications as directed. Please follow-up with pulmonology, gastroenterology, and the foot surgeon. Please abstain from all alcohol intake. Medications at Discharge Discharge Medications: Stop taking the following medications: Methadone HCl (Methadone HCl) 10 MG/ML ORAL.CONC ORAL DAILY Continue taking these medications: Losartan Potassium (Losartan Potassium) 100 MG TABLET 1 Tablet ORAL DAILY Qty = 60 Comments: Last Taken: 4/7/18 Time: 8:00 AM Gabapentin (Gabapentin) 400 MG CAPSULE 2 Capsule ORAL THREE TIMES DAILY Qty = 180 Comments: NOT GIVEN IN HOSPITAL Bupropion HCl (Bupropion XL) 300 MG TAB.ER.24H 1 Tablet ORAL Every Morning Qty = 30 Comments: NOT GIVEN IN HOSPITAL Lipase/Protease/Amylase (Creon Dr 24,000 Units Capsule) 24-76-120K CAPSULE.DR 3 Tablet ORAL THREE TIMES DAILY Qty = 180 Comments: NOT GIVEN IN HOSPITAL Dextroamphetamine/Amphetamine (Dextroamp-Amphetamin 30 MG Tab) 30 MG TABLET 1 Tablet ORAL TWICE DAILY Qty = 60 Comments: NOT GIVEN IN HOSPITAL Carvedilol (Carvedilol) 6.25 MG TABLET 1 Tablet ORAL TWICE DAILY Qty = 60 Comments: Last Taken: 02/03/18 Time: 8:00 AM Zolpidem Tartrate (Zolpidem Tartrate) 10 MG TABLET 1 Tablet ORAL Every night Qty = 30 Comments: NOT GIVEN IN HOSPITAL Rudolph-3 Acid Ethyl Esters (Rudolph-3 Acid Ethyl Esters) 1 GRAM CAPSULE 1 Capsule ORAL THREE TIMES DAILY Qty = 120 Comments: NOT GIVEN IN HOSPITAL Testosterone (Androgel) 20.25/1.25 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 40.5 On the skin DAILY Qty = 150 Comments: NOT GIVEN IN HOSPITAL Ibuprofen (Ibuprofen) 800 MG TABLET 1 Tablet ORAL THREE TIMES DAILY as needed for pain Qty = 30 Comments: NOT GIVEN IN HOSPITAL Atorvastatin Calcium (Atorvastatin Calcium) 20 MG TABLET 1 Tablet ORAL DAILY Comments: Last Taken: 02/03/18 Time: 8:00 AM Start taking the following new medications: Lidocaine (Lidoderm) 5 % ADH..PATCH 1 Patch ON SKIN DAILY as needed for back pain Qty = 30 No Refills Comments: Last Taken: 02/01/18 Time: 9:00 AM Folic Acid (Folic Acid) 1 MG TABLET 1 Milligram ORAL DAILY Qty = 30 No Refills Comments: Last Taken: 02/03/18 Time: 8:00 AM Thiamine HCl (Vitamin B-1) 50 MG TABLET 50 Milligram ORAL DAILY Qty = 30 No Refills Comments: Last Taken: 02/03/18 Time: 8:00 AM Multivitamin (One Daily Multivitamin) 1 EACH TABLET 1 Tablet ORAL DAILY Qty = 30 No Refills Comments: Last Taken: 02/03/18 Time: 8:00 AM Chlordiazepoxide HCl (Chlordiazepoxide HCl) 5 MG CAPSULE 1 Capsule ORAL SEE INSTRUCTIONS Qty = 14 No Refills Instructions: TAKE 2 TABS, 4 TIMES/DAY ON 02/04 TAKE 1 TAB 4 TIMES/DAY ON 02/05 TAKE 1 TAB 2 TIMES A DAY ON 02/06 Comments: NOT GIVEN IN HOSPITAL Copies To: Mo KU,Anshu Tompkins; Pedro KU,Har[place]; Lamont Pfeiffer APRN; Ludy KU,Krista Ochoa; Sammie KU,Alek Hopper; Juan KU,Royal
== END 2018-02-03 14:56 | disposition left against medical advice (07) | DRG 130 ==
LOC: ERH 12:26 → CRI 18:13 → 2NB 18:13 → ERHI 18:13 → ENRESERV 19:38 → ENTRNSPT 21:09 → EDTRNSPTSTS 21:30 → EDTRNSPT 21:30 → 2NB 21:30 → CMPTRNSPT 21:47 → 2NB 01-16 08:41 → CRI 01-17 04:43 → ENTRNSPT 02-01 17:53 → EDTRNSPTSTS 02-01 18:03 → EDTRNSPT 02-01 18:20 → 2NB 02-01 19:09 → CMPTRNSPT 02-01 19:34 → 2NB 02-02 07:48
PROVIDERS: Internal Medicine; Internal Medicine Interventional Cardiology; Physician Assistant; Student in an Organized Health Care Education/Training Program
PROC: 0BH17EZ Insertion of Endotracheal Airway into Trachea, Via Natural or Artificial Opening (ICD-10-PCS; principal; 2018-01-17)
PROC: 5A1955Z Respiratory Ventilation, Greater than 96 Consecutive Hours (ICD-10-PCS; principal; 2018-01-17)
DX: J18.9 Pneumonia, unspecified organism (principal); J96.01 Acute respiratory failure with hypoxia; I50.31 Acute diastolic (congestive) heart failure; I47.2 Ventricular tachycardia; R56.9 Unspecified convulsions; I11.0 Hypertensive heart disease with heart failure; E87.3 Alkalosis; E88.09 Other disorders of plasma-protein metabolism, not elsewhere classified; J20.8 Acute bronchitis due to other specified organisms; F10.239 Alcohol dependence with withdrawal, unspecified; J44.0 Chronic obstructive pulmonary disease with (acute) lower respiratory infection; F17.200 Nicotine dependence, unspecified, uncomplicated; F32.9 Major depressive disorder, single episode, unspecified; G47.33 Obstructive sleep apnea (adult) (pediatric); F90.9 Attention-deficit hyperactivity disorder, unspecified type; R59.0 Localized enlarged lymph nodes; G89.29 Other chronic pain; D50.9 Iron deficiency anemia, unspecified; R91.8 Other nonspecific abnormal finding of lung field; D72.829 Elevated white blood cell count, unspecified; T38.0X5A Adverse effect of glucocorticoids and synthetic analogues, initial encounter; M54.9 Dorsalgia, unspecified; Z87.81 Personal history of (healed) traumatic fracture; Z98.890 Other specified postprocedural states; Z88.0 Allergy status to penicillin
CPT/HCPCS: 2NBP; 2NBSP; 87184; CCU; 36415; 36592; 71045; 80307; 81001; 82436; 87040; 87070; 87086; 87147; 87804; 87804-59; 93005; 93010; 93306; 94799; 96374; 96376; 97110-GO; 97116-GO; 97161-GP; 97530-GO; 99291; G0480; J0131; J0456; J0696; J1200; J1630; J1650; J1815; J1940; J2060; J2270; J2920; J2930; J3490; J7040; J7060; J7512; J7608; J7626